=== PATIENT | female | born 1980 | race Caucasian/White ===

== ENCOUNTER 2019-09-18 16:44 | Emergency (ER) | payer SELFPAY ==
[2019-09-18 17:13] VITALS: BP 127/64; PULSE 101; RESP 20; TEMP 36.8; O2SAT 99; BMI 20.7
[2019-09-18 17:41] LABS: Basophils % 0.3 %; Eosinophils % 0.4 %; Hematocrit 37.2 % (37.0-47.0); Hemoglobin 11.4 g/dL (11.5-15.3); Lymphocytes # 2.2 10^3/uL (0.8-4.8); Lymphocytes % 20.4 %; Mean Corpuscular HGB Conc 30.6 g/dL (30.0-36.0); Mean Corpuscular Hemoglobin 25.9 pg (28.0-34.0); Mean Corpuscular Volume 84.5 fL (81-99); Mean Platelet Volume 10.6 fL (7.4-10.4); Monocytes # 0.3 10^3/uL (0.2-0.9); Monocytes % 2.5 %; Neutrophils # 8.3 10^3/uL (1.8-7.7); Neutrophils % 76.1 %; Nucleated Red Blood Cells % 0 %; Platelet Count 248 10^3/cmm (130-400); Red Cell Distribution Width 15.7 % (12.1-15.1); White Blood Count 10.9 10^3/uL (4.0-10.0)
[2019-09-18 17:53] LABS: Alanine Aminotransferase 19 U/L (0-33); Albumin Level 4.2 g/dL (3.5-5.2); Alcohol Level 53 mg/dL (0-10); Alkaline Phosphatase 61 IU/L (35-105); Anion Gap 17.2 (5-19); Aspartate Amino Transferase 29 U/L (0-32); Blood Urea Nitrogen 9 mg/dL (6-20); Calcium 9.4 mg/Dl (8.6-10.0); Carbon Dioxide 25 mmol/L (22-29); Chloride 97 mmol/L (98-107); Globulin 3.4 g/dL (1.3-4.6); Glomerular Filtration Rate 111.9 mL/min (90-130); Glucose 110 mg/dL (74-109); Potassium 4.2 mmol/L (3.5-5.1); Sodium 135 mmol/L (136-145); Total Bilirubin 0.2 mg/dL (0.15-1.2); Total Protein 7.6 g/dL (6.6-8.7)
[2019-09-18 18:01] LABS: Acetaminophen < 5.0 ug/mL (10-30); Salicylate < 0.3 mg/dL (3-10)
== END 2019-09-18 21:35 | disposition left against medical advice (07) ==
LOC: ER 17:58
PROVIDERS: Emergency Medicine; Emergency Provider Physician Assistant; Family Provider Nurse Practitioner Family
DX: Z53.21 Procedure and treatment not carried out due to patient leaving prior to being seen by health care provider (principal)
CPT/HCPCS: 36415; 80053; 80307; 85025; 99281

== ENCOUNTER 2019-09-19 11:21 | Emergency (ER) | payer SELFPAY ==
[2019-09-19 11:23] VITALS: BP 112/76; PULSE 86; RESP 16; TEMP 36.6; O2SAT 99; BMI 20.7
--- NOTE | 2019-09-19 11:27 | ED_ITS ---
HPI - Psych General: Chief Complaint: Psychiatric Symptoms Stated Complaint: STRESSED OUT Time Seen by Provider: 09/19/19 11:27 Source: patient Mode of arrival: ambulatory Limitations: no limitations History of Present Illness: HPI Narrative: Patient is a 39-year-old female who presents to ED today with complaints of severe anxiety; patient states she is having panic attacks; she states she does not want a leave her home or go out in public due to the anxiety; she has chronic depression as well as schizophrenia; patient states she has been on every medication known to man and nothing apart from Valium really helps her symptoms much; she apparently was admitted in a facility recently in [place]; patient states she was seen at her PCP earlier this morning who recommended she come to the ED for admission to [facility]; patient denies feeling suicidal or homicidal; she states that auditory hallucinations are chronic and not telling her to harm herself or others in any way; she reports chronic back pain in which she used to take oxycodone for-states she is having PCP place pain management referral and also has chronic GERD and is out of her stomach meds Duration: constant Associated symptoms: Reports auditory hallucinations and depression; Deny visual hallucinations, homicidal ideation or suicidal ideation Review of Systems Const: Denies: fever or chills Card: Denies: chest pain, palpitations, lightheadedness or syncope Resp: Denies: shortness of breath GI: Denies: abdominal pain, nausea, vomiting or diarrhea Skin/Breast: Denies: rash Neuro: Denies: headache Psych: Reports: anxiety, depression, panic attacks and auditory hallucinations; Denies: paranoia, visual hallucinations, suicidal ideation or homicidal ideation PFS ED PFSH: Statuses (acute, chronic, etc) shown below reflect problem list status as previously entered and may not be historically accurate Social History (Updated 09/15/19 @ 15:19 by Alyssia Iqbal LPN) Smoking and tobacco status: current every day smoker cigarettes Packs smoked per day: 0.5 Alcohol intake: current Alcohol intake frequency: 3 or more drinks per day Alcohol type: hard liquor Lives independently: Yes Household members: family Marital status: Physical Exam Const: COMMON NORMALS: no apparent distress, oriented x3, alert and well nourished GENERAL APPEARANCE: cooperative and well kempt Resp: COMMON NORMALS: normal respiratory effort and clear to auscultation bilaterally AUSCULTATION: clear to auscultation bilaterally Cardio: COMMON NORMALS: regular rate and regular rhythm RATE: regular rate RHYTHM: regular rhythm Neuro: COMMON NORMALS: oriented x3 SENSORIUM/ORIENTATION: Yes alert Psych: COMMON NORMALS: mental status grossly normal, thought process normal, cooperative, affect normal, speech normal and activity/motor behavior normal APPEARANCE: Yes well kempt ATTITUDE: Yes calm ACTIVITY/MOTOR BEHAVIOR: Yes appropriate eye contact, No psychomotor agitation and Yes fidgeting SPEECH: Yes normal speech MOOD & AFFECT: Yes anxious THOUGHT PROCESS: normal thought process THOUGHT CONTENT: Yes normal thought content MEMORY/COGNITION: Yes cognition grossly intact INSIGHT: fair JUDGEMENT: judgment good MDM - Psych Lab Data: Labs: Lab Results 09/19/19 Range/Units 12:54 Urine Opiates Scre en Negative (Negative) ng/mL Ur Barbiturates Sc reen Negative (Negative) ng/mL Ur Phencyclidine S crn Negative (Negative) ng/mL Ur Amphetamines Sc reen Negative (Negative) ng/mL U Benzodiazepines Scrn Positive H (Negative) ng/mL Urine Cocaine Scre en Negative (Negative) ng/mL U Marijuana (THC) Screen Positive H (Negative) ng/mL Discharge Plan Discharge Patient Disposition: Home, Self-Care Clinical Impression: Chronic anxiety Schizophrenia Qualifiers: Schizophrenia type: unspecified Qualified Code(s): F20.9 - Schizophrenia, unspecified Acid reflux disease Qualifiers: Esophagitis presence: without esophagitis Qualified Code(s): K21.9 - Gastro- esophageal reflux disease without esophagitis Condition: Stable Prescriptions: New Vistaril 50 mg capsule 50 mg PO Q8H PRN (Reason: anxiety) Qty: 20 RF: 0 pantoprazole 20 mg tablet,delayed release (DR/EC) 20 mg PO QAM 28 Days Qty: 28 RF: 0 gabapentin 300 mg capsule 300 mg PO DAILY 7 Days Qty: 90 RF: 0 Discharge Orders: Discharge Order (Routine); Ordered 09/19/19 Ordered By: Audra Headley Referrals: Maliha Beverly APN [Family Provider] - Discharge Diet: Usual diet Discharge Activity: Resume usual activity Activity Restrictions/Additional Instructions: GO TO [facility] FOR YOUR INTAKE SCREENING EXAM. Discharge Date/Time: 09/19/19 13:50 Coding Level of Care Code ED Service Support Representative for Chg Fwd Exam Problem Focused
[2019-09-19 13:28] LABS: Amphetamines Screen Urine Negative (Negative); Barbiturates Screen Urine Negative (Negative); Benzodiazepines Screen Urine Positive (Negative); Cocaine Screen Urine Negative (Negative); Opiate Screen Urine Negative (Negative); PCP Screen Urine Negative (Negative); THC Screen Urine Positive (Negative)
[2019-09-19 13:47] VITALS: BP 106/82; PULSE 70; O2SAT 100
[2019-09-19] MEDS: acetaminophen 500 mg Tablet 1000 MG PO (13:50)
== END 2019-09-19 13:50 | disposition home or self-care (01) ==
PROVIDERS: Emergency Provider Physician Assistant; Family Provider Nurse Practitioner Family
DX: F20.9 Schizophrenia, unspecified (principal); F41.8 Other specified anxiety disorders; K21.9 Gastro-esophageal reflux disease without esophagitis; F17.210 Nicotine dependence, cigarettes, uncomplicated
CPT/HCPCS: 80307; 84703; 99284; A9270

== ENCOUNTER 2019-09-29 19:16 | Inpatient (IN) | payer SELFPAY ==
[2019-09-29] VITALS (40 sets, daily range): BP systolic 112–121; BP diastolic 60–83; PULSE 71–107; RESP 12–22; O2SAT 81–100; BMI 29.9
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
[2019-09-29] MEDS: ziprasidone 20 mg/mL SDV (19:30)
[2019-09-29] MEDS: LORazepam 2 mg/mL INJ 1 mL (19:45)
[2019-09-29] MEDS: diphenhydrAMINE 50 mg/mL SDV 1mL (19:56)
[2019-09-29 20:01] LABS: HCG Qualitative Urine. Negative (Negative)
[2019-09-29 21:15] LABS: Basophils % 0.2 %; Eosinophils % 0.2 %; Hematocrit 43.8 % (37.0-47.0); Hemoglobin 13.5 g/dL (11.5-15.3); Lymphocytes # 1.9 10^3/uL (0.8-4.8); Lymphocytes % 34.8 %; Mean Corpuscular HGB Conc 30.8 g/dL (30.0-36.0); Mean Corpuscular Hemoglobin 25.7 pg (28.0-34.0); Mean Corpuscular Volume 83.4 fL (81-99); Mean Platelet Volume 11.1 fL (7.4-10.4); Monocytes # 0.2 10^3/uL (0.2-0.9); Monocytes % 3.2 %; Neutrophils # 3.3 10^3/uL (1.8-7.7); Neutrophils % 61.4 %; Nucleated Red Blood Cells % 0 %; Platelet Count 234 10^3/cmm (130-400); Red Blood Count 5.25 10^6/uL (4.1-5.3); Red Cell Distribution Width 15.9 % (12.1-15.1); White Blood Count 5.4 10^3/uL (4.0-10.0)
[2019-09-29] MEDS: ketamine 100 mg/mL Inj 5 mL 500 MG (21:23)
[2019-09-29 21:30] LABS: Add Urine Microscopic? NO
[2019-09-29 21:34] LABS: Alanine Aminotransferase 24 U/L (0-33); Alkaline Phosphatase 65 IU/L (35-105); Anion Gap 22.1 (5-19); Aspartate Amino Transferase 35 U/L (0-32); Blood Urea Nitrogen 6 mg/dL (6-20); Calcium 10.1 mg/dL (8.5-10.5); Carbon Dioxide 20 mmol/L (22-29); Chloride 111 mmol/L (98-107); Globulin 3.5 g/dL (1.3-4.6); Glomerular Filtration Rate 111.9 mL/min (90-130); Glucose 118 mg/dL (74-109); Potassium 4.1 mmol/L (3.5-5.1); Sodium 149 mmol/L (136-145); Total Bilirubin 0.2 mg/dL (0.15-1.2); Total Protein 8.5 g/dL (6.6-8.7)
[2019-09-29 21:36] LABS: Urine Appearance Clear (CLEAR); Urine Color Straw (Yellow); pH Urine 5 (5-7)
[2019-09-29 21:37] LABS: Bilirubin Urine Neg (NEGATIVE); Blood Urine Neg (Negative); Glucose Urine UA Norm (Normal); Ketones Urine Negative (Negative); Leukocyte Esterase Urine Negative (Negative); Nitrate Urine Negative (Negative); Protein Urine Neg (Negative); Specific Gravity, Urine 1.005 (1.005-1.030); Urobilinogen Urine Norm (Negative)
[2019-09-29 21:40] LABS: Acetaminophen < 5.0 ug/mL (10-30); Salicylate < 0.3 mg/dL (3-10)
[2019-09-29 21:49] LABS: Alcohol Level 304 mg/dL (0-10)
[2019-09-29 21:54] LABS: Amphetamines Screen Urine Negative (Negative); Barbiturates Screen Urine Negative (Negative); Benzodiazepines Screen Urine Negative (Negative); Cocaine Screen Urine Negative (Negative); Opiate Screen Urine Negative (Negative); PCP Screen Urine Negative (Negative); THC Screen Urine Positive (Negative)
--- NOTE | 2019-09-29 22:31 | PC.NURSE ---
as primary nurse. i confirm and agree with Darlingacoustical tile drill press operator violent restraint assessments
--- NOTE | 2019-09-29 22:52 | PC.NURSE ---
Pt transferred from restrain bed to hospital bed via hospital staff at approx 2030. Pt placed in soft 4 point restraints. Inwelling harrington catheter placed x1 attempt without difficulties. 2000ml of urine drained from harrington at approx 2140. No extremity compromise noted during during extremity checks and upon restraint removal
[2019-09-29] MEDS: folic acid 1 MG, multivitamin inj 10 ML, thiamine 100 MG in sodium chloride 0.9% 1,000 ML 252.8 MG IV (23:55)
[2019-09-30] VITALS (26 sets, daily range): BP systolic 100–127; BP diastolic 45–82; PULSE 67–106; RESP 15–21; TEMP 36.6–37; O2SAT 87–100
[2019-09-30 00:19] LABS: Alcohol Level 239 mg/dL (0-10)
--- NOTE | 2019-09-30 01:07 | PC.NURSE ---
5 rec'd pt to ed room 8 restrained. moved to violent restraint bed related behavioral activity. yelling screaming profanity, threatening staff. thrashing. attempting to spit on and lick staff. 1929 geodon 20mg given. 1944 conts with violent behavior ativan 2mg given. 1955 benedryl 50 given r/t cont behavior 2004 [id number] given r/t to cont violent behavior. conts with thrashing and fighting restraints and cuzing staff. 2014 pt sleepy and more calm at this time. 2024 harrington cath placed as ordered 2029 moved over to ER cart with soft restraints. 2044 remains sedated at this time. 1:1 sitter at bedside as well as patel,box sealing machine feeder. 2119 soft restraints off at this time. currently remains sedated
--- NOTE | 2019-09-30 08:02 | PC.NURSE ---
Nursing Note; random room inspection completed no contraband found.
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
[2019-09-30] MEDS: multivitamin therapeutic Tablet 1 TAB PO (09:06)
[2019-09-30] MEDS: folic acid 1 mg Tablet PO (09:06)
[2019-09-30] MEDS: thiamine 100 mg Tablet PO (09:06)
[2019-09-30] MEDS: nicotine 2 mg Gum BUCCAL (11:00)
[2019-09-30] MEDS: cloNIDine 0.1 mg Tablet PO (20:53)
[2019-09-30] MEDS: OLANZapine 10 mg TABLET PO (20:53)
[2019-10-01 06:00] VITALS: BP 111/71; PULSE 85; RESP 17; TEMP 37.6; O2SAT 98
[2019-10-01] MEDS: thiamine 100 mg Tablet PO (09:27)
[2019-10-01] MEDS: multivitamin therapeutic Tablet 1 TAB PO (09:27)
[2019-10-01] MEDS: folic acid 1 mg Tablet PO (09:27)
--- NOTE | 2019-10-01 11:05 | PM.NPN ---
Subjective NPU Subjective: Interval history: Zoila presents today reporting that she is tolerating the medication adjustments that we may and that she talk to her brother and that she believes she is going to have a place to stay. We discussed meeting with the treatment team in the morning and exploring the opportunities available to her. She did endorse having a lot of anxiety and we advised her to utilize the Vistaril like she does at home. Mental Status Exam MSE Comments: This is a slender white female with adequate dress, grooming and eye contact. Poor dentition/absent teeth no abnormal movements. Cooperative with exam in mild distress. Speech was decreased rate and volume. Mood described as anxious, affect congruent. Thought process organized. Thought content: Patient denied any suicidal or homicidal ideation, though there was reports of her trying to jump out of the vehicle, there were no delusions noted but she does endorse paranoia, she endorses auditory hallucinations and occasional visual hallucinations. Attention and concentration appeared intact and memory appeared unreliable but none were formally tested. She is alert and oriented x3. Insight and judgment are limited. Vitals/I&O/Wt Last Vital Signs Temperature 98.5, pulse 95, respirations 28, pulse ox 100%, blood pressure 112/67. Weight last 48 hrs Weight 49.215 kg Physical Exam Urinary Catheter Management^: Epstein: Cath Placed During This Visit: no Data NPU : 09/29/19 21:05 09/29/19 21:05 A&P Additional A&P Information This is a 39-year-old white female with a reported extended history of trauma, intellectual disability, significant addiction and reported thought disorder who presents off of medication with resolving intoxication with a hope to be discharged. 1. Continue current medication. 2. initiate lamictal and continue titration after discharge 3. Encourage individual, group and milieu therapy. 4. Continue every 15 minute checks for safety. 5. At the time of discharge encourage sober living and aftercare at the highest level of treatment to which she is willing to commit. Involuntary Hold Information 96 Hour Hold: 96 Hour Involuntary Admission: No Attestations NPU Medical Necessity Statement*: Inpatient hospitalization is medically necessary and the clinically appropriate intervention at this time. We will initiate medications and titrate to effect. Likely length of stay 2 to 5 days. Coding Level of Care Code Acute Transverse Abdominal Muscle Surgeon for Blanca Coffman
[2019-10-01 13:40] VITALS: O2SAT 103
[2019-10-01] MEDS: nicotine 2 mg Gum BUCCAL ×2 (14:36→17:48)
[2019-10-01] MEDS: hyDROXYzine 25 mg Capsule 50 MG PO (17:48)
[2019-10-01] MEDS: OLANZapine 10 mg TABLET PO (20:50)
[2019-10-01 20:51] VITALS: BP 127/82
[2019-10-01] MEDS: cloNIDine 0.1 mg Tablet PO (20:51)
[2019-10-01] MEDS: trazodone 50 mg Tablet PO (20:51)
[2019-10-01 22:00] VITALS: BP 112/67; PULSE 95; RESP 28; TEMP 36.9; O2SAT 100
[2019-10-02 06:00] VITALS: BP 99/56; PULSE 65; RESP 17; TEMP 36.9; O2SAT 99
[2019-10-02] MEDS: thiamine 100 mg Tablet PO (08:34)
[2019-10-02] MEDS: folic acid 1 mg Tablet PO (08:34)
[2019-10-02] MEDS: multivitamin therapeutic Tablet 1 TAB PO (08:34)
[2019-10-02] MEDS: nicotine 2 mg Gum BUCCAL (12:15)
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
[2019-10-02 18:00] VITALS: BP 99/56; PULSE 65; RESP 17; TEMP 36.9; O2SAT 99
--- NOTE | 2019-10-02 19:20 | PM.NPN ---
Subjective NPU Subjective: Interval history: Zoila presented today with a plan to possibly discharge to home. She endorsed feeling better and feeling that the medication would slowly but surely through his job and she would be able to manage how she is feeling. She reportedly got a hold of her brother had made arrangements for a ride. Discharge process was put into place but then she was unable to get a ride before it was too late. Mental Status Exam MSE Comments: This is a slender white female with adequate dress, grooming and eye contact. Poor dentition/absent teeth no abnormal movements. Cooperative with exam in no acute distress. Speech was slightly decreased rate and volume. Mood described as a little better, affect congruent. Thought process organized. Thought content: Patient denied any suicidal or homicidal ideation, there were no delusions noted but she does endorse paranoia that is improving, she endorses decreasing auditory hallucinations and denied visual hallucinations. Attention and concentration appeared intact and memory appeared unreliable but none were formally tested. She is alert and oriented x3. Insight and judgment are limited. Vitals/I&O/Wt Last Vital Signs Temp 98.6 F 10/02/19 21:09 Pulse 92 10/02/19 21:09 Resp 24 H 10/02/19 21:09 BP 116/89 10/02/19 21:09 Pulse Ox 98 10/02/19 21:09 Physical Exam Urinary Catheter Management^: Epstein: Cath Placed During This Visit: no Data NPU : 09/29/19 21:05 09/29/19 21:05 A&P Additional A&P Information This is a 39-year-old white female with a reported extended history of trauma, intellectual disability, significant addiction and reported thought disorder who presents off of medication with resolving intoxication with a hope to be discharged. 1. Continue current medication. 2. She decided against initiating the Lamictal and so maybe she sees her outpatient doctor. 3. Encourage individual, group and milieu therapy. 4. Continue every 15 minute checks for safety. 5. At the time of discharge encourage sober living and aftercare at the highest level of treatment to which she is willing to commit. Involuntary Hold Information 96 Hour Hold: 96 Hour Involuntary Admission: No Attestations NPU Medical Necessity Statement*: Inpatient hospitalization is medically necessary and the clinically appropriate intervention at this time. We will monitor medications. Plan for discharge tomorrow. Likely length of stay one day. Coding Level of Care Code Acute Record Systems Analyst for Blanca Coffman
[2019-10-02 21:09] VITALS: BP 116/89; PULSE 92; RESP 24; TEMP 37; O2SAT 98
[2019-10-02] MEDS: cloNIDine 0.1 mg Tablet PO (21:31)
[2019-10-02] MEDS: OLANZapine 10 mg TABLET PO (21:31)
[2019-10-02] MEDS: trazodone 50 mg Tablet PO (21:34)
[2019-10-03 06:00] VITALS: BP 102/55; PULSE 66; RESP 18; TEMP 36.6; O2SAT 98
[2019-10-03] MEDS: thiamine 100 mg Tablet PO (08:46)
[2019-10-03] MEDS: multivitamin therapeutic Tablet 1 TAB PO (08:46)
[2019-10-03] MEDS: folic acid 1 mg Tablet PO (08:46)
--- NOTE | 2019-10-03 09:24 | PC.NURSE ---
discharge meds called into [facility], Clonidine & Zyprexa, spoke to Una siegel pharmacist.
== END 2019-10-03 09:00 | disposition home or self-care (01) | DRG 882 ==
LOC: ER 23:53 → NP 23:53
PROVIDERS: Admitting Provider Psychiatry & Neurology Psychiatry; Emergency Provider Family Medicine; Family Provider Nurse Practitioner Family; PCP Family Medicine; Visit Provider Psychiatry & Neurology Psychiatry
DX: F43.20 Adjustment disorder, unspecified (principal); F60.89 Other specific personality disorders; F17.210 Nicotine dependence, cigarettes, uncomplicated; F12.90 Cannabis use, unspecified, uncomplicated; Z88.8 Allergy status to other drugs, medicaments and biological substances; Z79.899 Other long term (current) drug therapy
CPT/HCPCS: 12345; 36415; 51702; 80053; 80307; 81003; 81025; 85025; 99285; A9270; J1200; J2060; J3411; J3486; J3490; J7030

== ENCOUNTER → 2020-01-18 16:01 | Outpatient (BNVA) | payer MEDICAID, SELFPAY | PROVIDERS: PCP Family Medicine; Visit Provider Nurse Practitioner | DX: F60.3 Borderline personality disorder (principal); M54.17 Radiculopathy, lumbosacral region; K21.9 Gastro-esophageal reflux disease without esophagitis | CPT/HCPCS: 81000 ==

== ENCOUNTER → 2020-03-14 15:45 | Outpatient (BNVA) | payer MEDICAID, SELFPAY | PROVIDERS: PCP Family Medicine; Visit Provider Nurse Practitioner | DX: N91.2 Amenorrhea, unspecified (principal); F41.9 Anxiety disorder, unspecified; F32.9 Major depressive disorder, single episode, unspecified; M54.17 Radiculopathy, lumbosacral region; R60.9 Edema, unspecified; L98.9 Disorder of the skin and subcutaneous tissue, unspecified | CPT/HCPCS: 81025 ==

== ENCOUNTER 2022-02-05 14:51 | Inpatient (IN) | payer MEDICAID, SELFPAY ==
--- NOTE | 2022-02-05 15:01 | W.ED.GENADLT ---
HPI - General Adult General: Chief complaint: Psychiatric Symptoms Stated complaint: si Time Seen by Provider: 02/05/22 15:01 History of Present Illness: HPI: [41]yo patient w/ hx of depression presenting for depression with SI with plan. She was planning to strangle herself and cut her self before deciding to come the ER. On arrival, the patient is AAOx3 and cooperative with my evaluation. No focal complaints of chest pain, shortness of breath, palpitations, N/V, focal GI/ complaints. Currently denies HI. No complaints of hallucinations. Onset: acute on chronic Duration: ongoing Location: home Severity: severe Associated symptoms: Deny chest pain, dyspnea, nausea, rash, palpitations or vomiting Review of Systems Const: Denies: fever(s) or chills Eyes: Denies: change in vision ENMT: Denies: mouth pain Card: Denies: chest pain or palpitations Resp: Denies: dyspnea or non-productive cough GI: Denies: abdominal pain, nausea, vomiting or diarrhea : Denies: dysuria Musc: Denies: extremity pain Skin/Breast: Denies: rash or new lesions Neuro: Denies: weakness in extremities Psych: Reports: depression and suicidal ideation Mo/Lymph: Denies: easy bruising PFSH ED PFSH: Medical History Alcohol dependence Amphetamine addiction Borderline personality disorder Cannabis dependence with current use Chronic post-traumatic stress disorder External hemorrhoid Gastric reflux Insomnia Radiculopathy, lumbosacral region left more than right Surgical History History of 4 times Family History Other COPD (chronic obstructive pulmonary disease) with emphysema Denies family history of Bleeding disorder Social History Smoking and tobacco status: current every day smoker cigarettes Packs smoked per day: 0.5 Second hand smoke exposure: Yes Smoking risk assessment/counseling performed?: Yes Alcohol intake: unknown Desire information about alcohol rehabilitation?: No Counseling given: No Desire information about substance/drug rehabilitation?: No Counseling given: No Adopted: No Caregiver/support person: No Lives independently: Yes Household members: family Housing: House Marital status: Legally Number of children: 4 service: No Current occupational status: disabled History of recent travel: No Current gender identity: Female Physical Exam Const: COMMON NORMALS: alert HENMT: COMMON NORMALS: atraumatic HEAD & SCALP: atraumatic MOUTH: moist mucous membranes not abnormal Eye: COMMON NORMALS: EOMs intact bilaterally and conjunctivae normal CONJUNCTIVA: Yes conjunctivae normal Neck/C-Spine: COMMON NORMALS: full ROM and supple Resp: COMMON NORMALS: normal respiratory effort and clear to auscultation bilaterally AUSCULTATION: clear to auscultation bilaterally Cardio: COMMON NORMALS: regular rate RATE: regular rate GI: COMMON NORMALS: Soft to palpation and non-tender PALPATION: Yes Soft to palpation Extremity: COMMON NORMALS: full ROM Neuro: SENSORIUM/ORIENTATION: Yes alert MOTOR EXAM: No Abnormal motor strength present and Other motor observations present (no focal motor deficits) Psych: SPEECH: Yes excessive MOOD & AFFECT: Yes depressed mood, Yes anxious, Yes tearful and Yes fearful Course Vital Signs: Vital signs: Vital Signs Temperature 99.4 F 02/05/22 15:22 Pulse Rate 92 02/05/22 15:22 Respiratory Rate 24 H 02/05/22 15:22 Blood Pressure 116/78 02/05/22 15:22 Pulse Oximetry 97 02/05/22 15:22 MDM - General Adult Medical Decision Making [41]yo patient w/ hx of depression presenting for depression with SI with plan. HDS, exam within normal limit Thoughts are linear and organized, and the patient has no AH/VH, or HI. Clinically the patient displays no overt toxidrome; they are well appearing, with low suspicion for toxic ingestion given history and exam. Symptoms unlikely 2/2 anemia, hypothyroidism, infection, or ICH. Workup: CBC, CMP, Lipase, salicylate/tylenol, HCG, UDS Lab findings: wnl. Patient received 1mg of ativan for anxiety [4:30pm] On reassessment, labs and workup wnl. Patient is hemodynamically stable with no acute medical complaints. Case discussed with psychiatric provider Dr. Dejesus at [facility] psych inpatient with recommendation for admission. Patient is placed under a 96 hr hold for significant thoughts with suicide and almost actuating plan. Disposition: Psych Discharge Plan Discharge Condition: Stable Prescriptions: No Action imiquimod [Aldara] 5 % cream in packet 1 applic topical .at bedtime M-F Qty: 12 0RF clonidine HCl 0.1 mg tablet 0.1 mg PO BEDTIME 30 Days Qty: 30 2RF gabapentin 800 mg tablet 800 mg PO TID Qty: 90 2RF nicotine 21 mg/24 hr patch 24 hour 1 patch transdermal DAILY Qty: 28 0RF Referrals: Honorio Solares, FISHING ROD ASSEMBLER-C [Primary Care Provider] - Coding Level of Care Code ED Automatic Lathe Setter for Chg Fwd Exam Comprehensive
[2022-02-05 15:03] VITALS: BMI 20.7
[2022-02-05 15:22] VITALS: BP 116/78; PULSE 92; RESP 24; TEMP 37.4; O2SAT 97
[2022-02-05 15:57] LABS: Eosinophils # 0.1 10^3/uL (0.0-0.8); Eosinophils % 1.1 %; Hematocrit 45.1 % (37.0-47.0); Lymphocytes # 2.2 10^3/uL (0.8-4.8); Lymphocytes % 29.2 %; Mean Corpuscular HGB Conc 33.3 g/dL (30.0-36.0); Mean Corpuscular Hemoglobin 28.1 pg (28.0-34.0); Mean Corpuscular Volume 84.6 fl (81-99); Mean Platelet Volume 11.5 fL (7.4-10.4); Monocytes # 0.4 10^3/uL (0.2-0.9); Monocytes % 4.6 %; Neutrophils # 4.89 10^3/uL (1.8-7.7); Nucleated Red Blood Cells % 0 %; Platelet Count 174 10^3/cmm (130-400); Red Blood Count 5.33 10^6/uL (4.1-5.3); Red Cell Distribution Width 13.3 % (12.1-15.1); White Blood Count 7.5 10^3/uL (4.0-10.0)
[2022-02-05] MEDS: LORazepam 1 mg Tablet PO (16:13)
[2022-02-05 16:30] LABS: Alanine Aminotransferase 23 U/L (0-33); Albumin Level 4.2 g/dL (3.5-5.2); Alkaline Phosphatase 73 IU/L (35-105); Anion Gap 13.6 (5-19); Aspartate Amino Transferase 23 U/L (0-32); Blood Urea Nitrogen 6 mg/dL (6-20); Calcium 9.1 mg/dL (8.5-10.5); Carbon Dioxide 24 mmol/L (22-29); Chloride 101 mmol/L (98-107); Globulin 3.2 g/dL (1.3-4.6); Glomerular Filtration Rate 110.7 mL/min (90-130); Glucose 138 mg/dL (65-115); Lipase 12 U/L (13-60); Osmolality Calculated 280 mOsm/kg (285-295); Potassium 3.6 mmol/L (3.5-5.1); Salicylate 0.9 mg/dL (3-10); Sodium 135 mmol/L (136-145); Total Bilirubin 0.4 mg/dL (0.15-1.2); Total Protein 7.4 g/dL (6.6-8.7)
[2022-02-05 16:39] LABS: Acetaminophen < 5.0 ug/mL (10-30)
[2022-02-05 16:49] LABS: Amphetamines Screen Urine Negative (Negative); Barbiturates Screen Urine Negative (Negative); Benzodiazepines Screen Urine Negative (Negative); Cocaine Screen Urine Negative (Negative); Opiate Screen Urine Negative (Negative); PCP Screen Urine Negative (Negative); THC Screen Urine Negative (Negative)
[2022-02-05 16:52] LABS: HCG, Serum Qual Negative (Negative)
[2022-02-05 18:04] VITALS: BP 128/82; PULSE 90; RESP 18; TEMP 36.7; O2SAT 95
[2022-02-05] MEDS: OLANZapine 5 mg ODT PO (18:42)
[2022-02-05] MEDS: hyDROXYzine 25 mg Capsule 50 MG PO (18:42)
[2022-02-05 20:38] VITALS: BP 110/72; PULSE 90; RESP 18; TEMP 36.6; O2SAT 96
--- NOTE | 2022-02-05 20:38 | PC.ADMIT ---
Admission Note: Patient came to the ED for help voluntarily. There is an affidavit that states that the patient expressed a plan to cut herself or strangle herself. Her UDS was negative and she states her drug of choice in the past was crack cocaine. Patient endorses auditory hallucinations but state that they are nice to her. She reports a history of paranoid schizophrenia. She wants her Valium and when she couldn't get it she wanted to leave AMA. The patient,Zoila German,41 y/o, was given written information regarding hospital policies, unit procedures and contact persons. Patient's smoking status: current every day smoker. Vital Signs - 8 hr 02/05/22 15:22 02/05/22 18:04 Temperature 99.4 F 98.0 F Pulse Rate 92 90 Respiratory Rate 24 H 18 Blood Pressure 116/78 128/82 Pulse Oximetry 97 95
[2022-02-05 23:22] VITALS: BP 110/72
--- NOTE | 2022-02-05 23:24 | PC.NURSE ---
Patient came to the nurses station around 1944 and said that she wanted her Valium. She received Zyprexa and Vistaril at 1843. She was educated on the medications that she had been given and she was resistant to listen. She said that she came in voluntarily and wanted to leave now. It was explained to her that she had not given the medication time to work and that we did have an affidavit which could hold her here. She verbalized understanding and went back to her room. She was asleep by 2044. She refused her clonidine and gabapentin.
[2022-02-06 06:00] VITALS: BP 108/75; PULSE 83; RESP 20; TEMP 36.9; O2SAT 94
[2022-02-06] MEDS: OLANZapine 5 mg ODT PO (09:38)
[2022-02-06] MEDS: gabapentin 400 mg Capsule 800 MG PO ×3 (09:38→20:18)
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
[2022-02-06 14:00] VITALS: BP 113/69; PULSE 69; RESP 20; TEMP 36.7; O2SAT 95
[2022-02-06 19:37] VITALS: BP 95/64; PULSE 60; RESP 16; TEMP 36.7; O2SAT 93
[2022-02-06 20:18] VITALS: BP 95/64
--- NOTE | 2022-02-06 23:30 | PC.NURSE ---
PT HAS BEEN IN BED RESTING WITH EYES CLOSED. WAKEN BY NURSE TO SHIFT ASSESSMENT. PT DENIED ANY SI/HI OR AVH. STATES SHE IS JUST VERY TIRED. REMAINED IN BED AFTER ASSESSMENT. NO C/O VOICED.
[2022-02-07 06:00] VITALS: BP 90/56; PULSE 59; RESP 16; TEMP 37; O2SAT 92
[2022-02-07] MEDS: gabapentin 400 mg Capsule 800 MG PO ×2 (08:38→20:18)
[2022-02-07] MEDS: hyDROXYzine 25 mg Capsule 50 MG PO (08:40)
--- NOTE | 2022-02-07 08:40 | PC.NURSE ---
PRN Medication Patient fidgeting and pacing, mumbling under her breath. Patient states she feels anxious and asked for something to help with this. Vistaril 50mg given PO.
--- NOTE | 2022-02-07 09:30 | PC.NURSE ---
PRN Follow Up Patient lying in bed with eyes closed. Will continue to monitor.
--- NOTE | 2022-02-07 12:03 | P.NPUPN_ITS ---
Subjective NPU Subjective: She continues to be very anxious. She says that she is not having any suicidal thoughts. She wants to be released and thinks that she can go to the mental health clinic and get Valium or clonazepam immediately. Yesterday she told me that they only gave her clonazepam at [facility] and that did not work. Today she says that they did work. It has been over 2 years since they have given it to her there. She was told that that would be extremely unlikely. She was told again the appropriate treatment for anxiety and says that she does not want to take an antidepressant. She would need a Medicaid ride before she can go home and that might be Wednesday before we can have that arranged. She does not seem ready for discharge today. Mental Status Exam MSE Comments: This is a 41-year-old thin female who appears approximately her stated age and is in no acute distress. She was found sitting on her bed with her head hanging down. She is focused on leaving so that she can go to a place that will give her my Valium psychomotor activity is normal. Speech is at a regular rate and rhythm, normal volume, good articulation, not pressured. Alert, oriented X3 Attention and concentration appear to be normal. Memory is intact Mood is described as good. Affect is is dysphoric. Thought process is logical and goal-directed. Thought content: Denies auditory and visual hallucinations. No delusions or paranoia are noted. No current suicidal ideation. He denies homicidal ideation. Fund of knowledge is probably about average. Insight and judgment appear to be poor. Impulse control is fair. Cognition: Patient Appearance: Disheveled/Poor Hygiene Level of Consciousness: Awake Patient Cognition Impaired: No Ability to Follow Directions: Good Patient Orientation (long list): Person, Place, Name, Age and Birthday Comprehension Ability: Understands Concepts Hallucination Type: None Delusion Description: Not Present Thought Process: Disorganized and Indecisive Affect: Affect Description: Labile Depressive Symptoms: Increased Anxiety, Increased Fatigue and Increased Irritability Behavior: Patient Behavior: Appropriate and Cooperative Speech Pattern: Appropriate and Mumbled Vitals/I&O/Wt Last Vital Signs Temp 98.6 F 02/07/22 06:00 Pulse 59 L 02/07/22 06:00 Resp 16 02/07/22 06:00 BP 90/56 02/07/22 06:00 Pulse Ox 92 02/07/22 06:00 Weight last 48 hrs Weight 63.503 kg Data NPU : 02/05/22 15:50 02/05/22 15:50 A&P Assessment and plan (1) Insomnia: Status: Acute (2) Borderline personality disorder: Status: Chronic (3) Chronic post-traumatic stress disorder: Status: Acute (4) Anxiety and depression: Status: Chronic Plan This is a 41-year-old female with multiple past traumas who has been previously diagnosed with borderline personality disorder who presents with anxiety and depression wanting to start back on Valium Plan: 1. Continue current medication. 2. Continue every 15 minute checks for safety. 3. Encourage individual, group and milieu therapies. 4. Encourage sober living treatment after discharge at the highest level of care to which she is willing to commit. 5. We will monitor for safety for herself in the community prior to discharge. Involuntary Hold Information 96 Hour Hold: 96 Hour Involuntary Admission: No Attestations NPU Medical Necessity Statement*: Inpatient hospitalization is medically necessary and the clinically appropriate intervention at this time. We will initiate medications and make changes as indicated. Coding Level of Care Code Acute Clinical Services Professional for Blanca Fwaura Diagnoses Insomnia G47.00 Borderline personality disorder F60.3 Chronic post-traumatic stress disorder F43.12 Anxiety and depression F41.9; F32.9
[2022-02-07 14:00] VITALS: BP 97/60; PULSE 73; RESP 16; TEMP 36.9; O2SAT 97
[2022-02-07 19:49] VITALS: BP 110/66; PULSE 63; RESP 18; TEMP 37.3; O2SAT 94
[2022-02-07 20:17] VITALS: BP 110/66
[2022-02-07] MEDS: cloNIDine 0.1 mg Tablet PO (20:17)
[2022-02-08 06:00] VITALS: BP 104/71; PULSE 84; RESP 18; TEMP 36.8; O2SAT 97
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
[2022-02-08] MEDS: gabapentin 400 mg Capsule 800 MG PO (08:59)
[2022-02-08 09:15] VITALS: BP 104/71; PULSE 84; RESP 18; TEMP 36.8; O2SAT 97
--- NOTE | 2022-02-09 08:34 | PC.OT ---
OT EVALUATION ORDERS RECEIVED. PATIENT DISCHARGED BEFORE EVALUATION COULD BE COMPLETED.
== END 2022-02-08 09:47 | disposition home or self-care (01) | DRG 880 ==
LOC: ER 15:01 → NP 17:10
PROVIDERS: Admitting Provider Psychiatry & Neurology Psychiatry; Emergency Provider Emergency Medicine; PCP Nurse Practitioner; Visit Provider Psychiatry & Neurology Psychiatry
DX: F41.8 Other specified anxiety disorders (principal); R45.851 Suicidal ideations; F60.3 Borderline personality disorder; F43.12 Post-traumatic stress disorder, chronic; F17.210 Nicotine dependence, cigarettes, uncomplicated; G47.00 Insomnia, unspecified
CPT/HCPCS: 36415; 80053; 80306; 80307; 83690; 84703; 85025; 99285

== ENCOUNTER → 2022-07-13 09:06 | Outpatient (BNVA) | payer MEDICAID, SELFPAY | PROVIDERS: PCP Nurse Practitioner; Visit Provider Anesthesiology Pain Medicine | DX: M54.16 Radiculopathy, lumbar region (principal); M47.816 Spondylosis without myelopathy or radiculopathy, lumbar region; M79.604 Pain in right leg; M79.605 Pain in left leg; F17.210 Nicotine dependence, cigarettes, uncomplicated | CPT/HCPCS: 99204 ==

== ENCOUNTER 2022-08-06 10:01 | Emergency (ER) | payer MEDICAID, SELFPAY ==
[2022-08-06 10:06] VITALS: PULSE 73; RESP 18; O2SAT 98; BMI 20.7
--- NOTE | 2022-08-06 10:42 | W.ED.PSYCHS ---
HPI - Psych General: Chief Complaint: Psychiatric Symptoms Stated Complaint: depression, anxiety Time Seen by Provider: 08/06/22 10:10 Source: patient Mode of arrival: ambulatory Limitations: no limitations History of Present Illness: Patient is a 41-year-old female who presents to ED today with a complaint of anxiety. Patient states she is currently going through a divorce and just has a lot of shit going on . She states years ago she was on Valium and wants to be placed back on my benzos . Patient tells me she is not suicidal or homicidal. She has not had any thoughts of wanting to harm herself or harm others. Patient tells me she has been seen at [facility] previously but her last appointment was over a year ago. She does not want to be hospitalized at [facility] stating last time she was hospitalized they did not give her the benzodiazepines that she requested. MD complaint: other (anxiety) Onset (ago): week(s) Duration: other (chronic) History of same: Yes Exacerbating factors: other (recent divorce) Treatments prior to arrival: none Review of Systems Const: Denies: fever(s) Card: Denies: chest pain Resp: Denies: dyspnea GI: Denies: nausea, vomiting or diarrhea Musc: Denies: neck pain, back pain, extremity pain or joint pain Skin/Breast: Denies: rash Neuro: Denies: headache(s), numbness in extremities, weakness in extremities, sensory changes, dizziness or confusion [facility] ED PFSH: Medical History Alcohol dependence Amphetamine addiction Borderline personality disorder Cannabis dependence with current use Chronic post-traumatic stress disorder External hemorrhoid Gastric reflux Insomnia Radiculopathy, lumbosacral region left more than right Surgical History History of 4 times Family History Other COPD (chronic obstructive pulmonary disease) with emphysema Denies family history of Bleeding disorder Social History Smoking and tobacco status: current every day smoker cigarettes Packs smoked per day: 0.5 Second hand smoke exposure: Yes Smoking risk assessment/counseling performed?: Yes Alcohol intake: unknown Desire information about alcohol rehabilitation?: No Counseling given: No Desire information about substance/drug rehabilitation?: No Counseling given: No Adopted: No Caregiver/support person: No Lives independently: Yes Household members: family Housing: House Marital status: Legally Number of children: 4 service: No Current occupational status: disabled History of recent travel: No Current gender identity: Female Female Reproductive History: Date of last menstrual period: 01/31/20 Physical Exam Const: COMMON NORMALS: no acute distress, patient oriented x3, no limitations and alert GENERAL APPEARANCE: cooperative and appears older than stated age ORIENTATION/CONSCIOUSNESS: Yes awake, Yes oriented to person, Yes oriented to place and Yes oriented to time HENMT: COMMON NORMALS: normocephalic and atraumatic HEAD & SCALP: normal to inspection, normocephalic and atraumatic Resp: COMMON NORMALS: normal respiratory effort and clear to auscultation bilaterally AUSCULTATION: clear to auscultation bilaterally Cardio: COMMON NORMALS: regular rate and regular rhythm RATE: regular rate RHYTHM: regular rhythm Neuro: JAZMYN COMA SCALE: document GCS findings Jazmyn coma scale eye opening: Spontaneous [place] coma scale verbal response: Orientated Jazmyn coma scale motor response: Obey commands [place] coma scale total score: 15 COMMON NORMALS: patient oriented x3 SENSORIUM/ORIENTATION: Yes alert, Yes oriented to person, Yes oriented to place and Yes oriented to time Psych: COMMON NORMALS: Normal thought process present, cooperative, speech normal, denies hallucinations, denies homicidal ideation and denies suicidal ideation APPEARANCE: Yes disheveled ATTITUDE: Yes calm ACTIVITY/MOTOR BEHAVIOR: Yes Avoids eye contact (attititude/behavior) SPEECH: Yes normal speech MOOD & AFFECT: Yes euthymic mood THOUGHT PROCESS: Normal thought process present THOUGHT CONTENT: Yes Normal thought content present ATTENTION/CONCENTRATION: Yes attention grossly intact and Yes concentration grossly intact MEMORY/COGNITION: Yes memory grossly intact and Yes cognition grossly intact INSIGHT: Good insight present (Psych) JUDGEMENT: Fair judgement present (Psych) Course Vital Signs: Vital signs: Vital Signs Pulse Rate 73 08/06/22 10:06 Respiratory Rate 18 08/06/22 10:06 Pulse Oximetry 98 08/06/22 10:06 Oxygen Delivery Me thod 08/06/22 10:06 MDM - Psych Medical Decision Making Patient is not suicidal or homicidal. She is asking me to be placed back on her benzodiazepines specifically Valium. She does not want to be hospitalized at [facility]. I explained to her that I do not feel this would be an appropriate care plan for her from the emergency department. Patient has an extensive psychiatric history including personality disorder, adjustment disorder, polysubstance abuse, depression, PTSD. I do not think placing her solely on a benzodiazepine is indicated. Did discuss following up with [facility] and she is open to this. She states she will go there and try to get an appointment date and time. I have also placed a referral with case management to aid her in this. Strict return to ED precautions given. Discharge Plan Discharge Patient Disposition: Home Clinical Impression: Anxiety Condition: Stable Prescriptions: No Action duloxetine [Cymbalta] 20 mg capsule,delayed release(DR/EC) 20 mg PO BID Qty: 60 2RF gabapentin 800 mg tablet 800 mg PO TID Qty: 90 2RF nicotine [Nicoderm CQ] 21 mg/24 hr patch 24 hour 1 patch transdermal DAILY Qty: 28 0RF imiquimod [Aldara] 5 % cream in packet 1 applic topical .at bedtime M-F Qty: 12 0RF Discharge Orders: Discharge ED (Routine); Ordered 08/06/22 Ordered By: Audra Headley Referrals: Honroio Solares, QA AUTOMATION ARCHITECT-C [Primary Care Provider] - Activity Restrictions/Additional Instructions: As we discussed you may walk-in to [facility] and request services. I will also have case management call there and try to get you an appointment date and time set up as soon as possible. You need to return to the emergency department for severe depression, any thoughts of wanting to harm yourself or others or any other concerns you may have. Coding Level of Care Code ED [employer] Installer for Blanca Coffman
--- NOTE | 2022-08-06 11:17 | DCPLANNER ---
Addendum entered by Marilia Castro 08/07/22 13:27: social media manager received the following message from [facility] regarding referral: emailed Erika Ricks to call with intake assessment information Original Note: social media manager had message to schedule a follow up appointment for patient with [facility]. social media manager sent patients information to the front office staff at [facility]. Patients information will be printed and reviewed. Clinic will call patient with appointment information.
== END 2022-08-06 11:05 | disposition home or self-care (01) ==
PROVIDERS: Emergency Provider Physician Assistant; PCP Nurse Practitioner
DX: F41.9 Anxiety disorder, unspecified (principal); F17.210 Nicotine dependence, cigarettes, uncomplicated
CPT/HCPCS: 99283

== ENCOUNTER → 2023-05-17 11:38 | Outpatient (BNVA) | payer MEDICAID, SELFPAY | PROVIDERS: PCP Nurse Practitioner; Visit Provider Nurse Practitioner | DX: F41.9 Anxiety disorder, unspecified (principal); F32.9 Major depressive disorder, single episode, unspecified | CPT/HCPCS: 81025 ==

== ENCOUNTER 2023-11-02 02:26 | Emergency (ER) | payer MEDICAID, SELFPAY ==
--- NOTE | 2023-11-02 02:31 | W.ED.AMS ---
Documented by User: Yogesh Rose DO 11/02/23 20:59 HPI - Altered Mental Status General: Chief Complaint: Overdose Stated Complaint: OD Time Seen by Provider: 11/02/23 05:41 Limitations: altered mental status History of Present Illness: Patient brought in by EMS after they were called for police for abnormal behavior on this patient. Patient was knocking on people's doors in the [place] area and not being very strange and abnormal. She cannot sit still she is very fidgety she has pushed pressured speech she does not make sense she is known to the EMS for IV drug use and is a frequent flyer per them. They did give her 2 mg Ativan IV to calm her down which they said it did improve her but she still all over the place. Review of Systems General: Reports: ROS unobtainable due to mental status [facility] ED PFSH: Medical History External hemorrhoid Insomnia Gastric reflux Radiculopathy, lumbosacral region left more than right Borderline personality disorder Cannabis dependence with current use Alcohol dependence Amphetamine addiction Chronic post-traumatic stress disorder Surgical History History of 4 times Family History Other COPD (chronic obstructive pulmonary disease) with emphysema Denies family history of Bleeding disorder Social History Smoking and tobacco/nicotine status: current every day tobacco/nicotine user cigarettes Packs smoked per day: 0.5 Second hand smoke exposure: Yes Alcohol intake: unknown Substance/Drug Use: former Date of last use: 2017 documented hx of iv drug use Adopted: No Caregiver/support person: No Lives independently: Yes Household members: family Housing: House Marital status: Legally Number of children: 4 service: No Current occupational status: disabled Do you think of yourself as: Straight/Heterosexual Current gender identity: Female Female Reproductive History: Para: 4 Physical Exam Const: COMMON NORMALS: no acute distress, average body habitus, alert and well nourished; limitations (Patient has altered mental status appears on probable stimulants) HENMT: COMMON NORMALS: normocephalic, atraumatic, hearing grossly normal bilaterally, external ears normal and Normal external nose present HEAD & SCALP: normocephalic and atraumatic NOSE: Normal external nose present EXTERNAL EAR: Yes external ears normal Eye: COMMON NORMALS: Equal, round and reactive pupils present, EOMs intact bilaterally, conjunctivae normal and no scleral icterus CONJUNCTIVA: Yes conjunctivae normal PUPIL: Yes Equal, round and reactive pupils present Neck/C-Spine: COMMON NORMALS: no JVD Chest: COMMONS NORMALS: normal inspection of the chest and normal palpation of entire chest wall Resp: COMMON NORMALS: normal respiratory effort, No retractions, No use of accessory muscles and clear to auscultation bilaterally AUSCULTATION: clear to auscultation bilaterally Cardio: COMMON NORMALS: no JVD, regular rhythm, S1 normal heart sound present, No gallops present (Cardio) and No murmurs present (Cardio); negative for regular rate (Tachycardic) RATE: abnormal rate (Tachycardic) RHYTHM: regular rhythm HEART SOUNDS: S1 normal heart sound present GI: COMMON NORMALS: Normal to inspection, nondistended, normoactive bowel sounds present, Soft to palpation, No hepatosplenomegaly present and no masses PALPATION: Yes Soft to palpation and Yes No hepatosplenomegaly present Neuro: SENSORIUM/ORIENTATION: Yes alert Course Vital Signs: Vital signs: Vital Signs Temperature 99.3 F 11/02/23 02:32 Pulse Rate 88 11/02/23 07:00 Respiratory Rate 16 11/02/23 07:00 Blood Pressure 102/70 11/02/23 07:00 Pulse Oximetry 100 11/02/23 07:00 Oxygen Delivery Me thod Room Air 11/02/23 07:00 MDM - Altered Mental Status Medical Decision Making Patient was given 20 mg of Geodon because she is unable or unwilling to stay in her bed as she kept crawling out of bed acting out due to the suspected methamphetamine use. Patient was worked up with a normal psychiatric fashion. Anticipate patient be discharged when she wakes up and meth is cleared from her system. Patient is not suicidal or homicidal Differential Diagnosis Likely altered mental status Medical Records I reviewed the patient's medical records. Lab Data I reviewed the patient's lab results. 11/02/23 02:57 11/02/23 02:57 Laboratory Results WBC 7.57 10^3/uL (3.29-11.43) 11/02/23 02:57 RBC 3.67 10^6/uL (3.85-5.65) L 11/02/23 02:57 Hgb 11.60 g/dL (11.27-16.99) 11/02/23 02:57 Hct 35.3 % (36-47) L 11/02/23 02:57 MCV 96.2 fl (85-98) 11/02/23 02:57 MCH 31.6 pg (27-33) 11/02/23 02:57 MCHC 32.9 g/dL (30-55) 11/02/23 02:57 RDW 14.5 % (12.1-15.1) 11/02/23 02:57 Plt Count 143 10^3/cmm (157-399) L 11/02/23 02:57 MPV 10.1 fL (7.4-10.4) 11/02/23 02:57 Neut % (Auto) 75.4 % 11/02/23 02:57 Lymph % (Auto) 18.5 % 11/02/23 02:57 [place] % (Auto) 5.7 % 11/02/23 02:57 Eos % (Auto) 0.0 % 11/02/23 02:57 Baso % (Auto) 0.1 % 11/02/23 02:57 Neut # (Auto) 5.71 10^3/uL (1.8-7.7) 11/02/23 02:57 Lymph # (Auto) 1.4 10^3/uL (0.8-4.8) 11/02/23 02:57 [place] # (Auto) 0.4 10^3/uL (0.2-0.9) 11/02/23 02:57 Eos # (Auto) 0.0 10^3/uL (0.0-0.8) 11/02/23 02:57 Baso # (Auto) 0.0 10^3/uL (0.0-0.1) 11/02/23 02:57 Nucleated RBC % (auto) 0 % 11/02/23 02:57 Nucleated RBCs # 0.0 /100WBC 11/02/23 02:57 Sodium 143 mmol/L (136-145) 11/02/23 02:57 Potassium 4.1 mmol/L (3.5-5.1) 11/02/23 02:57 Chloride 108 mmol/L (98-107) H 11/02/23 02:57 Carbon Dioxide 19 mmol/L (22-29) L 11/02/23 02:57 Anion Gap 20.1 (5-19) H 11/02/23 02:57 BUN 9 mg/dL (6-20) 11/02/23 02:57 Creatinine 0.5 mg/dL (0.5-0.9) 11/02/23 02:57 GFR Calculation 135.3 mL/min (90-130) H 11/02/23 02:57 Glucose 120 mg/dL (65-115) H 11/02/23 02:57 Calculated Osmolality 296 mOsm/kg (285-295) H 11/02/23 02:57 Calcium 8.8 mg/dL (8.5-10.5) 11/02/23 02:57 Total Bilirubin 0.7 mg/dL (0.15-1.2) 11/02/23 02:57 AST 59 U/L (0-32) H 11/02/23 02:57 ALT 39 U/L (0-33) H 11/02/23 02:57 Alkaline Phosphatase 58 U/L (35-105) 11/02/23 02:57 Total Protein 6.5 g/dL (6.6-8.7) L 11/02/23 02:57 Albumin 3.9 g/dL (3.5-5.2) 11/02/23 02:57 Globulin 2.6 g/dL (1.3-4.6) 11/02/23 02:57 HCG, Qual Negative (Negative) 11/02/23 05:55 Urine Color Yellow (Yellow) 11/02/23 05:55 Urine Appearance Sl hazy (CLEAR) A 11/02/23 05:55 Urine pH 5 (5-7) 11/02/23 05:55 Ur Specific [place] 1.030 (1.005-1.030) 11/02/23 05:55 Urine Protein 1+ (Negative) H 11/02/23 05:55 Urine Glucose (UA) Norm (Normal) 11/02/23 05:55 Urine Ketones 2+ (Negative) H 11/02/23 05:55 Urine Blood Neg (Negative) 11/02/23 05:55 Urine Nitrate Negative (Negative) 11/02/23 05:55 Urine Bilirubin 1+ (Negative) H 11/02/23 05:55 Urine Urobilinogen 1 mg/dL (Negative) H 11/02/23 05:55 Ur Leukocyte Esterase Trace (Negative) H 11/02/23 05:55 Urine RBC 0-4 /hpf (0-2) H 11/02/23 05:55 Urine WBC 0-4 /hpf (0-5) H 11/02/23 05:55 Ur Squamous Epith Cells 0-4 /hpf (0-5) H 11/02/23 05:55 Calcium Oxalate Crystal 0-4 /hpf H 11/02/23 05:55 Amorphous Sediment Not Reportable 11/02/23 05:55 Urine Bacteria 1+ /hpf (NONE) H 11/02/23 05:55 Urine Mucus 3+ /hpf 11/02/23 05:55 Salicylates < 0.3 mg/dL (3-10) L 11/02/23 02:57 Urine Opiates Screen Negative ng/mL (Negative) 11/02/23 05:55 Acetaminophen < 5.0 ug/mL (10-30) L 11/02/23 02:57 Ur Barbiturates Screen Negative ng/mL (Negative) 11/02/23 05:55 Ur Phencyclidine Scrn Negative ng/mL (Negative) 11/02/23 05:55 Ur Amphetamines Screen Positive ng/mL (Negative) H 11/02/23 05:55 U Benzodiazepines Scrn Positive ng/mL (Negative) H 11/02/23 05:55 Urine Cocaine Screen Negative ng/mL (Negative) 11/02/23 05:55 U Marijuana (THC) Screen Positive ng/mL (Negative) H 11/02/23 05:55 Ethyl Alcohol < 10 mg/dL (0-10) 11/02/23 02:57 All radiology interpretation(s) finalized by discharge Discharge Plan Discharge Patient Disposition: Home Clinical Impression: Methamphetamine use Condition: Stable Prescriptions: No Action imiquimod [Aldara] 5 % cream in packet 1 applic topical .at bedtime M-F Qty: 12 0RF spinosad [Natroba] 0.9 % suspension 30 ml topical Q7D Qty: 240 0RF Rx Instructions: apply enough to thoroughly wet hair; shampoo in; leave on for 10 mins ; rinse completely hydroxyzine pamoate 25 mg capsule 25 mg PO BID Qty: 60 2RF gabapentin 800 mg tablet 800 mg PO TID Qty: 90 2RF duloxetine [Cymbalta] 20 mg capsule,delayed release(DR/EC) 20 mg PO BID Qty: 60 2RF nicotine [Nicoderm CQ] 21 mg/24 hr patch 24 hour 1 patch transdermal DAILY Qty: 28 0RF medroxyprogesterone [Depo-Provera] 150 mg/mL syringe 150 mg IM .every 12 weeks Qty: 1 0RF Discharge Orders: Discharge ED (Routine); Ordered 11/02/23 Ordered By: Bennett Foster Referrals: Honorio Solares FNP-C [Primary Care Provider] - Discharge Diet: Usual diet Discharge Activity: Increase activity as tolerated Patient Instructions: Methamphetamine Abuse, Methamphetamine Use Disorder (ED), Opioid Safety, Pain Management Activity Restrictions/Additional Instructions: Thank you for choosing [facility] for your healthcare needs today. Please realize this is an emergency room and that we are providing you with a medical screening exam and this may not be complete and all inclusive of all the testing and or work up that you may need to determine your ailment or severity of your illness. It is very important that you follow up as instructed or that you return to the Emergency Department should you have concerns or if your condition changes or worsens in any way. Refrain from the use of methamphetamines Sign Out Sign Out Data: Patient Sign Out occurred on 11/02/23 at 05:41. Patient's care was discussed, and care was transferred from Yogesh Rose DO to Bennett Foster DO. Coding Level of Care Code ED General Repair Mechanic for Chg Fwd Documented by User: Bennett Foster DO 11/09/23 08:44 HPI - Altered Mental Status General: Chief Complaint: Overdose Stated Complaint: OD Time Seen by Provider: 11/02/23 05:41 [facility] ED PFS: Medical History External hemorrhoid Insomnia Gastric reflux Radiculopathy, lumbosacral region left more than right Borderline personality disorder Cannabis dependence with current use Alcohol dependence Amphetamine addiction Chronic post-traumatic stress disorder Surgical History History of 4 times Family History Other COPD (chronic obstructive pulmonary disease) with emphysema Denies family history of Bleeding disorder Social History Smoking and tobacco/nicotine status: current every day tobacco/nicotine user cigarettes Packs smoked per day: 0.5 Second hand smoke exposure: Yes Alcohol intake: unknown Substance/Drug Use: former Date of last use: 2017 documented hx of iv drug use Adopted: No Caregiver/support person: No Lives independently: Yes Household members: family Housing: House Marital status: Legally Number of children: 4 service: No Current occupational status: disabled Do you think of yourself as: Straight/Heterosexual Current gender identity: Female Course Vital Signs: Vital signs: Vital Signs Temperature 99.3 F 11/02/23 02:32 Pulse Rate 88 11/02/23 07:00 Respiratory Rate 16 11/02/23 07:00 Blood Pressure 102/70 11/02/23 07:00 Pulse Oximetry 100 11/02/23 07:00 Oxygen Delivery Me thod Room Air 11/02/23 07:00 MDM - Altered Mental Status Medical Decision Making Patient was given 20 mg of Geodon because she is unable or unwilling to stay in her bed as she kept crawling out of bed acting out due to the suspected methamphetamine use. Patient was worked up with a normal psychiatric fashion. Anticipate patient be discharged when she wakes up and meth is cleared from her system. Patient is not suicidal or homicidal Care assumed at change of shift. Patient more awake and alert admits to having used methamphetamines denies any suicidal homicidal ideation. Discharged home encouraged to abstain from methamphetamines Lab Data 11/02/23 02:57 11/02/23 02:57 Laboratory Results WBC 7.57 10^3/uL (3.29-11.43) 11/02/23 02:57 RBC 3.67 10^6/uL (3.85-5.65) L 11/02/23 02:57 Hgb 11.60 g/dL (11.27-16.99) 11/02/23 02:57 Hct 35.3 % (36-47) L 11/02/23 02:57 MCV 96.2 fl (85-98) 11/02/23 02:57 MCH 31.6 pg (27-33) 11/02/23 02:57 MCHC 32.9 g/dL (30-55) 11/02/23 02:57 RDW 14.5 % (12.1-15.1) 11/02/23 02:57 Plt Count 143 10^3/cmm (157-399) L 11/02/23 02:57 MPV 10.1 fL (7.4-10.4) 11/02/23 02:57 Neut % (Auto) 75.4 % 11/02/23 02:57 Lymph % (Auto) 18.5 % 11/02/23 02:57 [place] % (Auto) 5.7 % 11/02/23 02:57 Eos % (Auto) 0.0 % 11/02/23 02:57 Baso % (Auto) 0.1 % 11/02/23 02:57 Neut # (Auto) 5.71 10^3/uL (1.8-7.7) 11/02/23 02:57 Lymph # (Auto) 1.4 10^3/uL (0.8-4.8) 11/02/23 02:57 [place] # (Auto) 0.4 10^3/uL (0.2-0.9) 11/02/23 02:57 Eos # (Auto) 0.0 10^3/uL (0.0-0.8) 11/02/23 02:57 Baso # (Auto) 0.0 10^3/uL (0.0-0.1) 11/02/23 02:57 Nucleated RBC % (auto) 0 % 11/02/23 02:57 Nucleated RBCs # 0.0 /100WBC 11/02/23 02:57 Sodium 143 mmol/L (136-145) 11/02/23 02:57 Potassium 4.1 mmol/L (3.5-5.1) 11/02/23 02:57 Chloride 108 mmol/L (98-107) H 11/02/23 02:57 Carbon Dioxide 19 mmol/L (22-29) L 11/02/23 02:57 Anion Gap 20.1 (5-19) H 11/02/23 02:57 BUN 9 mg/dL (6-20) 11/02/23 02:57 Creatinine 0.5 mg/dL (0.5-0.9) 11/02/23 02:57 GFR Calculation 135.3 mL/min (90-130) H 11/02/23 02:57 Glucose 120 mg/dL (65-115) H 11/02/23 02:57 Calculated Osmolality 296 mOsm/kg (285-295) H 11/02/23 02:57 Calcium 8.8 mg/dL (8.5-10.5) 11/02/23 02:57 Total Bilirubin 0.7 mg/dL (0.15-1.2) 11/02/23 02:57 AST 59 U/L (0-32) H 11/02/23 02:57 ALT 39 U/L (0-33) H 11/02/23 02:57 Alkaline Phosphatase 58 U/L (35-105) 11/02/23 02:57 Total Protein 6.5 g/dL (6.6-8.7) L 11/02/23 02:57 Albumin 3.9 g/dL (3.5-5.2) 11/02/23 02:57 Globulin 2.6 g/dL (1.3-4.6) 11/02/23 02:57 HCG, Qual Negative (Negative) 11/02/23 05:55 Urine Color Yellow (Yellow) 11/02/23 05:55 Urine Appearance Sl hazy (CLEAR) A 11/02/23 05:55 Urine pH 5 (5-7) 11/02/23 05:55 Ur Specific [place] 1.030 (1.005-1.030) 11/02/23 05:55 Urine Protein 1+ (Negative) H 11/02/23 05:55 Urine Glucose (UA) Norm (Normal) 11/02/23 05:55 Urine Ketones 2+ (Negative) H 11/02/23 05:55 Urine Blood Neg (Negative) 11/02/23 05:55 Urine Nitrate Negative (Negative) 11/02/23 05:55 Urine Bilirubin 1+ (Negative) H 11/02/23 05:55 Urine Urobilinogen 1 mg/dL (Negative) H 11/02/23 05:55 Ur Leukocyte Esterase Trace (Negative) H 11/02/23 05:55 Urine RBC 0-4 /hpf (0-2) H 11/02/23 05:55 Urine WBC 0-4 /hpf (0-5) H 11/02/23 05:55 Ur Squamous Epith Cells 0-4 /hpf (0-5) H 11/02/23 05:55 Calcium Oxalate Crystal 0-4 /hpf H 11/02/23 05:55 Amorphous Sediment Not Reportable 11/02/23 05:55 Urine Bacteria 1+ /hpf (NONE) H 11/02/23 05:55 Urine Mucus 3+ /hpf 11/02/23 05:55 Salicylates < 0.3 mg/dL (3-10) L 11/02/23 02:57 Urine Opiates Screen Negative ng/mL (Negative) 11/02/23 05:55 Acetaminophen < 5.0 ug/mL (10-30) L 11/02/23 02:57 Ur Barbiturates Screen Negative ng/mL (Negative) 11/02/23 05:55 Ur Phencyclidine Scrn Negative ng/mL (Negative) 11/02/23 05:55 Ur Amphetamines Screen Positive ng/mL (Negative) H 11/02/23 05:55 U Benzodiazepines Scrn Positive ng/mL (Negative) H 11/02/23 05:55 Urine Cocaine Screen Negative ng/mL (Negative) 11/02/23 05:55 U Marijuana (THC) Screen Positive ng/mL (Negative) H 11/02/23 05:55 Ethyl Alcohol < 10 mg/dL (0-10) 11/02/23 02:57 Discharge Plan Discharge Patient Disposition: Home Clinical Impression: Methamphetamine use Condition: Stable Prescriptions: No Action imiquimod [Aldara] 5 % cream in packet 1 applic topical .at bedtime M-F Qty: 12 0RF spinosad [Natroba] 0.9 % suspension 30 ml topical Q7D Qty: 240 0RF Rx Instructions: apply enough to thoroughly wet hair; shampoo in; leave on for 10 mins ; rinse completely hydroxyzine pamoate 25 mg capsule 25 mg PO BID Qty: 60 2RF gabapentin 800 mg tablet 800 mg PO TID Qty: 90 2RF duloxetine [Cymbalta] 20 mg capsule,delayed release(DR/EC) 20 mg PO BID Qty: 60 2RF nicotine [Nicoderm CQ] 21 mg/24 hr patch 24 hour 1 patch transdermal DAILY Qty: 28 0RF medroxyprogesterone [Depo-Provera] 150 mg/mL syringe 150 mg IM .every 12 weeks Qty: 1 0RF Discharge Orders: Discharge ED (Routine); Ordered 11/02/23 Ordered By: Bennett Foster Referrals: Honorio Solares, SORTING GRAPPLE OPERATOR-C [Primary Care Provider] - Discharge Diet: Usual diet Discharge Activity: Increase activity as tolerated Patient Instructions: Methamphetamine Abuse, Methamphetamine Use Disorder (ED), Opioid Safety, Pain Management Activity Restrictions/Additional Instructions: Thank you for choosing [facility] for your healthcare needs today. Please realize this is an emergency room and that we are providing you with a medical screening exam and this may not be complete and all inclusive of all the testing and or work up that you may need to determine your ailment or severity of your illness. It is very important that you follow up as instructed or that you return to the Emergency Department should you have concerns or if your condition changes or worsens in any way. Refrain from the use of methamphetamines Sign Out Sign Out Data: Patient Sign Out occurred on 11/02/23 at 05:41. Patient's care was discussed, and care was transferred from Yogesh Rose DO to Bennett Foster DO. Coding Level of Care Code ED General Repair Mechanic for Blanca Coffman
[2023-11-02 02:32] VITALS: BP 136/64; PULSE 136; RESP 20; TEMP 37.4; O2SAT 97
[2023-11-02] MEDS: water for injection-sterile 10 ML (02:49)
[2023-11-02] MEDS: ziprasidone 20 mg/mL SDV IM (02:49)
--- NOTE | 2023-11-02 02:53 | PC.NURSE ---
pt is moving nonstop. pt is continually talking but it is hard to decipher what she is talking about. pt does state that she has not slept in days. pt has walked from the ems cot to her bed and from the bed to the stretcher with minimal assistance.
[2023-11-02 03:03] LABS: Basophils % 0.1 %; Hematocrit 35.3 % (36-47); Lymphocytes # 1.4 10^3/uL (0.8-4.8); Lymphocytes % 18.5 %; Mean Corpuscular HGB Conc 32.9 g/dL (30-55); Mean Corpuscular Hemoglobin 31.6 pg (27-33); Mean Corpuscular Volume 96.2 fl (85-98); Mean Platelet Volume 10.1 fL (7.4-10.4); Monocytes # 0.4 10^3/uL (0.2-0.9); Monocytes % 5.7 %; Neutrophils # 5.71 10^3/uL (1.8-7.7); Neutrophils % 75.4 %; Nucleated Red Blood Cells % 0 %; Platelet Count 143 10^3/cmm (157-399); Red Blood Count 3.67 10^6/uL (3.85-5.65); Red Cell Distribution Width 14.5 % (12.1-15.1); White Blood Count 7.57 10^3/uL (3.29-11.43)
[2023-11-02 03:23] LABS: Alanine Aminotransferase 39 U/L (0-33); Albumin Level 3.9 g/dL (3.5-5.2); Alkaline Phosphatase 58 U/L (35-105); Anion Gap 20.1 (5-19); Aspartate Amino Transferase 59 U/L (0-32); Blood Urea Nitrogen 9 mg/dL (6-20); Calcium 8.8 mg/dL (8.5-10.5); Carbon Dioxide 19 mmol/L (22-29); Chloride 108 mmol/L (98-107); Creatinine Clr Calc Pharmacy 120.6994; Globulin 2.6 g/dL (1.3-4.6); Glomerular Filtration Rate 135.3 mL/min (90-130); Glucose 120 mg/dL (65-115); Osmolality Calculated 296 mOsm/kg (285-295); Potassium 4.1 mmol/L (3.5-5.1); Sodium 143 mmol/L (136-145); Total Bilirubin 0.7 mg/dL (0.15-1.2); Total Protein 6.5 g/dL (6.6-8.7)
[2023-11-02 03:24] LABS: Acetaminophen < 5.0 ug/mL (10-30); Alcohol Level < 10 mg/dL (0-10); Salicylate < 0.3 mg/dL (3-10)
[2023-11-02 03:47] VITALS: BP 126/64; PULSE 99; RESP 16; O2SAT 100
[2023-11-02 05:44] VITALS: BP 128/77; PULSE 97; RESP 16; O2SAT 97
[2023-11-02] MEDS: sodium chloride 0.9% 1,000 ML 999 ML IV (06:03)
[2023-11-02 06:10] VITALS: BP 124/89; PULSE 87; RESP 16; O2SAT 100
[2023-11-02 06:12] LABS: Add Urine Microscopic? YES; Bilirubin Urine 1+ (Negative); Blood Urine Neg (Negative); Glucose Urine UA Norm (Normal); Ketones Urine 2+ (Negative); Leukocyte Esterase Urine Trace (Negative); Nitrate Urine Negative (Negative); Protein Urine 1+ (Negative); Urine Appearance SL Hazy (CLEAR); Urine Color Yellow (Yellow); Urobilinogen Urine 1 mg/dL (Negative); pH Urine 5 (5-7)
[2023-11-02 06:13] LABS: Add Urine Culture? No; Amphetamines Screen Urine Positive (Negative); Bacteria Urine 1+ /hpf; Barbiturates Screen Urine Negative (Negative); Benzodiazepines Screen Urine Positive (Negative); Calcium Oxalate Crystals Urine 0-4 /hpf; Cocaine Screen Urine Negative (Negative); HCG Qualitative Urine. Negative (Negative); Mucus Urine 3+ /hpf; Opiate Screen Urine Negative (Negative); PCP Screen Urine Negative (Negative); RBC Urine 0-4 /hpf (0-2); Squamous Epithelial Cell Urine 0-4 /hpf (0-5); THC Screen Urine Positive (Negative); WBC Urine 0-4 /hpf (0-5)
[2023-11-02 07:00] VITALS: BP 102/70; PULSE 88; RESP 16; O2SAT 100
== END 2023-11-02 10:02 | disposition home or self-care (01) ==
PROVIDERS: Emergency Medicine; Emergency Provider Family Medicine; PCP Nurse Practitioner
DX: F15.90 Other stimulant use, unspecified, uncomplicated (principal); F17.210 Nicotine dependence, cigarettes, uncomplicated
CPT/HCPCS: 36415; 51701; 80053; 80306; 80307; 81001; 81025; 85025; 96372; 99284; J3486; J7030

== ENCOUNTER 2024-04-27 18:32 | Emergency (ER) | payer MEDICAID, SELFPAY ==
--- NOTE | 2024-04-27 19:10 | ED_ITS ---
HPI - Skin/Abscess/Foreign Bdy General: Chief complaint: Skin/Abscess/Foreign Body Stated complaint: back abcess Time Seen by Provider: 04/27/24 18:33 History of Present Illness: Patient with abscess on buttock and low back x 3 days. No fever. No trauma. Related Data Previous Rx's Medication Instructions Recorded imiquimod 5 % topical cream packet 1 applic topical .at bedtime M-F 01/15/22 (Aldara) #12 ea spinosad 0.9 % topical suspension 30 ml topical Q7D 2 doses #240 mL 01/20/23 (Natroba) duloxetine 20 mg capsule,delayed 20 mg PO BID #60 caps 05/17/23 release (Cymbalta) gabapentin 800 mg tablet 800 mg PO TID #90 tabs 05/17/23 hydroxyzine pamoate 25 mg capsule 25 mg PO BID #60 caps 05/17/23 medroxyprogesterone 150 mg/mL 150 mg IM .every 12 weeks #1 mL 05/17/23 intramuscular syringe (Depo-Provera) nicotine 21 mg/24 hr daily 1 patch transdermal DAILY #28 ea 05/17/23 transdermal patch (Nicoderm CQ) sulfamethoxazole 800 1 tab PO BID 10 days #20 tabs 04/27/24 mg-trimethoprim 160 mg tablet (Bactrim DS) Allergies Allergy/AdvReac Type Severity Reaction Status Date / Time chlorpromazine Allergy Unknown Verified 05/17/23 11:10 [From Thorazine] lurasidone [From Latuda] Allergy Unknown Verified 05/17/23 11:10 [facility] ED PFSH: Medical History External hemorrhoid Insomnia Gastric reflux Radiculopathy, lumbosacral region left more than right Borderline personality disorder Cannabis dependence with current use Alcohol dependence Amphetamine addiction Chronic post-traumatic stress disorder Surgical History History of 4 times Family History Other COPD (chronic obstructive pulmonary disease) with emphysema Denies family history of Bleeding disorder Social History Smoking and tobacco/nicotine status: current every day tobacco/nicotine user cigarettes Packs smoked per day: 0.5 Second hand smoke exposure: Yes Alcohol intake: unknown Substance/Drug Use: former Date of last use: 2017 documented hx of iv drug use Adopted: No Caregiver/support person: No Lives independently: Yes Household members: family Housing: House Marital status: Legally Number of children: 4 service: No Current occupational status: disabled Do you think of yourself as: Straight/Heterosexual Current gender identity: Female Female Reproductive History: Para: 4 Physical Exam Const: COMMON NORMALS: no acute distress, average body habitus, patient orien tianna x3, no limitations, healthy appearing, alert and well nourished Neuro: COMMON NORMALS: patient oriented x3 SENSORIUM/ORIENTATION: Yes alert Skin: NARRATIVE SKIN EXAM: 3 cm abscess noted on the low back. Jus t above the gluteal cleft on the right. Has small amount cellulitis and fluctuance noted. Procedures Abscess I/D Site: back Side (if applicable): right Sedation/analgesia: none Local Anesthetic: lidocaine 1% Amount of anesthesia used (mL): 3 Technique: incised with #11 blade Irrigation: Yes Packing used?: plain Course Vital Signs: Vital signs: Vital Signs Pulse Rate 83 04/27/24 19:34 Respiratory Rate 16 04/27/24 19:34 Blood Pressure 116/71 04/27/24 19:34 MDM - Skin/Abscess/Foreign Bdy Medicial Decision Making Patient with a small abscess noted on the right buttock just above the gluteal cleft. I&D was performed. Patient tolerated well. Skin was cleaned with Betadine and 1% lidocaine without epinephrine was injected into the area. An 11 blade was used to make a 1 cm laceration and the wound was probed with sterile hemostats and then irrigated and then packed with sterile gauze. Patient placed on Bactrim. No radiology studies performed this visit Discharge Plan Discharge Patient Disposition: Home Clinical Impression: Abscess Condition: Stable Prescriptions: New Bactrim DS 800-160 mg tablet 1 tab PO BID 10 Days Qty: 20 0RF No Action imiquimod [Aldara] 5 % cream in packet 1 applic topical .at bedtime M-F Qty: 12 0RF spinosad [Natroba] 0.9 % suspension 30 ml topical Q7D Qty: 240 0RF Rx Instructions: apply enough to thoroughly wet hair; shampoo in; leave on for 10 mins ; rinse completely hydroxyzine pamoate 25 mg capsule 25 mg PO BID Qty: 60 2RF gabapentin 800 mg tablet 800 mg PO TID Qty: 90 2RF duloxetine [Cymbalta] 20 mg capsule,delayed release(DR/EC) 20 mg PO BID Qty: 60 2RF nicotine [Nicoderm CQ] 21 mg/24 hr patch 24 hour 1 patch transdermal DAILY Qty: 28 0RF medroxyprogesterone [Depo-Provera] 150 mg/mL syringe 150 mg IM .every 12 weeks Qty: 1 0RF Discharge Orders: Discharge ED (Routine); Ordered 04/27/24 Ordered By: Melvin Velasquez Referrals: Honorio Solares, STRAP MACHINE OPERATOR AUTOMATIC-C [Primary Care Provider] - Patient Instructions: Opioid Safety, Pain Management Activity Restrictions/Additional Instructions: Remove packing in 2 days Coding Level of Care Code ED Checking Clerk for Blanca Coffman
[2024-04-27] MEDS: lidocaine 1% 10 ML INJ INJECTION (19:12)
[2024-04-27 19:34] VITALS: BP 116/71; PULSE 83; RESP 16
== END 2024-04-27 19:30 | disposition home or self-care (01) ==
PROVIDERS: Emergency Provider Emergency Medicine; PCP Nurse Practitioner
DX: L02.31 Cutaneous abscess of buttock (principal); F17.210 Nicotine dependence, cigarettes, uncomplicated
CPT/HCPCS: 10060; 99283

== ENCOUNTER 2024-12-26 19:06 | Inpatient (IN) | payer MEDICAID, SELFPAY ==
[2024-12-26 19:07] VITALS: BP 132/87; PULSE 100; RESP 18; TEMP 36.6; O2SAT 97; BMI 18.4
--- NOTE | 2024-12-26 19:13 | ECG_ITS ---
[facility]: 2024-12-26 Pat Name: Zoila German Department: Room: Gender: Female Events Specialist: : 1980 Requested By: Qing Rashid Order Number: [id number] Santamaria MD: London Montilla M.D. Measurements Intervals [place] Rate: 71 P: 74 ND: 148 QRS: -10 QRSD: 104 T: 56 QT: 371 QTc: 405 Interpretive Statements SINUS RHYTHM WITH SINUS ARRHYTHMIA INCOMPLETE RIGHT BUNDLE BRANCH BLOCK [90+ ms QRS DURATION, TERMINAL R IN V1/V2, 40+ ms S IN I/aVL/V4/V5/V6] No previous ECG available for comparison Electronically Signed On 01-01-2025 10:17:18 CDT by London Montlila M.D. [email or web address]
--- NOTE | 2024-12-26 19:14 | ED.C_ITS ---
HPI - Psych 2 General: Chief Complaint: Psychiatric Symptoms Stated Complaint: 96 hour hold History of Present Illness: 44-year-old female with history of borde rline personality disorder alcohol abuse amphetamine abuse and psychiatric issues who presents to the emergency room by ambulance send with police on a 96-hour hold. Apparently family report that she has been hitting herself and threatening to hurt other people. Also on multiple occasions she has been masturbating in public. When asked the patient why she was brought here she says to get her anxiety under control. She seems cooperative and willing to come in to the hospital. Related Data Previous Rx's ?Medication ?Instructions ?Recorded imiquimod 5 % topical cream packet 1 applic topical .a t bedtime M-F 01/15/22 (Aldara) #12 ea spinosad 0.9 % topical suspension 30 ml topical Q7D 2 doses #240 mL 01/20/23 (Natroba) duloxetine 20 mg capsule,delayed 20 mg PO BID #60 caps 05/17/23 release (Cymbalta) gabapentin 800 mg tablet 800 mg PO TID #90 tabs 05/17 hydroxyzine pamoate 25 mg capsule 25 mg PO BID #60 cap s 05/17/23 medroxyprogesterone 150 mg/mL 150 mg IM .every 12 week s #1 mL 05/17/23 intramuscular syringe (Depo-Provera) nicotine 21 mg/24 hr daily 1 patch transdermal DAILY # 28 ea 05/17/23 transdermal patch (Nicoderm CQ) Allergies Allergy/AdvReac Type Severity Reaction Status Date / Time chlorpromazine (From Allergy Unknown Verified 12/26/24 19:18 Thorazine) lurasidone (From Latuda) Allergy Unknown Verified 12/26/24 19:18 Review of Systems 2 Narrative: Constitutional symptoms: Negative except as documented in HPI. Skin symptoms: Negative except as documented in HPI. Eye symptoms: Negative except as documented in HPI. ENMT symptoms: Negative except as documented in HPI. Respiratory symptoms: Negative except as documented in HPI. Cardiovascular symptoms: Negative except as documented in HPI. Gastrointestinal symptoms: Negative except as documented in HPI. Genitourinary symptoms: Negative except as documented in HPI. Musculoskeletal symptoms: Negative except as documented in HPI. Neurologic symptoms: Negative except as documented in HPI. Psychiatric symptoms: Negative except as documented in HPI. Endocrine symptoms: Negative except as documented in HPI. PFS ED 2 PFSH: Medical History External hemorrhoid Insomnia Gastric reflux Radiculopathy, lumbosacral region left more than right Borderline personality disorder Cannabis dependence with current use Alcohol dependence Amphetamine addiction Chronic post-traumatic stress disorder Surgical History History of 4 times Family History Other COPD (chronic obstructive pulmonary disease) with emphysema Denies family history of Bleeding disorder Social History Smoking and tobacco/nicotine status: current every day tobacco/nicotine user cigarettes Packs smoked per day: 0.5 Second hand smoke exposure: Yes Alcohol intake: unknown Substance/Drug Use: former Date of last use: 2017 documented hx of iv drug use Adopted: No Caregiver/support person: No Lives independently: Yes Household members: family Housing: House Marital status: Legally Number of children: 4 service: No Current occupational status: disabled Do you think of yourself as: Straight/Heterosexual Current gender identity: Female Female Reproductive History: Para: 4 Physical Exam 2 Narrative: EXAM NARRATIVE: General: Alert, no acute distress. Skin: Warm, dry. Head: Normocephalic, atraumatic. Neck: Supple, trachea midline. Eye: Extraocular movements are intact. Ears, nose, mouth and throat: mucosa moist. Cardiovascular: Regular, Normal peripheral perfusion. Respiratory: Lungs are clear to auscultation, respirations are non-labored, breath sounds are equal, Symmetrical chest wall expansion. Gastrointestinal: Soft, Nontender, Non distended Musculoskeletal: Normal ROM, no deformity. Neurological: Alert and oriented, No focal neurological deficit observed. Psychiatric: Cooperative, odd affect. Currently denies any suicidal ideation. She does report anxiety Course 2 Vital Signs: Vital signs: Vital Signs Temperature 97.9 F 12/26/24 19:07 Pulse Rate 100 12/26/24 19:07 Respiratory Rate 18 12/26/24 19:07 Blood Pressure 132/87 12/26/24 19:07 Pulse Oximetry 97 12/26/24 19:07 Oxygen Delivery Me thod Room Air 12/26/24 19:07 MDM - Psych Medical Decision Making Medical decision making: Differential diagnosis for patient with reported psychosis with plan for psychiatric admission including but not limited to and based on the above HPI, review of systems and physical exam: concerns for infection, alcohol intoxication, cardiac issues or other medical problems prior to psychiatric admission. Orders placed to evaluate differential diagnosis based on the above differential, HPI and physical exam labwork, ekg ordered to evaluate the pathologies and to clear the patient medically prior to psychiatric admission EKG: Time 1952. Rate 71. Normal sinus rhythm, No ST-T changes, no ectopy, normal [place] & QRS intervals, This was reviewed and interpreted by myself the ER physician at 1957 Lab Review: Laboratory results were reviewed and interpreted by myself the emergency room physician. - Medically cleared. - EKG shows no ischemic changes. - Blood alcohol level is negative, as well as salicylate and Tylenol. - Drug screen is positive for amphetamine - No signs of infection, urinalysis clear and white count is not elevated - No anemia. - BUN and creatinine are within normal limits. I reviewed the patient's medical record. Consultation: Spoke with Dr. Borges who is on-call for psychiatry agrees to admission. Assessment and plan: Psychosis Amphetamine abuse Danger to others ? Robby and Serjio in the emergency room to help with her anxiety and psychosis. -Admission to neuropsychiatric unit for continued evaluation and treatment. - All lab work was reviewed and interpreted personally by myself, the ER physician - Evaluation and treatment of this problem were appropriate in the emergency setting Lab Data 12/26/24 19:27 12/26/24 19:27 Laboratory Results WBC 4.77 10^3/uL (3.29-11.43) 12/26/24 19: RBC 4.65 10^6/uL (3.85-5.65) 12/26/24 19:27 Hgb 13.90 g/dL (11.27-16.99) 12/26/24 19: Hct 43.8 % (36-47) 12/26/24 19:27 MCV 94.2 fl (85-98) 12/26/24 19: MCH 29.9 pg (27-33) 12/26/24 19: MCHC 31.7 g/dL (30-55) 12/26/24 19: RDW 12.4 % (12.1-15.1) 12/26/24 19: Plt Count 167 10^3/cmm (157-399) 12/26/24 19: MPV 10.8 fL (7.4-10.4) H 12/26/24 19: Neut % (Auto) 51.1 % 12/26/24 19: Lymph % (Auto) 40.7 % 12/26/24 19: [place] % (Auto) 5.9 % 12/26/24 19: Eos % (Auto) 1.9 % 12/26/24 19: Baso % (Auto) 0.2 % 12/26/24: Neut # (Auto) 2.44 10^3/uL (1.8-7.7) 12/26/24: Lymph # (Auto) 1.9 10^3/uL (0.8-4.8) 12/26/24: [place] # (Auto) 0.3 10^3/uL (0.2-0.9) 12/26/24 19: Eos # (Auto) 0.1 10^3/uL (0.0-0.8) 12/26/24 19: Baso # (Auto) 0.0 10^3/uL (0.0-0.1) 12/26/24: Nucleated RBC % (auto) 0 % 12/26/24: Nucleated RBCs # 0.0 /100WBC 12/26/24 19: Sodium 139 mmol/L (136-145) 12/26/24 19: Potassium 3.9 mmol/L (3.5-5.1) 12/26/24 19: Chloride 103 mmol/L (98-107) 12/26/24 19: Carbon Dioxide 24 mmol/L (22-29) 12/26/24 19: Anion Gap 15.9 (5-19) 12/26/24 19: BUN 18 mg/dL (6-20) 12/26/24 19: Creatinine 0.6 mg/dL (0.5-0.9) 12/26/24 19: GFR Calculation 109.1 mL/min (90-130) 12/26/24: Calculated Osmolality 291 mOsm/kg (285-295) 12/26/24 19:27 Calcium 8.9 mg/dL (8.5-10.5) 12/26/24 19:27 Total Bilirubin 0.4 mg/dL (0.15-1.2) 12/26/24 19:27 Alkaline Phosphatase 61 U/L (35-105) 12/26/24 19:27 Total Protein 7.4 g/dL (6.6-8.7) 12/26/24 19:27 Albumin 4.2 g/dL (3.5-5.2) 12/26/24 19: Globulin 3.2 g/dL (1.3-4.6) 12/26/24 19: TSH 2.47 uIU/mL (0.27-4.20) 12/26/24 19:27 Urine Color Yellow (Yellow) 12/26/24 19:18 Urine Appearance Clear (CLEAR) 12/26/24 19:18 Urine pH 5.5 (5-7) 12/26/24 19:18 Ur Specific [place] 1.023 (1.005-1.030) 12/26/24 19:18 Urine Protein Negative (Negative) 12/26/24 19:18 Urine Glucose (UA) Negative (Normal) 12/26/24 19:18 Urine Ketones Negative (Negative) 12/26/24 19:18 Urine Blood Negative (Negative) 12/26/24 19:18 Urine Nitrate Negative (Negative) 12/26/24 19:18 Urine Bilirubin Negative (Negative) 12/26/24 19:18 Urine Urobilinogen 0.2 mg/dL (Negative) 12/26/24 19:18 Ur Leukocyte Esterase Negative (Negative) 12/26/24 19:18 Urine RBC 0-2 /hpf (0-2) 12/26/24 19:18 Urine WBC 0-5 /hpf (0-5) 12/26/24 19:18 Ur Squamous Epith Cells 0-5 /hpf (0-5) 12/26/24 19:18 Amorphous Sediment Not Reportable 12/26/24 19:18 Urine Bacteria None seen /hpf (NONE) 12/26/24 19:18 Hyaline Casts 0.40 /lpf 12/26/24 19:18 Urine Opiates Screen Negative ng/mL (Negative) 12/26/24 19:18 Ur Barbiturates Screen Negative ng/mL (Negative) 12/26/24 19:18 Ur Phencyclidine Scrn Negative ng/mL (Negative) 12/26/24 19:18 Ur Amphetamines Screen Positive ng/mL (Negative) H 12/26/24 19:18 U Benzodiazepines Scrn Negative ng/mL (Negative) 12/26/24 19:18 Urine Cocaine Screen Negative ng/mL (Negative) 12/26/24 19:18 U Marijuana (THC) Screen Negative ng/mL (Negative) 12/26/24 19:18 No radiology studies performed this visit Discharge Plan Discharge Patient Disposition: Admitted As Inpatient Clinical Impression: Psychosis, Amphetamine addiction Condition: Stable Coding Level of Care Code ED 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
[2024-12-26 19:32] LABS: Basophils % 0.2 %; Eosinophils # 0.1 10^3/uL (0.0-0.8); Eosinophils % 1.9 %; Hematocrit 43.8 % (36-47); Lymphocytes # 1.9 10^3/uL (0.8-4.8); Lymphocytes % 40.7 %; Mean Corpuscular HGB Conc 31.7 g/dL (30-55); Mean Corpuscular Hemoglobin 29.9 pg (27-33); Mean Corpuscular Volume 94.2 fl (85-98); Mean Platelet Volume 10.8 fL (7.4-10.4); Monocytes # 0.3 10^3/uL (0.2-0.9); Monocytes % 5.9 %; Neutrophils # 2.44 10^3/uL (1.8-7.7); Neutrophils % 51.1 %; Nucleated Red Blood Cells % 0 %; Platelet Count 167 10^3/cmm (157-399); Red Blood Count 4.65 10^6/uL (3.85-5.65); Red Cell Distribution Width 12.4 % (12.1-15.1); White Blood Count 4.77 10^3/uL (3.29-11.43)
[2024-12-26 19:40] LABS: Bilirubin Urine Negative (Negative); Blood Urine Negative (Negative); Glucose Urine UA Negative (Normal); Ketones Urine Negative (Negative); Leukocyte Esterase Urine Negative (Negative); Nitrate Urine Negative (Negative); Protein Urine Negative (Negative); Specific Gravity, Urine 1.023 (1.005-1.030); Urine Appearance Clear (CLEAR); Urine Color Yellow (Yellow); Urobilinogen Urine 0.2 mg/dL (Negative); pH Urine 5.5 (5-7)
--- NOTE | 2024-12-26 19:40 | PC.NURSE ---
Pts brother Juanito Hannah called and left his number [phone] if anyone needed to get ahold of him regarding the pt
[2024-12-26 19:46] LABS: Add Urine Microscopic? YES; Amphetamines Screen Urine Positive (Negative); Bacteria Urine None Seen /hpf; Barbiturates Screen Urine Negative (Negative); Benzodiazepines Screen Urine Negative (Negative); Cocaine Screen Urine Negative (Negative); Opiate Screen Urine Negative (Negative); PCP Screen Urine Negative (Negative); RBC Urine 0-2 /hpf (0-2); Squamous Epithelial Cell Urine 0-5 /hpf (0-5); THC Screen Urine Negative (Negative); WBC Urine 0-5 /hpf (0-5)
[2024-12-26 20:03] LABS: Alanine Aminotransferase 98 U/L (0-33); Albumin Level 4.2 g/dL (3.5-5.2); Alkaline Phosphatase 61 U/L (35-105); Anion Gap 15.9 (5-19); Aspartate Amino Transferase 65 U/L (0-32); Blood Urea Nitrogen 18 mg/dL (6-20); Calcium 8.9 mg/dL (8.5-10.5); Carbon Dioxide 24 mmol/L (22-29); Chloride 103 mmol/L (98-107); Creatinine Clr Calc Pharmacy 119.0937; Globulin 3.2 g/dL (1.3-4.6); Glomerular Filtration Rate 109.1 mL/min (90-130); Glucose 120 mg/dL (65-115); Osmolality Calculated 291 mOsm/kg (285-295); Potassium 3.9 mmol/L (3.5-5.1); Salicylate 0.4 mg/dL (3-10); Sodium 139 mmol/L (136-145); Thyroid Stimulating Hormone 2.47 uIU/mL (0.27-4.20); Total Bilirubin 0.4 mg/dL (0.15-1.2); Total Protein 7.4 g/dL (6.6-8.7)
[2024-12-26] MEDS: LORazepam 2 mg/mL INJ 1 mL IM (20:12)
[2024-12-26] MEDS: ziprasidone 20 mg/mL SDV IM (20:12)
[2024-12-26 20:16] LABS: Acetaminophen < 5.0 ug/mL (10-30); Alcohol Level < 10 mg/dL (0-10)
--- NOTE | 2024-12-26 20:45 | PC.NURSE ---
96 Hour Hold Pt served with copy of 96 HH by this RN and security. Pt is groggy and eyes closed, pt pants are pulled down past her buttocks. Pt was awoken and stated her name and fell back asleep. Pt was re-awoken and notified about be placed on a 96 HH. Rights were read to pt, when asked if she had any questions, pt stated can I have something for my nerves? I need something to calm me down. Physician notified.
[2024-12-26 21:41] VITALS: BP 127/62; PULSE 89; RESP 16; O2SAT 94
--- NOTE | 2024-12-26 22:35 | PC.NURSE ---
vs not collected resp 18 charge notified
--- NOTE | 2024-12-27 00:05 | PC.ADMIT ---
[address] Admission Note: The patient,Zoila German,44 y/o, was given written information regarding hospital policies, unit procedures and contact persons. Patient's smoking status: current every day smoker. Vital Signs - 8 hr 12/26/24 19:07 12/26/24 21:41 Temperature 97.9 F Pulse Rate 100 89 Respiratory Rate 18 16 Blood Pressure 132/87 127/62 Pulse Oximetry 97 94 Oxygen Delivery Method Room Air Pt. was brought in to the ER by police. Pt. placed on a 96 hr hold. Family reported she was hitting herself and threatening to hit others, and masturbates in public. When security brought pt. to the unit pt. was leaned over with her head between her knees and had her eyes closed. Pt. was a 2 assist to get to her room where staff had to help her get undressed and then redressed d/t pt. had been medicated in the ER. In report from the ER nurse reported that pt.'s family said she would take off her diaper. Pt. would not wake up to answer any assessment questions so it is unknown if pt. is continent or incontinent at this time. The ER nurse giving report also said the pt. lived on a family compound. Pt.'s labs showed pt. was positive for meth.
[2024-12-27 05:56] VITALS: BP 103/68; PULSE 60; RESP 16; O2SAT 100
[2024-12-27] MEDS: nicotine 4 mg lozenge MUCOUS MEM (08:42)
[2024-12-27] MEDS: hyDROXYzine 25 mg Capsule 50 MG PO ×2 (08:42→21:11)
--- NOTE | 2024-12-27 08:57 | PC.OT ---
OT EVALUATION ATTEMPTED. PATIENT IS SLEEPING SOUNDLY AND DOES NOT AWAKEN
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
[2024-12-27 14:00] VITALS: BP 98/63; PULSE 81; RESP 16; TEMP 36.6; O2SAT 96
[2024-12-27 20:31] VITALS: BP 98/60; PULSE 86; RESP 16; TEMP 37; O2SAT 100
[2024-12-27] MEDS: trazodone 50 mg Tablet PO (21:11)
[2024-12-28 06:00] VITALS: BP 107/73; PULSE 80; RESP 16; TEMP 37.3; O2SAT 100
--- NOTE | 2024-12-28 06:40 | PC.NURSE ---
Pt. fingers have edema and pt. had a green rubber ring on it was placed in the safe in a plastic bag with her event specialist product demonstrator it. Pt. did not want to remove her ring.
--- NOTE | 2024-12-28 09:45 | PC.NURSE ---
RESTING IN BED. EVASIVE WITH ASSESSMENT. DENIES PAIN. DENIES SI/HI AND AVH AT THIS TIME. DEPRESSED MOOD NOTED. ANXIOUS AT TIMES. WITHDRAWN AND ISOLATES TO ROOM. DOES MAKE STATEMENTS AT TIMES THAT DO NOT MAKE SENSE. SHE WILL THEN CORRECT HERSELF. SUPPORT VOICED.
[2024-12-28 14:00] VITALS: BP 101/68; PULSE 70; RESP 16; TEMP 36.9; O2SAT 94
[2024-12-28] MEDS: nicotine 4 mg lozenge MUCOUS MEM (14:46)
--- NOTE | 2024-12-28 17:29 | P.NPUPN_ITS ---
Subjective NPU 2 Subjective: Patient presented today reporting that things are okay. She remained mostly in bed and under the blankets per staff reports and direct observation. She continued to have limited vocalization but was slightly more responsive to engagement but still with limited history offered. She was resistant to a discussion about restarting medication and addressing any psychosis or other concerns related to her presentation. Mental Status Exam 2 MSE Comments: This is a slender versus cachectic white female in hospital scrubs with poor grooming and eye contact. Poor dentition/absent teeth no abnormal movements except for significant psychomotor retardation. Cooperative with exam in mild to moderate distress. Speech was significantly decreased rate and volume and limited productivity. Mood described as tired, affect congruent and subdued versus lethargic. Thought process organized. Thought content: Patient denied any suicidal or homicidal ideation, though there was reports of delusions but patient was quite guarded, she endorses auditory hallucinations and occasional visual hallucinations. Attention and concentration appeared limited and memory appeared unreliable but none were formally tested. She is alert and oriented x person and place. Insight, judgment and impulse control were impaired. Vitals/I&O/Wt Last Vital Signs Temp 98.4 F 12/28/24 14:00 Pulse 76 12/28/24 20:22 Resp 16 12/28/24 20:22 BP 107/66 12/28/24 20:22 Pulse Ox 94 12/28/24 20:22 O2 Del Method Room Air 12/28/24 06:00 Data NPU 12/26/24 19:27 12/26/24 19:27 A&P Assessment and plan (1) Adjustment disorder: (2) Cluster B personality disorder: (3) Chronic post-traumatic stress disorder: (4) Amphetamine addiction: (5) Psychosis: (6) Anxiety and depression: (7) Withdrawal from methamphetamine: (8) Methamphetamine intoxication: Plan This is a 34-year-old white female known from past admissions with reported extended history of trauma, intellectual disability, significant addiction and 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 Consider restarting medication. 2. Evaluated against the backdrop of the 96-hour hold. 3. Obtain collateral information. 4. Encourage individual, group and milieu therapy. 5. Continue every 15 minute checks for safety. 6. Encourage sober living treatment after discharge at at the highest level of care to which she is willing to commit. PDMP PDMP Reviewed: Not Reviewed Involuntary Hold Information 2 Hold Status: Legal Status: 96 Hour Hold Date/Time Hold Expires: 01/01/25@1918 96 Hour Hold: 96 Hour Involuntary Admission: No Attestations NPU 2 Medical Necessity Statement*: Inpatient hospitalization is medically necessary and the clinically appropriate intervention at this time. We will initiate medications and titrate to effect. Likely length of stay 5-7 days. Coding Level of Care Code Acute Code for [facility] Fwd Diagnoses Adjustment disorder F43.20 Cluster B personality disorder F60.89 Chronic post-traumatic stress disorder F43.12 Amphetamine addiction F15.20 Psychosis F29 Anxiety and depression F41.9; F32.9 Withdrawal from methamphetamine F15.93 Methamphetamine intoxication F15.929
[2024-12-28 20:22] VITALS: BP 107/66; PULSE 76; RESP 16; O2SAT 94
[2024-12-28] MEDS: hyDROXYzine 25 mg Capsule 50 MG PO (21:57)
[2024-12-28] MEDS: trazodone 50 mg Tablet PO (21:59)
[2024-12-29 06:00] VITALS: BP 103/68; PULSE 74; RESP 16; TEMP 36.8; O2SAT 95
--- NOTE | 2024-12-29 08:35 | PC.NURSE ---
SITTING ON BED STARRING AT CEILING. PT IS EVASIVE WITH ASSESSMENT AND CONTINUES TO MAKE INAPPROPRIATE STATEMENTS THAT DO NO MAKE SENSE. DENIES SI/HI AND AVH AT THIS TIME. SPEECH IS DELAYED. AFFECT IS FLAT AND DEPRESSED MOOD IS NOTED. WITHDRAWN AND ISOLATES TO ROOM. PT REQUESTS SOMETHING TO DECREASE ANXIETY. RN TO GIVE ZYDIS 5 MG ORDERED BUT PT HAS NOT COME UP TO TAKE IT YET. SUPPORT VOICED.
[2024-12-29] MEDS: nicotine 4 mg lozenge MUCOUS MEM ×3 (09:57→16:58)
[2024-12-29] MEDS: OLANZapine 5 mg ODT PO (09:57)
--- NOTE | 2024-12-29 11:13 | PC.NURSE ---
Confusion Patient appears confused, wandering around the unit with her eyes wide and her hands clasped together at her chest. When this nurse asked patient if she knew where she is, patient replied after a short pause the fridge. This nurse offered the patient a nicotine lozenge. patient was agreeable. After administering this, patient spit it out into the hallway. This nurse gathered it up and disposed of it properly.
[2024-12-29 14:00] VITALS: BP 88/52; PULSE 64; RESP 16; O2SAT 98
--- NOTE | 2024-12-29 16:35 | P.NPUPN_ITS ---
Subjective NPU 2 Subjective: Patient presented today reporting that she is okay. She continues to be quite isolative and reclusive per staff reports and direct observation. At 1 point she was observed asking for a carton of milk and once it was given to her she stated it is strangely. Eventually she picked it up and walked away and a couple of moments later while still in view she turned around and came back and put the milk where it was before and once again looked at it strangely and laughed and shook her head and turned away. She continues to deny wanting to restart medications. She continues to appear confused. Mental Status Exam 2 MSE Comments: This is a slender versus cachectic white female in hospital scrubs with poor grooming and eye contact. Poor dentition/absent teeth no abnormal movements except for significant psychomotor retardation. Cooperative with exam in mild to moderate distress. Speech was significantly decreased rate and volume and limited productivity. Mood described as tired, affect congruent and subdued versus lethargic. Thought process organized. Thought content: Patient denied any suicidal or homicidal ideation, though there was reports of delusions but patient was quite guarded, she endorses auditory hallucinations and occasional visual hallucinations. Attention and concentration appeared limited and memory appeared unreliable but none were formally tested. She is alert and oriented x person and place. Insight, judgment and impulse control were impaired. Vitals/I&O/Wt Last Vital Signs Temp 97.5 F L 12/29/24 19:53 Pulse 76 12/29/24 19:53 Resp 16 12/29/24 19:53 BP 95/60 12/29/24 19:53 Pulse Ox 97 12/29/24 19:53 O2 Del Method Room Air 12/29/24 06:00 12/29/24 12/29/24 14:59 22:59 Intake Total 0 / 0 Balance 0 / 0 Data NPU 12/26/24 19:27 12/26/24 19:27 A&P Assessment and plan (1) Adjustment disorder: (2) Cluster B personality disorder: (3) Chronic post-traumatic stress disorder: (4) Amphetamine addiction: (5) Psychosis: (6) Anxiety and depression: (7) Withdrawal from methamphetamine: (8) Methamphetamine intoxication: Plan This is a 34-year-old white female known from past admissions with reported extended history of trauma, intellectual disability, significant addiction and 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 Consider restarting medication. Recommending antipsychotic but she is currently refusing. 2. Evaluated against the backdrop of the 96-hour hold. 3. Obtain collateral information. 4. Encourage individual, group and milieu therapy. 5. Continue every 15 minute checks for safety. 6. Encourage sober living treatment after discharge at at the highest level of care to which she is willing to commit. PDMP PDMP Reviewed: Not Reviewed Involuntary Hold Information 2 Hold Status: Legal Status: 96 Hour Hold Date/Time Hold Expires: 01/01/25@1918 96 Hour Hold: 96 Hour Involuntary Admission: No Attestations NPU 2 Medical Necessity Statement*: Inpatient hospitalization is medically necessary and the clinically appropriate intervention at this time. We will initiate medications and titrate to effect. Likely length of stay 5-7 days. Coding Level of Care Code Acute Code for g Fwd Diagnoses Adjustment disorder F43.20 Cluster B personality disorder F60.89 Chronic post-traumatic stress disorder F43.12 Amphetamine addiction F15.20 Psychosis F29 Anxiety and depression F41.9; F32.9 Withdrawal from methamphetamine F15.93 Methamphetamine intoxication F15.929
[2024-12-29] MEDS: hyDROXYzine 25 mg Capsule 50 MG PO (16:58)
[2024-12-29 19:53] VITALS: BP 95/60; PULSE 76; RESP 16; TEMP 36.4; O2SAT 97
[2024-12-30 06:00] VITALS: BP 94/63; PULSE 77; RESP 16; O2SAT 98
[2024-12-30] MEDS: OLANZapine 5 mg ODT PO (07:29)
[2024-12-30] MEDS: nicotine 4 mg lozenge MUCOUS MEM (07:29)
--- NOTE | 2024-12-30 07:31 | PC.NURSE ---
zyprexa Zyprexa for agitation. Patient at window, wringing her hands, appears anxious, requesting medication.
[2024-12-30] MEDS: haloperidol 5 mg Tablet PO (10:08)
--- NOTE | 2024-12-30 10:09 | PC.NURSE ---
Haldol Administered haldol 5mg PO to patient for auditory and visual hallucinations. Patient observed talking to the door, etc. At times, patient laughs out loud.
[2024-12-30 14:00] VITALS: BP 94/57; PULSE 80; RESP 16; TEMP 36.9; O2SAT 98
--- NOTE | 2024-12-30 16:43 | P.NPUPN_ITS ---
Subjective NPU 2 Subjective: Patient presented today reporting that things are still bad. She continued to have significant confusion and limited conversation per staff reports and direct observation. She was finally able to talk about her medication and reported not caring about what we did as far as medication. She did not want to take which she took before and so we discussed the risks, benefits and alternatives of a trial of Abilify or Invega and she understood and agreed to proceed as documented in this note. Mental Status Exam 2 MSE Comments: This is a slender versus cachectic white female in hospital scrubs with poor grooming and eye contact. Poor dentition/absent teeth no abnormal movements except for significant psychomotor retardation. Cooperative with exam in mild to moderate distress. Speech was significantly decreased rate and volume and limited productivity. Mood described as tired, affect congruent and subdued versus lethargic. Thought process organized. Thought content: Patient denied any suicidal or homicidal ideation, though there was reports of delusions but patient was quite guarded, she endorses auditory hallucinations and occasional visual hallucinations. Attention and concentration appeared limited and memory appeared unreliable but none were formally tested. She is alert and oriented x person and place. Insight, judgment and impulse control were impaired. Vitals/I&O/Wt Last Vital Signs Temp 98.5 F 12/30/24 14:00 Pulse 80 12/30/24 14:00 Resp 16 12/30/24 14:00 BP 94/57 12/30/24 14:00 Pulse Ox 98 12/30/24 14:00 O2 Del Method Room Air 12/30/24 14:00 12/30/24 12/30/24 12/30/24 06:59 14:59 22:59 Intake Total 0 / 0 Balance 0 / 0 Data NPU 12/26/24 19:27 12/26/24 19:27 A&P Assessment and plan (1) Adjustment disorder: (2) Cluster B personality disorder: (3) Chronic post-traumatic stress disorder: (4) Amphetamine addiction: (5) Psychosis: (6) Anxiety and depression: (7) Withdrawal from methamphetamine: (8) Methamphetamine intoxication: Plan This is a 34-year-old white female known from past admissions with reported extended history of trauma, intellectual disability, significant addiction and 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 Consider restarting medication. Start Invega 6 mg p.o. daily. 2. Evaluated against the backdrop of the 96-hour hold. 3. Obtain collateral information. 4. Encourage individual, group and milieu therapy. 5. Continue every 15 minute checks for safety. 6. Encourage sober living treatment after discharge at at the highest level of care to which she is willing to commit. PDMP PDMP Reviewed: Not Reviewed Involuntary Hold Information 2 Hold Status: Legal Status: 96 Hour Hold Date/Time Hold Expires: 01/01/25@1918 96 Hour Hold: 96 Hour Involuntary Admission: No Attestations NPU 2 Medical Necessity Statement*: Inpatient hospitalization is medically necessary and the clinically appropriate intervention at this time. We will initiate medications and titrate to effect. Likely length of stay 5-7 days. Coding Level of Care Code Acute Code for g Fwd Diagnoses Adjustment disorder F43.20 Cluster B personality disorder F60.89 Chronic post-traumatic stress disorder F43.12 Amphetamine addiction F15.20 Psychosis F29 Anxiety and depression F41.9; F32.9 Withdrawal from methamphetamine F15.93 Methamphetamine intoxication F15.929
[2024-12-30 21:55] VITALS: BP 100/62; PULSE 75; RESP 16; O2SAT 94
[2024-12-31 06:00] VITALS: BP 110/67; PULSE 73; RESP 16; O2SAT 97
[2024-12-31] MEDS: acetaminophen 325 mg Tablet 650 MG PO (08:14)
[2024-12-31 14:00] VITALS: BP 112/78; PULSE 55; RESP 17; TEMP 36.8; O2SAT 98
[2024-12-31] MEDS: paliperidone ER 6 mg Tablet PO (14:58)
[2024-12-31] MEDS: nicotine 4 mg lozenge MUCOUS MEM ×2 (16:21→19:02)
--- NOTE | 2024-12-31 17:22 | P.NPUPN_ITS ---
Subjective NPU 2 Subjective: 44-year-old female with a history of met hamphetamine abuse admitted with bizarre and disorganized behavior under the influence of methamphetamine. Patient had reported that she was feeling better. She had continued to appear somewhat confused. She had been compliant with her Invega. She had been unable to provide a any reason as to why she had come into the hospital. She had reported that she was brought here because others were trying to prevent her from succeeding in the living her best life at home. She was continuing to isolate herself. She reported no thoughts of harming herself or others. The patient had reported that she had been noncompliant with her Invega for at least 1 month. Mental Status Exam 2 MSE Comments: This is a slender versus cachectic white female in hospital scrubs with poor grooming and eye contact. Poor dentition/absent teeth no abnormal movements except for significant psychomotor retardation. Cooperative with exam in mild to moderate distress. Speech was significantly decreased in rate and volume and limited productivity and slurred at times. Mood described as fine. Affect was subdued. Thought process was linear but superficial. Thought content: Patient denied any suicidal or homicidal ideation. She endorsed signficant ideas of reference and paranoia. She endorses auditory hallucinations but denied visual hallucinations. Attention and concentration appeared limited and memory appeared unreliable but none were formally tested. She is alert and oriented x person and place. Insight, judgment and impulse control were impaired. Vitals/I&O/Wt Last Vital Signs Temp 98.3 F 12/31/24 14:00 Pulse 55 L 12/31/24 14:00 Resp 17 12/31/24 14:00 BP 112/78 12/31/24 14:00 Pulse Ox 98 12/31/24 14:00 O2 Del Method Room Air 12/31/24 06:00 Weight last 48 hrs Weight 64.501 kg Data NPU 12/26/24 19:27 12/26/24 19:27 A&P Assessment and plan (1) Adjustment disorder: (2) Cluster B personality disorder: (3) Chronic post-traumatic stress disorder: (4) Amphetamine addiction: (5) Psychosis: (6) Anxiety and depression: (7) Withdrawal from methamphetamine: (8) Methamphetamine intoxication: Plan This is a 34-year-old white female known from past admissions with reported extended history of trauma, intellectual disability, significant addiction and 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 Increase invega 9mg daily. 2. Evaluated against the backdrop of the 96-hour hold. 3. Obtain collateral information. 4. Encourage individual, group and milieu therapy. 5. Continue every 15 minute checks for safety. 6. Encourage sober living treatment after discharge at at the highest level of care to which she is willing to commit. PDMP PDMP Reviewed: Not Reviewed Involuntary Hold Information 2 Hold Status: Legal Status: 96 Hour Hold Date/Time Hold Expires: 01/01/25@1918 96 Hour Hold: 96 Hour Involuntary Admission: No Attestations NPU 2 Medical Necessity Statement*: Inpatient hospitalization is medically necessary and the clinically appropriate intervention at this time. We will initiate medications and titrate to effect. Likely length of stay 5-7 days. Coding Level of Care Code Acute Code for g Fwd Diagnoses Adjustment disorder F43.20 Cluster B personality disorder F60.89 Chronic post-traumatic stress disorder F43.12 Amphetamine addiction F15.20 Psychosis F29 Anxiety and depression F41.9; F32.9 Withdrawal from methamphetamine F15.93 Methamphetamine intoxication F15.929
[2024-12-31] MEDS: trazodone 50 mg Tablet PO ×2 (19:02→20:37)
[2024-12-31] MEDS: hyDROXYzine 25 mg Capsule 50 MG PO ×2 (19:02→20:37)
[2024-12-31 21:05] VITALS: BP 97/59; PULSE 90; RESP 16; TEMP 36.7; O2SAT 96
[2025-01-01 06:00] VITALS: BP 99/70; PULSE 105; RESP 18; TEMP 36.8; O2SAT 98
[2025-01-01] MEDS: paliperidone ER 9 mg Tablet PO (08:46)
[2025-01-01] MEDS: hyDROXYzine 25 mg Capsule 50 MG PO ×2 (08:46→20:47)
[2025-01-01] MEDS: acetaminophen 325 mg Tablet 650 MG PO ×2 (08:51→16:57)
[2025-01-01] MEDS: nicotine 2 mg Gum BUCCAL (09:18)
[2025-01-01] MEDS: OLANZapine 5 mg ODT PO (13:35)
[2025-01-01 14:00] VITALS: BP 118/72; PULSE 79; RESP 20; TEMP 36.6; O2SAT 93
--- NOTE | 2025-01-01 17:15 | P.NPUPN_ITS ---
Subjective NPU 2 Subjective: 44-year-old female with a history of met hamphetamine abuse admitted with bizarre and disorganized behavior under the influence of methamphetamine. Patient had reported that she still was distracted by her thoughts. She reported that she had been off of her medications for several months. She had admitted to the use of methamphetamine a few months ago. She had still stated that she was distracted by scary thoughts in her head. She had been isolated on the milieu. She had required some prompting for completion of activities of daily living. The patient had minimized any suicidal thoughts at this time. She had reported that she was uncertain as to whether she had a place to stay when she leaves here at this time. Mental Status Exam 2 MSE Comments: This is a slender versus cachectic white female in hospital scrubs with poor grooming and eye contact. Poor dentition/absent teeth no abnormal involuntary motor movements except for significant psychomotor retardation. Cooperative with exam in mild to moderate distress. Speech was significantly decreased in rate and volume and limited productivity and slurred at times. Mood described as okay. Affect was subdued and mood incongruent. Thought process was linear but superficial. Thought content: Patient denied any suicidal or homicidal ideation. She endorsed signficant ideas of reference and paranoia. There was evidence of thought blocking. She endorses auditory hallucinations but denied visual hallucinations. Attention and concentration appeared limited and memory appeared unreliable but none were formally tested. She is alert and oriented x person and place. Insight, judgment and impulse control were impaired. Vitals/I&O/Wt Last Vital Signs Temp 97.9 F 01/01/25 14:00 Pulse 79 01/01/25 14:00 Resp 20 H 01/01/25 14:00 BP 118/72 01/01/25 14:00 Pulse Ox 93 01/01/25 14:00 O2 Del Method Room Air 01/01/25 14:00 01/01/25 01/01/25 01/01/25 06:59 14:59 22:59 Intake Total 0 / 0 Balance 0 / 0 Weight last 48 hrs Weight 64.501 kg Data NPU 12/26/24 19:27 12/26/24 19:27 A&P Assessment and plan (1) Adjustment disorder: (2) Cluster B personality disorder: (3) Chronic post-traumatic stress disorder: (4) Amphetamine addiction: (5) Psychosis: (6) Anxiety and depression: (7) Withdrawal from methamphetamine: (8) Methamphetamine intoxication: Plan This is a 34-year-old white female known from past admissions with reported extended history of trauma, intellectual disability, significant addiction and 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 Continue invega 9mg daily. 2. Paperwork completed for extended 21 day hold. 3. Obtain collateral information. 4. Encourage individual, group and milieu therapy. 5. Continue every 15 minute checks for safety. 6. Encourage sober living treatment after discharge at at the highest level of care to which she is willing to commit. PDMP PDMP Reviewed: Not Reviewed Involuntary Hold Information 2 Hold Status: Legal Status: 96 Hour Hold Date/Time Hold Expires: 01/01/25@1918 96 Hour Hold: 96 Hour Involuntary Admission: No Attestations NPU 2 Medical Necessity Statement*: Inpatient hospitalization is medically necessary and the clinically appropriate intervention at this time. We will initiate medications and titrate to effect. Likely length of stay 5-7 days. Coding Level of Care Code Acute Code for [facility] Fwd Diagnoses Adjustment disorder F43.20 Cluster B personality disorder F60.89 Chronic post-traumatic stress disorder F43.12 Amphetamine addiction F15.20 Psychosis F29 Anxiety and depression F41.9; F32.9 Withdrawal from methamphetamine F15.93 Methamphetamine intoxication F15.929
[2025-01-01 20:16] VITALS: BP 103/63; PULSE 81; RESP 17; TEMP 36.6
[2025-01-01] MEDS: trazodone 50 mg Tablet PO (20:47)
[2025-01-02 06:00] VITALS: BP 117/70; PULSE 97; RESP 16; TEMP 36.7; O2SAT 96
[2025-01-02] MEDS: paliperidone ER 9 mg Tablet PO (08:53)
[2025-01-02] MEDS: nicotine 4 mg lozenge MUCOUS MEM ×3 (10:22→16:26)
[2025-01-02 14:00] VITALS: BP 115/78; PULSE 86; RESP 16; TEMP 36.6; O2SAT 97
--- NOTE | 2025-01-02 16:02 | P.NPUPN_ITS ---
Subjective NPU 2 Subjective: 44-year-old female with a history of met hamphetamine abuse admitted with bizarre and disorganized behavior under the influence of methamphetamine. The patient had continued to wander around the unit without any particular plan or direction. She appeared at times to be distracted by her thoughts. She had been able to care for her activities of daily living with some prompting. She had acknowledged the use of methamphetamine and stated that she wished to go home. The patient had reported no depression currently. She had reported that the voices were quieter today. The patient could not recall why she was brought into the hospital. The patient continued to appear somewhat isolative on the milieu. Mental Status Exam 2 MSE Comments: This is a slender versus cachectic white female in hospital scrubs with poor grooming and fleeting eye contact. Poor dentition/absent teeth no abnormal involuntary motor movements except for significant psychomotor retardation. She was cooperative with exam in mild to moderate distress. Speech was significantly decreased in rate and volume and limited productivity and slurred at times. Mood described as all right. Affect was subdued and mood incongruent. Thought process was linear but superficial. Thought content: Patient denied any suicidal or homicidal ideation. There was considerable paranoia noted. There was evidence of thought blocking. She endorses auditory hallucinations but denied visual hallucinations. Attention and concentration appeared limited and memory appeared unreliable but none were formally tested. She is alert and oriented x person and place. Insight, judgment and impulse control were impaired. Vitals/I&O/Wt Last Vital Signs Temp 97.8 F 01/02/25 14:00 Pulse 86 01/02/25 14:00 Resp 16 01/02/25 14:00 BP 115/78 01/02/25 14:00 Pulse Ox 97 01/02/25 14:00 O2 Del Method Room Air 01/02/25 06:00 Data NPU 12/26/24 19:27 12/26/24 19:27 A&P Assessment and plan (1) Psychosis: (2) Adjustment disorder: (3) Cluster B personality disorder: (4) Chronic post-traumatic stress disorder: (5) Amphetamine addiction: (6) Anxiety and depression: (7) Withdrawal from methamphetamine: (8) Methamphetamine intoxication: Plan This is a 34-year-old white female known from past admissions with reported extended history of trauma, intellectual disability, significant addiction and 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 Continue invega 9mg daily. 2. Paperwork completed for extended 21 day hold. 3. Obtain collateral information. 4. Encourage individual, group and milieu therapy. 5. Continue every 15 minute checks for safety. 6. Encourage sober living treatment after discharge at at the highest level of care to which she is willing to commit. PDMP PDMP Reviewed: Not Reviewed Involuntary Hold Information 2 Hold Status: Legal Status: 96 Hour Hold Date/Time Hold Expires: 01/01/25@1918 96 Hour Hold: 96 Hour Involuntary Admission: No Attestations NPU 2 Medical Necessity Statement*: Inpatient hospitalization is medically necessary and the clinically appropriate intervention at this time. We will initiate medications and titrate to effect. Likely length of stay 5-7 days. Coding Level of Care Code Acute Code for [facility] Fwd Diagnoses Psychosis F29 Adjustment disorder F43.20 Cluster B personality disorder F60.89 Chronic post-traumatic stress disorder F43.12 Amphetamine addiction F15.20 Anxiety and depression F41.9; F32.9 Withdrawal from methamphetamine F15.93 Methamphetamine intoxication F15.929
[2025-01-02] MEDS: trazodone 50 mg Tablet PO (20:07)
[2025-01-02] MEDS: hyDROXYzine 25 mg Capsule 50 MG PO (20:07)
[2025-01-02] MEDS: nicotine 2 mg Gum BUCCAL (20:07)
[2025-01-02 20:18] VITALS: BP 112/75; PULSE 99; RESP 18; TEMP 36.7; O2SAT 98
[2025-01-03 06:00] VITALS: BP 86/56; PULSE 92; RESP 17; TEMP 37.2; O2SAT 98
[2025-01-03] MEDS: paliperidone ER 9 mg Tablet PO (08:07)
[2025-01-03] MEDS: nicotine 4 mg lozenge MUCOUS MEM ×2 (13:44→18:26)
--- NOTE | 2025-01-03 13:46 | PC.NURSE ---
Court Pt left from [id number]
[2025-01-03 14:00] VITALS: BP 91/63; PULSE 79; RESP 17; TEMP 36.9; O2SAT 100
--- NOTE | 2025-01-03 16:50 | P.NPUPN_ITS ---
Subjective NPU 2 Subjective: 44-year-old female with a history of met hamphetamine abuse admitted with bizarre and disorganized behavior under the influence of methamphetamine. The patient had continued to minimize methamphetamine use. She had arrived to court and stated that she felt ready to return home. Patient was placed on 21-day hold as she had admitted that she continued to be distracted by her thoughts. She had stated that she was feeling a little bit better. She denied any thoughts of hurting herself or others. She reported that she did not have much recollection of what happened when she used methamphetamine. Previous records reviewed had suggested that the patient had been engaged in self stimulation in a public place and had been engaging in bizarre behavior at home. The patient had reported that she felt more calm. She reported adequate sleep. She had continued to require prompting for completion of activities of daily living. Mental Status Exam 2 MSE Comments: This is a slender tall versus cachectic white female in hospital scrubs with poor grooming and fleeting eye contact. Poor dentition/absent teeth no abnormal involuntary motor movements except for significant psychomotor retardation. She was cooperative with exam in mild to moderate distress. Speech was significantly decreased in rate and volume and limited productivity with no slurring today. Mood described as all right. Affect was subdued and mood incongruent. Thought process was linear but superficial. Thought content: Patient denied any suicidal or homicidal ideation. There was considerable paranoia noted. There was evidence of thought blocking. She endorses auditory hallucinations but denied visual hallucinations. Attention and concentration appeared limited and memory appeared unreliable but none were formally tested. She is alert and oriented x person and place. Insight, judgment and impulse control were impaired. Vitals/I&O/Wt Last Vital Signs Temp 98.5 F 01/03/25 14:00 Pulse 79 01/03/25 14:00 Resp 17 01/03/25 14:00 BP 91/63 01/03/25 14:00 Pulse Ox 100 01/03/25 14:00 O2 Del Method Room Air 01/03/25 06:00 Data NPU 12/26/24 19:27 12/26/24 19:27 A&P Assessment and plan (1) Psychosis: (2) Adjustment disorder: (3) Cluster B personality disorder: (4) Chronic post-traumatic stress disorder: (5) Amphetamine addiction: (6) Anxiety and depression: (7) Withdrawal from methamphetamine: (8) Methamphetamine intoxication: Plan This is a 34-year-old white female known from past admissions with reported extended history of trauma, intellectual disability, significant addiction and 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 Continue invega 9mg daily. 2. Patient now on 21 day hold. 3. Obtain collateral information. 4. Encourage individual, group and milieu therapy. 5. Continue every 15 minute checks for safety. 6. Encourage sober living treatment after discharge at at the highest level of care to which she is willing to commit. 7. Family expressed concern about patient's behavior under influence of amphetamine and considering guardianship. PDMP PDMP Reviewed: Not Reviewed Involuntary Hold Information 2 Hold Status: Legal Status: 96 Hour Hold Date/Time Hold Expires: 01/01/25@1918 96 Hour Hold: 96 Hour Involuntary Admission: No Attestations NPU 2 Medical Necessity Statement*: Inpatient hospitalization is medically necessary and the clinically appropriate intervention at this time. We will initiate medications and titrate to effect. Likely length of stay 5-7 days. Coding Level of Care Code Acute Code for [facility] Fwd Diagnoses Psychosis F29 Adjustment disorder F43.20 Cluster B personality disorder F60.89 Chronic post-traumatic stress disorder F43.12 Amphetamine addiction F15.20 Anxiety and depression F41.9; F32.9 Withdrawal from methamphetamine F15.93 Methamphetamine intoxication F15.929
[2025-01-03 22:00] VITALS: BP 113/99; PULSE 111; RESP 17; TEMP 36.6; O2SAT 99
[2025-01-04 06:00] VITALS: BP 87/57; PULSE 73; RESP 16; TEMP 36.8; O2SAT 99
[2025-01-04] MEDS: paliperidone ER 9 mg Tablet PO (08:52)
[2025-01-04 14:00] VITALS: BP 111/75; PULSE 83; RESP 16; O2SAT 100
--- NOTE | 2025-01-04 16:47 | P.NPUPN_ITS ---
Subjective NPU 2 Subjective: 44-year-old female with a history of met hamphetamine abuse admitted with bizarre and disorganized behavior under the influence of methamphetamine. The patient had continued to minimize methamphetamine use. She had reported feeling depressed. She had reported diminished appetite. She had required some prompting to complete activities of daily living. The patient had reported some history of pain issues. She had not endorsed any legal problems currently. She was unable to recall the longest period of time that she had remained sober off of amphetamines since beginning use. She reported cravings for nicotine. Mental Status Exam 2 MSE Comments: This is a slender tall versus cachectic white female in hospital scrubs with poor grooming and fleeting eye contact. Poor dentition/absent teeth no abnormal involuntary motor movements except for significant psychomotor retardation. She was cooperative with exam in mild to moderate distress. Speech was significantly decreased in rate and volume and limited productivity with no slurring today. Mood described as depressed. Affect was flat today. Thought process was linear but superficial. Thought content: Patient denied any suicidal or homicidal ideation. There was considerable paranoia noted. There was evidence of thought blocking though less frequent. She endorses auditory hallucinations but denied visual hallucinations. Attention and concentration appeared limited and memory appeared unreliable but none were formally tested. She is alert and oriented x person and place. Insight, judgment and impulse control were impaired. Vitals/I&O/Wt Last Vital Signs Temp 98.3 F 01/04/25 06:00 Pulse 83 01/04/25 14:00 Resp 16 01/04/25 14:00 BP 111/75 01/04/25 14:00 Pulse Ox 100 01/04/25 14:00 O2 Del Method Room Air 01/04/25 14:00 Data NPU 12/26/24 19:27 12/26/24 19:27 A&P Assessment and plan (1) Psychosis: (2) Adjustment disorder: (3) Cluster B personality disorder: (4) Chronic post-traumatic stress disorder: (5) Amphetamine addiction: (6) Anxiety and depression: (7) Withdrawal from methamphetamine: (8) Methamphetamine intoxication: Plan This is a 34-year-old white female known from past admissions with reported extended history of trauma, intellectual disability, significant addiction and 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 Continue invega 9mg daily. 2. Patient now on 21 day hold. 3. Obtain collateral information. 4. Encourage individual, group and milieu therapy. 5. Continue every 15 minute checks for safety. 6. Encourage sober living treatment after discharge at at the highest level of care to which she is willing to commit. 7. Family expressed concern about patient's behavior under influence of amphetamine and considering guardianship. PDMP PDMP Reviewed: Not Reviewed Involuntary Hold Information 2 Hold Status: Legal Status: 21 Day Hold Date/Time Hold Expires: 01/24/25 96 Hour Hold: 96 Hour Involuntary Admission: No Attestations NPU 2 Medical Necessity Statement*: Inpatient hospitalization is medically necessary and the clinically appropriate intervention at this time. We will initiate medications and titrate to effect. The patient's likely length of stay 5-7 days. Coding Level of Care Code Acute Code for g Fwd Diagnoses Psychosis F29 Adjustment disorder F43.20 Cluster B personality disorder F60.89 Chronic post-traumatic stress disorder F43.12 Amphetamine addiction F15.20 Anxiety and depression F41.9; F32.9 Withdrawal from methamphetamine F15.93 Methamphetamine intoxication F15.929
[2025-01-04] MEDS: nicotine 4 mg lozenge MUCOUS MEM ×2 (17:15→19:17)
[2025-01-04 19:38] VITALS: BP 99/66; PULSE 112; RESP 16; TEMP 37.2; O2SAT 99
[2025-01-04] MEDS: hyDROXYzine 25 mg Capsule 50 MG PO (20:17)
[2025-01-04] MEDS: trazodone 50 mg Tablet PO (20:17)
[2025-01-05 06:00] VITALS: BP 111/69; PULSE 100; RESP 16; TEMP 36.4; O2SAT 100
[2025-01-05] MEDS: hyDROXYzine 25 mg Capsule 50 MG PO (08:11)
[2025-01-05] MEDS: paliperidone ER 9 mg Tablet PO (08:11)
[2025-01-05] MEDS: nicotine 4 mg lozenge MUCOUS MEM ×4 (09:07→18:48)
[2025-01-05 14:45] VITALS: BP 96/67; PULSE 130; RESP 18; TEMP 36.7; O2SAT 100
--- NOTE | 2025-01-05 17:08 | P.NPUPN_ITS ---
Subjective NPU 2 Subjective: 44-year-old female with a history of met hamphetamine abuse admitted with bizarre and disorganized behavior under the influence of methamphetamine. The patient had continued to appear confused at times. She had been struggling to complete her thoughts and spent significant amount of time wandering on the unit. She had shown evidence of poor boundaries as she had gone into other patients rooms. She had been compliant with her medication regimen. She continued to report having problems with recalling why she was here in the hospital. The patient had reported some depression at this time. She reported no pain issues. She had spent much of the day in her room and was minimally interactive in groups. Mental Status Exam 2 MSE Comments: This is a slender tall versus cachectic white female in hospital scrubs with poor grooming and fleeting eye contact. Poor dentition/absent teeth no abnormal involuntary motor movements except for significant psychomotor retardation. She was partially cooperative with exam in mild to moderate distress. Speech was significantly decreased in rate and volume and limited productivity with no slurring today. Mood described as depressed. Affect was odd and subdued. Thought process was linear but superficial. Thought content: Patient denied any suicidal or homicidal ideation. There was considerable paranoia noted. There was evidence of thought blocking again today. She endorses auditory hallucinations but denied visual hallucinations. Attention and concentration appeared limited and memory appeared unreliable but none were formally tested. She is alert and oriented x person and place. Insight, judgment and impulse control were impaired. Vitals/I&O/Wt Last Vital Signs Temp 98.1 F 01/05/25 14:45 Pulse 130 H 01/05/25 14:45 Resp 18 01/05/25 14:45 BP 96/67 01/05/25 14:45 Pulse Ox 100 01/05/25 14:45 O2 Del Method Room Air 01/05/25 14:45 Data NPU 12/26/24 19:27 12/26/24 19:27 A&P Assessment and plan (1) Psychosis: (2) Adjustment disorder: (3) Cluster B personality disorder: (4) Chronic post-traumatic stress disorder: (5) Amphetamine addiction: (6) Anxiety and depression: (7) Withdrawal from methamphetamine: (8) Methamphetamine intoxication: Plan This is a 34-year-old white female known from past admissions with reported extended history of trauma, intellectual disability, significant addiction and 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 Continue invega 9mg daily. 2. Patient now on 21 day hold. 3. Obtain collateral information. 4. Encourage individual, group and milieu therapy. 5. Continue every 15 minute checks for safety. 6. Encourage sober living treatment after discharge at at the highest level of care to which she is willing to commit. 7. Family expressed concern about patient's behavior under influence of amphetamine and considering guardianship. PDMP PDMP Reviewed: Not Reviewed Involuntary Hold Information 2 Hold Status: Legal Status: 21 Day Hold Date/Time Hold Expires: 01/24/25 96 Hour Hold: 96 Hour Involuntary Admission: No Attestations NPU 2 Medical Necessity Statement*: Inpatient hospitalization is medically necessary and the clinically appropriate intervention at this time. We will initiate medications and titrate to effect. The patient's likely length of stay 5-7 days. Coding Level of Care Code Acute Code for [facility] Fwd Diagnoses Psychosis F29 Adjustment disorder F43.20 Cluster B personality disorder F60.89 Chronic post-traumatic stress disorder F43.12 Amphetamine addiction F15.20 Anxiety and depression F41.9; F32.9 Withdrawal from methamphetamine F15.93 Methamphetamine intoxication F15.929
[2025-01-05 20:15] VITALS: BP 114/78; PULSE 110; RESP 18; TEMP 36.7; O2SAT 100
[2025-01-06 06:00] VITALS: BP 100/71; PULSE 79; RESP 16; O2SAT 98
[2025-01-06] MEDS: paliperidone ER 9 mg Tablet PO (08:03)
[2025-01-06] MEDS: hyDROXYzine 25 mg Capsule 50 MG PO ×2 (08:03→19:56)
--- NOTE | 2025-01-06 12:47 | P.NPUPN_ITS ---
Subjective NPU 2 Subjective: 44-year-old female with a history of met hamphetamine abuse admitted with bizarre and disorganized behavior under the influence of methamphetamine. The patient continued to wander around the unit with limited engagement in goal-directed activities. She had reported that she continued to be distracted and stated that she had not spoken to any family members about returning home. She had reported that she had felt that her thoughts were not completely her own. She had reported adequate sleep and reported no side effects from her medication. She had required some prompting for completion of activities of daily living. She had been isolative on the milieu. She continued to require some redirection in regards to entering into other people's personal spaces. Mental Status Exam 2 MSE Comments: This is a slender tall versus cachectic white female in hospital scrubs with poor grooming and fleeting eye contact. Poor dentition/absent teeth no abnormal involuntary motor movements except for significant psychomotor retardation. She was partially cooperative with exam in mild to moderate distress. Speech was decreased in rate and volume and limited productivity with no slurring today. Mood described as fine Affect was odd and subdued. Thought process was linear but superficial. Thought content: Patient denied any suicidal or homicidal ideation. There was considerable paranoia noted. There was evidence of thought blocking. She endorses auditory hallucinations but denied visual hallucinations. Attention and concentration appeared limited and memory appeared unreliable but none were formally tested. She is alert and oriented x person and place. Insight, judgment and impulse control were impaired. Vitals/I&O/Wt Last Vital Signs Temp 98.0 F 01/05/25 20:15 Pulse 79 01/06/25 06:00 Resp 16 01/06/25 06:00 BP 100/71 01/06/25 06:00 Pulse Ox 98 01/06/25 06:00 O2 Del Method Room Air 01/05/25 14:45 01/05/25 01/06/25 01/06/25 22:59 06:59 14:59 Intake Total 0 / 0 Balance 0 / 0 Data NPU 12/26/24 19:27 12/26/24 19:27 A&P Assessment and plan (1) Psychosis: (2) Adjustment disorder: (3) Cluster B personality disorder: (4) Chronic post-traumatic stress disorder: (5) Amphetamine addiction: (6) Anxiety and depression: (7) Withdrawal from methamphetamine: (8) Methamphetamine intoxication: Plan This is a 34-year-old white female known from past admissions with reported extended history of trauma, intellectual disability, significant addiction and 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 Continue invega 9mg daily. 2. Patient now on 21 day hold. 3. Obtain collateral information. 4. Encourage individual, group and milieu therapy. 5. Continue every 15 minute checks for safety. 6. Encourage sober living treatment after discharge at at the highest level of care to which she is willing to commit. 7. Family expressed concern about patient's behavior under influence of amphetamine and considering guardianship. PDMP PDMP Reviewed: Not Reviewed Involuntary Hold Information 2 Hold Status: Legal Status: 21 Day Hold Date/Time Hold Expires: 01/24/25 96 Hour Hold: 96 Hour Involuntary Admission: No Attestations NPU 2 Medical Necessity Statement*: Inpatient hospitalization is medically necessary and the clinically appropriate intervention at this time. We will initiate medications and titrate to effect. The patient's likely length of stay 5-7 days. Coding Level of Care Code Acute Code for [facility] Fwd Diagnoses Psychosis F29 Adjustment disorder F43.20 Cluster B personality disorder F60.89 Chronic post-traumatic stress disorder F43.12 Amphetamine addiction F15.20 Anxiety and depression F41.9; F32.9 Withdrawal from methamphetamine F15.93 Methamphetamine intoxication F15.929
[2025-01-06] MEDS: acetaminophen 325 mg Tablet 650 MG PO ×2 (13:26→19:56)
[2025-01-06 14:00] VITALS: BP 102/70; PULSE 106; RESP 17; TEMP 36.4; O2SAT 100
[2025-01-06] MEDS: nicotine 4 mg lozenge MUCOUS MEM ×2 (16:05→18:00)
[2025-01-06 19:35] VITALS: BP 123/77; PULSE 93; RESP 16; TEMP 36.6; O2SAT 100
[2025-01-06] MEDS: trazodone 50 mg Tablet PO (19:56)
[2025-01-07 04:25] VITALS: BP 92/61; PULSE 77; RESP 16; TEMP 36.4; O2SAT 94
[2025-01-07] MEDS: paliperidone ER 9 mg Tablet PO (08:13)
[2025-01-07] MEDS: nicotine 4 mg lozenge MUCOUS MEM ×2 (08:13→11:17)
--- NOTE | 2025-01-07 10:44 | P.NPUPN_ITS ---
Subjective NPU 2 Subjective: 44-year-old female with a history of met hamphetamine abuse admitted with bizarre and disorganized behavior under the influence of methamphetamine. Patient had reported that she continued to feel distracted by her thoughts. She had reported that her methamphetamine use had made her much worse. She reports having problems with memory and reported having spells where she was unable to recall where or what she was doing when using methamphetamine. She had reported some sadness about not being able to go home. She had reported no side effects from her Invega. She had continued to report that she felt like the thoughts that she had were not completely her own. She had reported at times feeling that those thoughts were somehow influencing her but she was unable to elaborate regarding this statement. Mental Status Exam 2 MSE Comments: This is a slender tall versus cachectic white female in hospital scrubs with improved grooming and fleeting eye contact. She was making her bed today. Poor dentition/absent teeth no abnormal involuntary motor movements except for significant psychomotor retardation. She was more cooperative with exam in mild to moderate distress. Speech was decreased in rate and volume and limited productivity with no slurring today. Mood described as okay. Affect was odd, subdued and mood incongruent. Thought process was linear but superficial. Thought content: Patient denied any suicidal or homicidal ideation. There was paranoia noted. There was evidence of thought blocking. She endorses auditory hallucinations but denied visual hallucinations. She reported feeling her thoughts were not her own. Attention and concentration appeared limited and memory appeared unreliable but none were formally tested. She is alert and oriented x person and place. Insight was poor. Her judgment and impulse control were impaired. Vitals/I&O/Wt Last Vital Signs Temp 97.6 F 01/07/25 04:25 Pulse 77 01/07/25 04:25 Resp 16 01/07/25 04:25 BP 92/61 01/07/25 04:25 Pulse Ox 94 01/07/25 04:25 O2 Del Method Room Air 01/07/25 04:25 01/06/25 01/07/25 01/07/25 22:59 06:59 14:59 Intake Total 0 / 0 Balance 0 / 0 Weight last 48 hrs Weight 64.592 kg Data NPU 12/26/24 19:27 12/26/24 19:27 A&P Assessment and plan (1) Psychosis: (2) Adjustment disorder: (3) Cluster B personality disorder: (4) Chronic post-traumatic stress disorder: (5) Amphetamine addiction: (6) Anxiety and depression: (7) Withdrawal from methamphetamine: (8) Methamphetamine intoxication: Plan This is a 34-year-old white female known from past admissions with reported extended history of trauma, intellectual disability, significant addiction and 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 Continue invega 9mg daily. Patient agreeable to invega IM 234mg today. 2. Patient now on 21 day hold. 3. Obtain collateral information. 4. Encourage individual, group and milieu therapy. 5. Continue every 15 minute checks for safety. 6. Encourage sober living treatment after discharge at at the highest level of care to which she is willing to commit. 7. Family expressed concern about patient's behavior under influence of amphetamine and considering guardianship. PDMP PDMP Reviewed: Not Reviewed Involuntary Hold Information 2 Hold Status: Legal Status: 21 Day Hold Date/Time Hold Expires: 01/24/25 96 Hour Hold: 96 Hour Involuntary Admission: No Attestations NPU 2 Medical Necessity Statement*: Inpatient hospitalization is medically necessary and the clinically appropriate intervention at this time. We will initiate medications and titrate to effect. The patient's likely length of stay 5-7 days. Coding Level of Care Code Acute Code for [facility] Diagnoses Psychosis F29 Adjustment disorder F43.20 Cluster B personality disorder F60.89 Chronic post-traumatic stress disorder F43.12 Amphetamine addiction F15.20 Anxiety and depression F41.9; F32.9 Withdrawal from methamphetamine F15.93 Methamphetamine intoxication F15.929
[2025-01-07] MEDS: paliperidone palmitate 234 mg Syringe IM (11:16)
[2025-01-07 14:00] VITALS: BP 116/87; PULSE 94; RESP 16; TEMP 36.8; O2SAT 97
[2025-01-07 19:48] VITALS: BP 94/66; PULSE 88; RESP 16; TEMP 36.6; O2SAT 100
[2025-01-07] MEDS: trazodone 50 mg Tablet PO (20:19)
[2025-01-07] MEDS: acetaminophen 325 mg Tablet 650 MG PO (20:20)
[2025-01-07] MEDS: hyDROXYzine 25 mg Capsule 50 MG PO (20:20)
[2025-01-08 06:00] VITALS: BP 100/69; PULSE 85; RESP 17; TEMP 36.4; O2SAT 98
[2025-01-08] MEDS: nicotine 4 mg lozenge MUCOUS MEM ×2 (08:06→10:04)
[2025-01-08] MEDS: paliperidone ER 9 mg Tablet PO (08:06)
--- NOTE | 2025-01-08 10:29 | P.NPUPN_ITS ---
Subjective NPU 2 Subjective: 44-year-old female with a history of met hamphetamine abuse admitted with bizarre and disorganized behavior under the influence of methamphetamine. The patient continued to report that she had thoughts in her head that she described as not being her own. Patient had reported that she continued to feel distracted by her thoughts. The patient did appear to be interested in getting more intensive help for her addiction. She had continued to require some prompting for completion of daily tasks as she had appeared at times to be confused often asking the nursing staff the same questions or making requests to drink or eat despite having asked the similar question just 10 minutes earlier. The patient had minimized any depression at this time. She had reported that she was feeling better. Mental Status Exam 2 MSE Comments: This is a slender tall versus cachectic white female in hospital scrubs with improved grooming and fleeting eye contact. Poor dentition/absent teeth no abnormal involuntary motor movements except for significant psychomotor retardation. She was more cooperative with exam in mild to moderate distress. Speech was decreased in rate and volume and limited productivity with no slurring today. Mood described as allright. Affect was odd, subdued and mood incongruent. Thought process was linear but superficial. Thought content: Patient denied any suicidal or homicidal ideation. There was paranoia noted. There was evidence of thought blocking. She endorses auditory hallucinations but denied visual hallucinations. She reported feeling her thoughts were not her own. Attention and concentration appeared limited and memory appeared unreliable but none were formally tested. She is alert and oriented x person and place. Insight was poor. Her judgment and impulse control were impaired. Vitals/I&O/Wt Last Vital Signs Temp 97.5 F L 01/08/25 06:00 Pulse 85 01/08/25 06:00 Resp 17 01/08/25 06:00 BP 100/69 01/08/25 06:00 Pulse Ox 98 01/08/25 06:00 O2 Del Method Room Air 01/08/25 06:00 Weight last 48 hrs Weight 64.592 kg Data NPU 12/26/24 19:27 12/26/24 19:27 A&P Assessment and plan (1) Psychosis: (2) Adjustment disorder: (3) Cluster B personality disorder: (4) Chronic post-traumatic stress disorder: (5) Amphetamine addiction: (6) Anxiety and depression: (7) Withdrawal from methamphetamine: (8) Methamphetamine intoxication: Plan This is a 34-year-old white female known from past admissions with reported extended history of trauma, intellectual disability, significant addiction and 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 Reduce invega 6mg daily. Patient given invega IM 234mg on 01/07/25. 2. Patient now on 21 day hold. 3. Obtain collateral information. 4. Encourage individual, group and milieu therapy. 5. Continue every 15 minute checks for safety. 6. Encourage sober living treatment after discharge at at the highest level of care to which she is willing to commit. 7. Family expressed concern about patient's behavior under influence of amphetamine and considering guardianship. PDMP PDMP Reviewed: Not Reviewed Involuntary Hold Information 2 Hold Status: Legal Status: 21 Day Hold Date/Time Hold Expires: 01/24/25 96 Hour Hold: 96 Hour Involuntary Admission: No Attestations NPU 2 Medical Necessity Statement*: Inpatient hospitalization is medically necessary and the clinically appropriate intervention at this time. We will initiate medications and titrate to effect. The patient's likely length of stay 5-7 days. Coding Level of Care Code Acute Code for [facility]wd Diagnoses Psychosis F29 Adjustment disorder F43.20 Cluster B personality disorder F60.89 Chronic post-traumatic stress disorder F43.12 Amphetamine addiction F15.20 Anxiety and depression F41.9; F32.9 Withdrawal from methamphetamine F15.93 Methamphetamine intoxication F15.929
[2025-01-08] MEDS: nicotine 2 mg Gum BUCCAL (13:03)
[2025-01-08 14:00] VITALS: BP 120/73; PULSE 73; RESP 17; TEMP 36.6; O2SAT 100
[2025-01-08 20:27] VITALS: BP 113/88; PULSE 108; RESP 18; TEMP 36.6; O2SAT 97
[2025-01-09 06:00] VITALS: BP 95/62; PULSE 115; RESP 18; TEMP 36.4; O2SAT 98
[2025-01-09] MEDS: hyDROXYzine 25 mg Capsule 50 MG PO (07:32)
[2025-01-09] MEDS: loperamide 2 mg Capsule PO (07:33)
[2025-01-09] MEDS: nicotine 2 mg Gum BUCCAL ×2 (07:36→16:40)
--- NOTE | 2025-01-09 08:55 | PC.NURSE ---
denies hi but states 3 times since she has been here she has blacked out to the blue area which is the outer lining of the color of herself when asked by this rn burn how long the black outs last pt states for an instant. pt was seen walking into dayroom and what appeared to flip off the room. when asked pt laughed and said yes then started looking back into dayroom from the hallway stating the kleenex box was to shinny.
[2025-01-09] MEDS: paliperidone ER 6 mg Tablet PO (08:57)
--- NOTE | 2025-01-09 12:53 | P.NPUPN_ITS ---
Subjective NPU 2 Subjective: 44-year-old female with a history of met hamphetamine abuse admitted with bizarre and disorganized behavior under the influence of methamphetamine. The patient had continued to appear confused at times. She had reported that she had periods of time where she was out of her body and seeing herself and reported that during those moments she was not herself. She had appeared more confused at times on the milieu. She had continued to struggle with repeatedly asking nurse repeatedly. She was polite and redirectable. She went to groups but the patient was minimally engaged and left group after collecting snack there. She minimized having any problems with methamphetamine abuse and stated that she would simply go home with friends. Family members had reported the patient had been using methamphetamine with her boyfriend. Mental Status Exam 2 MSE Comments: This is a slender tall versus cachectic white female in hospital scrubs with improved grooming and fleeting eye contact. Poor dentition/absent teeth no abnormal involuntary motor movements except for significant psychomotor retardation. She was more cooperative with exam in mild to moderate distress. Speech was decreased in rate and volume and limited productivity with no slurring today. Mood described as okay. Affect was odd, subdued and mood incongruent. Thought process was linear but superficial. Thought content: Patient denied any suicidal or homicidal ideation. There was paranoia noted. There was evidence of thought blocking. She endorses auditory hallucinations but denied visual hallucinations. She did appear to be responding to internal stimuli. She reported feeling her thoughts were not her own. Attention and concentration appeared limited and memory appeared unreliable but none were formally tested. She is alert and oriented x person and place. Insight was poor. Her judgment and impulse control were impaired. Vitals/I&O/Wt Last Vital Signs Temp 97.6 F 01/09/25 06:00 Pulse 115 H 01/09/25 06:00 Resp 18 01/09/25 06:00 BP 95/62 01/09/25 06:00 Pulse Ox 98 01/09/25 06:00 O2 Del Method Room Air 01/09/25 06:00 Data NPU 12/26/24 19:27 12/26/24 19:27 A&P Assessment and plan (1) Psychosis: (2) Adjustment disorder: (3) Cluster B personality disorder: (4) Chronic post-traumatic stress disorder: (5) Amphetamine addiction: (6) Anxiety and depression: (7) Withdrawal from methamphetamine: (8) Methamphetamine intoxication: Plan This is a 34-year-old white female known from past admissions with reported extended history of trauma, intellectual disability, significant addiction and 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 Continue invega 6mg daily. Patient given invega IM 234mg on 01/07/25. Next Invega IM on 01/14/25. 2. Patient now on 21 day hold. 3. Obtain collateral information. 4. Encourage individual, group and milieu therapy. 5. Continue every 15 minute checks for safety. 6. Encourage sober living treatment after discharge at at the highest level of care to which she is willing to commit. 7. Family expressed concern about patient's behavior under influence of amphetamine and considering guardianship. PDMP PDMP Reviewed: Not Reviewed Involuntary Hold Information 2 Hold Status: Legal Status: 21 Day Hold Date/Time Hold Expires: 01/24/25 96 Hour Hold: 96 Hour Involuntary Admission: No Attestations NPU 2 Medical Necessity Statement*: Inpatient hospitalization is medically necessary and the clinically appropriate intervention at this time. We will initiate medications and titrate to effect. The patient's likely length of stay 5-7 days. Coding Level of Care Code Acute Code for [facility] Fwd Diagnoses Psychosis F29 Adjustment disorder F43.20 Cluster B personality disorder F60.89 Chronic post-traumatic stress disorder F43.12 Amphetamine addiction F15.20 Anxiety and depression F41.9; F32.9 Withdrawal from methamphetamine F15.93 Methamphetamine intoxication F15.929
[2025-01-09 14:00] VITALS: BP 98/62; PULSE 115; RESP 18; TEMP 36.6; O2SAT 100
[2025-01-09 19:10] VITALS: BP 110/63; PULSE 111; RESP 18; TEMP 36.9; O2SAT 99
[2025-01-10 06:00] VITALS: BP 104/64; PULSE 102; RESP 16; TEMP 37.2; O2SAT 98
[2025-01-10] MEDS: paliperidone ER 6 mg Tablet PO (08:55)
[2025-01-10] MEDS: nicotine 2 mg Gum BUCCAL ×2 (08:55→17:20)
--- NOTE | 2025-01-10 13:22 | W.PM.NPUPNS ---
Subjective NPU Subjective: 44-year-old female with a history of methamphetamine abuse admitted with bizarre and disorganized behavior and psychosis while under the influence of methamphetamine. Patient continued to appear confused on the milieu. She had reported that she did not wish to consider substance abuse treatment despite adverse consequences from her methamphetamine use. She had continued to walk along the unit while requiring some redirection with the patient appearing at times confused and not able to sustain attention. She had spent time reading a book but when asked to read it she had reported that she did not understand the words or the meaning of what she was reading. She had continued to report that at times she felt like she was being controlled by her blue self. The patient reports that her boyfriend was legally obligated to stay clean and she would like to stay with him when she was ready to go home. Mental Status Exam MSE Comments: This is a slender tall versus cachectic white female in hospital scrubs with improved grooming and fleeting eye contact. Poor dentition/absent teeth no abnormal involuntary motor movements except for significant psychomotor retardation. She was more cooperative with exam in mild to moderate distress. Speech was decreased in rate and volume and limited productivity with no slurring today. Mood described as okay. Affect was odd, subdued and mood incongruent. Thought process was linear but derailed. Thought content: Patient denied any suicidal or homicidal ideation. There was paranoia noted. There was evidence of thought blocking. She endorses auditory hallucinations but denied visual hallucinations. She did appear to be responding to internal stimuli. She reported feeling her thoughts were not her own. Attention and concentration appeared limited and memory appeared unreliable but none were formally tested. She is alert and oriented x person and place. Insight was poor. Her judgment and impulse control were impaired. Vitals/I&O/Wt Last Vital Signs Temp 98.9 F 01/10/25 06:00 Pulse 102 H 01/10/25 06:00 Resp 16 01/10/25 06:00 BP 104/64 01/10/25 06:00 Pulse Ox 98 01/10/25 06:00 O2 Del Method Room Air 01/10/25 06:00 Data NPU 12/26/24 19:27 12/26/24 19:27 A&P Assessment and plan (1) Psychosis: (2) Adjustment disorder: (3) Cluster B personality disorder: (4) Chronic post-traumatic stress disorder: (5) Amphetamine addiction: (6) Anxiety and depression: (7) Withdrawal from methamphetamine: (8) Methamphetamine intoxication: Plan This is a 34-year-old white female known from past admissions with reported extended history of trauma, intellectual disability, significant addiction and 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 Continue invega 6mg daily. Patient given invega IM 234mg on 01/07/25. Next Invega IM 156mg ordered for 01/13/25. 2. Patient now on 21 day hold. 3. Obtain collateral information. 4. Encourage individual, group and milieu therapy. 5. Continue every 15 minute checks for safety. 6. Encourage sober living treatment after discharge at at the highest level of care to which she is willing to commit. 7. Family expressed concern about patient's behavior under influence of amphetamine and considering guardianship. PDMP PDMP Reviewed: Not Reviewed Involuntary Hold Information Hold Status: Legal Status: 21 Day Hold Date/Time Hold Expires: 01/24/25 96 Hour Hold: 96 Hour Involuntary Admission: No Attestations NPU Medical Necessity Statement*: Inpatient hospitalization is medically necessary and the clinically appropriate intervention at this time. We will initiate medications and titrate to effect. The patient's likely length of stay 5-7 days. Coding Level of Care Code Acute Code for [facility] Fwd Diagnoses Psychosis F29 Adjustment disorder F43.20 Cluster B personality disorder F60.89 Chronic post-traumatic stress disorder F43.12 Amphetamine addiction F15.20 Anxiety and depression F41.9; F32.9 Withdrawal from methamphetamine F15.93 Methamphetamine intoxication F15.929
[2025-01-10 14:00] VITALS: BP 105/74; PULSE 68; RESP 16; TEMP 37; O2SAT 97
[2025-01-10 19:36] VITALS: BP 111/70; PULSE 94; RESP 16; TEMP 36.7; O2SAT 100
[2025-01-11 04:12] VITALS: BP 106/72; PULSE 128; RESP 17; TEMP 36.4; O2SAT 100
[2025-01-11] MEDS: nicotine 2 mg Gum BUCCAL (09:04)
[2025-01-11] MEDS: paliperidone ER 6 mg Tablet PO (09:04)
--- NOTE | 2025-01-11 13:38 | P.NPUPN_ITS ---
Subjective NPU 2 Subjective: 44-year-old female with a history of met hamphetamine abuse admitted with bizarre and disorganized behavior and psychosis while under the influence of methamphetamine. The patient had reported no side effects from medication regimen. She continued to remain confused on the milieu. She continued to report that she did not need help with her methamphetamine use despite its adverse consequences for her. She was agreeable to dual diagnosis program on an outpatient basis. She had stated that she would like to live with her boyfriend who was working on maintaining sobriety off methamphetamine as well. She reported that she was able to sleep at night. She had denied any depressed mood currently. Mental Status Exam 2 MSE Comments: This is a slender tall versus cachectic white female in hospital scrubs with improved grooming and fleeting eye contact. Poor dentition/absent teeth no abnormal involuntary motor movements except for significant psychomotor retardation. She was more cooperative with exam in mild to moderate distress. Speech was decreased in rate and volume and limited productivity with no slurring today. Mood described as okay. Affect was odd, subdued and mood incongruent. Thought process was linear but derailed. Thought content: Patient denied any suicidal or homicidal ideation. There was paranoia noted. There was evidence of thought blocking. She endorses auditory hallucinations but denied visual hallucinations. She did appear to be responding to internal stimuli. She endorsed thought alienation. Attention and concentration appeared limited and memory appeared unreliable but none were formally tested. She is alert and oriented x person and place. Insight was poor. Her judgment and impulse control were impaired. Vitals/I&O/Wt Last Vital Signs Temp 97.6 F 01/11/25 04:12 Pulse 128 H 01/11/25 04:12 Resp 17 01/11/25 04:12 BP 106/72 01/11/25 04:12 Pulse Ox 100 01/11/25 04:12 O2 Del Method Room Air 01/11/25 04:12 01/10/25 01/11/25 01/11/25 22:59 06:59 14:59 Intake Total 720 / 720 Balance 720 / 720 Data NPU 12/26/24 19:27 12/26/24 19:27 A&P Assessment and plan (1) Psychosis: (2) Adjustment disorder: (3) Cluster B personality disorder: (4) Chronic post-traumatic stress disorder: (5) Amphetamine addiction: (6) Anxiety and depression: (7) Withdrawal from methamphetamine: (8) Methamphetamine intoxication: Plan This is a 34-year-old white female known from past admissions with reported extended history of trauma, intellectual disability, significant addiction and 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 Continue invega 6mg daily. Patient given invega IM 234mg on 01/07/25. Next Invega IM 156mg ordered for 01/13/25. 2. Patient now on 21 day hold. 3. Obtain collateral information. 4. Encourage individual, group and milieu therapy. 5. Continue every 15 minute checks for safety. 6. Encourage sober living treatment after discharge at at the highest level of care to which she is willing to commit. 7. Patient to enter [facility] program. Still showing slight improvement in last two weeks on invega. PDMP PDMP Reviewed: Not Reviewed Involuntary Hold Information 2 Hold Status: Legal Status: 21 Day Hold Date/Time Hold Expires: 01/24/25 96 Hour Hold: 96 Hour Involuntary Admission: No Attestations NPU 2 Medical Necessity Statement*: Inpatient hospitalization is medically necessary and the clinically appropriate intervention at this time. We will initiate medications and titrate to effect. The patient's likely length of stay 5-7 days. Coding Level of Care Code Acute Code for [facility] Fwd Diagnoses Psychosis F29 Adjustment disorder F43.20 Cluster B personality disorder F60.89 Chronic post-traumatic stress disorder F43.12 Amphetamine addiction F15.20 Anxiety and depression F41.9; F32.9 Withdrawal from methamphetamine F15.93 Methamphetamine intoxication F15.929
[2025-01-11 13:49] VITALS: BP 106/75; PULSE 100; RESP 19; TEMP 36.8; O2SAT 99
[2025-01-11 20:28] VITALS: BP 109/71; PULSE 114; RESP 16; TEMP 36.8; O2SAT 96
[2025-01-12 06:00] VITALS: BP 98/69; PULSE 104; RESP 16; TEMP 36.6; O2SAT 99
[2025-01-12] MEDS: paliperidone ER 6 mg Tablet PO (07:40)
[2025-01-12] MEDS: nicotine 2 mg Gum BUCCAL (07:40)
[2025-01-12] MEDS: nicotine 4 mg lozenge MUCOUS MEM (12:11)
[2025-01-12 14:00] VITALS: BP 103/72; PULSE 102; RESP 16; TEMP 36.8; O2SAT 99
--- NOTE | 2025-01-12 14:22 | W.PM.NPUPNS ---
Subjective NPU Subjective: Patient presented today reporting that she is doing okay. We discussed the fact that we would try the get her discharged next week and asked where she may go and she reports that she is now considering not going back with this person and that she may need to really avoid him. She reports that the medications are helpful and that she is getting a little better. She denied any side effects of the medication. Mental Status Exam MSE Comments: This is a slender white female in hospital scrubs with poor grooming and eye contact. Poor dentition/absent teeth no abnormal movements except for psychomotor retardation. Cooperative with exam in mild distress. Speech was more normal rate and volume and limited productivity. Mood described as a little better, affect congruent. Thought process organized. Thought content: Patient denied any suicidal or homicidal ideation, though there were no reports of delusions but patient was quite guarded, she endorses auditory hallucinations and occasional visual hallucinations. Attention and concentration appeared limited and memory appeared unreliable but none were formally tested. She is alert and oriented x person and place. Insight, judgment and impulse control were impaired. Vitals/I&O/Wt Last Vital Signs Temp 97.8 F 01/12/25 06:00 Pulse 104 H 01/12/25 06:00 Resp 16 01/12/25 06:00 BP 98/69 01/12/25 06:00 Pulse Ox 99 01/12/25 06:00 O2 Del Method Room Air 01/12/25 06:00 01/11/25 01/12/25 01/12/25 22:59 06:59 14:59 Intake Total 240 / 960 Balance 240 / 960 Data NPU 12/26/24 19:27 12/26/24 19:27 A&P Assessment and plan (1) Psychosis: (2) Adjustment disorder: (3) Cluster B personality disorder: (4) Chronic post-traumatic stress disorder: (5) Amphetamine addiction: (6) Anxiety and depression: (7) Withdrawal from methamphetamine: (8) Methamphetamine intoxication: Plan This is a 34-year-old white female known from past admissions with reported extended history of trauma, intellectual disability, significant addiction and 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 Continue invega 6mg daily. Patient given invega IM 234mg on 01/07/25. Next Invega IM 156mg ordered for 01/13/25. 2. Patient now on 21 day hold. 3. Obtain collateral information. 4. Encourage individual, group and milieu therapy. 5. Continue every 15 minute checks for safety. 6. Encourage sober living treatment after discharge at at the highest level of care to which she is willing to commit. 7. Patient to enter [facility] program. Still showing slight improvement in last two weeks on invega. PDMP PDMP Reviewed: Not Reviewed Involuntary Hold Information Hold Status: Legal Status: 21 Day Hold Date/Time Hold Expires: 01/24/25 96 Hour Hold: 96 Hour Involuntary Admission: No Attestations NPU Medical Necessity Statement*: Inpatient hospitalization is medically necessary and the clinically appropriate intervention at this time. We will monitor medications and make changes as indicated. The patient's likely length of stay 5-7 days. Coding Level of Care Code Acute Code for [facility] Fwd Diagnoses Psychosis F29 Adjustment disorder F43.20 Cluster B personality disorder F60.89 Chronic post-traumatic stress disorder F43.12 Amphetamine addiction F15.20 Anxiety and depression F41.9; F32.9 Withdrawal from methamphetamine F15.93 Methamphetamine intoxication F15.929
[2025-01-12 20:45] VITALS: BP 100/56; PULSE 89; RESP 18; TEMP 36.6; O2SAT 97
[2025-01-13 06:00] VITALS: BP 94/69; PULSE 128; RESP 21; TEMP 36.7; O2SAT 100
--- NOTE | 2025-01-13 08:32 | P.NPUPN_ITS ---
Subjective NPU 2 Subjective: Patient presented today reporting that she is doing okay and she is now become more focused on discharge. We discussed the risks, benefits and alternatives of getting her second Invega Sustenna injection of 156 mg to the deltoid as it is a loading dose. She understood and agreed to proceed as is documented in this note. We discussed that after she gets this injection we will be purely based on how she is functioning her discharge date. She continues to say she has not have any plans to return to the person that we had been discussing her being with. She denied any side effects to the medication. Mental Status Exam 2 MSE Comments: This is a slender white female in hospital scrubs with poor grooming and eye contact. Poor dentition/absent teeth no abnormal movements except for psychomotor retardation. Cooperative with exam in mild distress. Speech was more normal rate and volume and limited productivity. Mood described as a little better, affect congruent. Thought process organized. Thought content: Patient denied any suicidal or homicidal ideation, though there were no reports of delusions but patient was quite guarded, she endorses auditory hallucinations and occasional visual hallucinations. Attention and concentration appeared limited and memory appeared unreliable but none were formally tested. She is alert and oriented x person and place. Insight, judgment and impulse control were impaired. Vitals/I&O/Wt Last Vital Signs Temp 98.1 F 01/13/25 06:00 Pulse 128 H 01/13/25 06:00 Resp 21 H 01/13/25 06:00 BP 94/69 01/13/25 06:00 Pulse Ox 100 01/13/25 06:00 O2 Del Method Room Air 01/13/25 06:00 Data NPU 12/26/24 19:27 12/26/24 19:27 A&P Assessment and plan (1) Psychosis: (2) Adjustment disorder: (3) Cluster B personality disorder: (4) Chronic post-traumatic stress disorder: (5) Amphetamine addiction: (6) Anxiety and depression: (7) Withdrawal from methamphetamine: (8) Methamphetamine intoxication: Plan This is a 44-year-old white female known from past admissions with reported extended history of trauma, intellectual disability, significant addiction and 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 Continue invega 6mg daily. Patient given invega IM 234mg on 01/07/25. Next Invega IM 156mg ordered for today, 01/13/25. 2. Patient now on 21 day hold. 3. Obtain collateral information. 4. Encourage individual, group and milieu therapy. 5. Continue every 15 minute checks for safety. 6. Encourage sober living treatment after discharge at at the highest level of care to which she is willing to commit. 7. Patient to enter [facility] program. Still showing slight improvement in last two weeks on invega. PDMP PDMP Reviewed: Not Reviewed Involuntary Hold Information 2 Hold Status: Legal Status: 21 Day Hold Date/Time Hold Expires: 01/24/25 96 Hour Hold: 96 Hour Involuntary Admission: No Attestations NPU 2 Medical Necessity Statement*: Inpatient hospitalization is medically necessary and the clinically appropriate intervention at this time. We will monitor medications and make changes as indicated. The patient's likely length of stay 4-6 days. Coding Level of Care Code Acute Code for [facility] Fwd Diagnoses Psychosis F29 Adjustment disorder F43.20 Cluster B personality disorder F60.89 Chronic post-traumatic stress disorder F43.12 Amphetamine addiction F15.20 Anxiety and depression F41.9; F32.9 Withdrawal from methamphetamine F15.93 Methamphetamine intoxication F15.929
[2025-01-13] MEDS: paliperidone ER 6 mg Tablet PO (08:35)
[2025-01-13] MEDS: paliperidone palmitate 156 mg Syringe IM (08:53)
[2025-01-13 14:00] VITALS: BP 117/81; PULSE 91; RESP 16; TEMP 36.7; O2SAT 100
--- NOTE | 2025-01-13 15:36 | PC.NURSE ---
Pt has been asked to stay out of other Pt rooms by this FIELD SALES SPECIALIST at least 3 times today. While rounding this FIELD SALES SPECIALIST found Pt hiding behind the door of another Pt. room. Pt. was told to stay out again.
[2025-01-13] MEDS: diphenhydrAMINE 50 mg Capsule PO (15:38)
[2025-01-13] MEDS: LORazepam 2 mg Tablet PO (15:38)
[2025-01-13] MEDS: haloperidol 5 mg Tablet PO (15:38)
[2025-01-13] MEDS: nicotine 4 mg lozenge MUCOUS MEM (15:56)
--- NOTE | 2025-01-13 16:42 | PC.NURSE ---
Pt handed this nurse a piece of trash through the nurses station window, a few moments later pt handed another piece of trash to this nurse, when asked why the pt replied I thought that we were playing a game . Pt was also acting bizarre and starring off into space, while standing in her room. Pt was given oral meds for Visual and Auditory hallucinations.
--- NOTE | 2025-01-13 17:59 | PC.NURSE ---
Pt stated that she heard through the TV that she was leaving in 31 minutes. Redirected pt to read in her room at this time.
[2025-01-13 21:36] VITALS: BP 91/55; PULSE 88; RESP 16; O2SAT 100
[2025-01-14 06:00] VITALS: BP 106/72; PULSE 105; RESP 17; TEMP 36.4; O2SAT 100
[2025-01-14] MEDS: paliperidone ER 6 mg Tablet PO (08:29)
[2025-01-14] MEDS: nicotine 4 mg lozenge MUCOUS MEM (08:29)
[2025-01-14 14:00] VITALS: BP 102/71; PULSE 117; RESP 17; TEMP 37; O2SAT 100
--- NOTE | 2025-01-14 17:33 | P.NPUPN_ITS ---
Subjective NPU 2 Subjective: Patient presented today reporting that things are going okay. She continues to struggle on the unit with odd and erratic behavior. She seems to be improving cognitively having conversations about making good decisions in relation to postdischarge. She received her second injection yesterday and denies any side effects of that her current medication. Mental Status Exam 2 MSE Comments: This is a slender white female in hospital scrubs with poor grooming and eye contact. Poor dentition/absent teeth no abnormal movements except for psychomotor retardation. Cooperative with exam in mild distress. Speech was more normal rate and volume and limited productivity. Mood described as a little better, affect congruent. Thought process organized. Thought content: Patient denied any suicidal or homicidal ideation, though there were no reports of delusions but patient was quite guarded, she endorses auditory hallucinations and occasional visual hallucinations. Attention and concentration appeared limited and memory appeared unreliable but none were formally tested. She is alert and oriented x person and place. Insight, judgment and impulse control were impaired. Vitals/I&O/Wt Last Vital Signs Temp 98.6 F 01/14/25 14:00 Pulse 117 H 01/14/25 14:00 Resp 17 01/14/25 14:00 BP 102/71 01/14/25 14:00 Pulse Ox 100 01/14/25 14:00 O2 Del Method Room Air 01/13/25 14:00 Weight last 48 hrs Weight 64.455 kg Data NPU 12/26/24 19:27 12/26/24 19:27 A&P Assessment and plan (1) Psychosis: (2) Adjustment disorder: (3) Cluster B personality disorder: (4) Chronic post-traumatic stress disorder: (5) Amphetamine addiction: (6) Anxiety and depression: (7) Withdrawal from methamphetamine: (8) Methamphetamine intoxication: Plan This is a 44-year-old white female known from past admissions with reported extended history of trauma, intellectual disability, significant addiction and 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 Continue invega 6mg daily. Patient given invega IM 234mg on 01/07/25. Next Invega IM 156mg ordered for today, 01/13/25. 2. Patient now on 21 day hold. 3. Obtain collateral information. 4. Encourage individual, group and milieu therapy. 5. Continue every 15 minute checks for safety. 6. Encourage sober living treatment after discharge at at the highest level of care to which she is willing to commit. 7. Patient to enter [facility] program. Still showing slight improvement in last two weeks on invega. PDMP PDMP Reviewed: Not Reviewed Involuntary Hold Information 2 Hold Status: Legal Status: 21 Day Hold Date/Time Hold Expires: 01/24/25 96 Hour Hold: 96 Hour Involuntary Admission: No Attestations NPU 2 Medical Necessity Statement*: Inpatient hospitalization is medically necessary and the clinically appropriate intervention at this time. We will monitor medications and make changes as indicated. The patient's likely length of stay 4-6 days. Coding Level of Care Code Acute Code for [facility] Fwd Diagnoses Psychosis F29 Adjustment disorder F43.20 Cluster B personality disorder F60.89 Chronic post-traumatic stress disorder F43.12 Amphetamine addiction F15.20 Anxiety and depression F41.9; F32.9 Withdrawal from methamphetamine F15.93 Methamphetamine intoxication F15.929
[2025-01-14] MEDS: haloperidol 5 mg Tablet PO (17:42)
[2025-01-14] MEDS: LORazepam 2 mg Tablet PO (17:42)
[2025-01-14] MEDS: diphenhydrAMINE 50 mg Capsule PO (17:42)
[2025-01-14 22:00] VITALS: RESP 16
[2025-01-15 06:00] VITALS: BP 103/74; PULSE 107; RESP 18; O2SAT 96
[2025-01-15] MEDS: benztropine 1 mg Tablet PO (08:12)
[2025-01-15] MEDS: paliperidone ER 6 mg Tablet PO (08:12)
[2025-01-15] MEDS: nicotine 21 mg Patch 1 PATCH TRANSDERMA (08:12)
[2025-01-15 10:02] LABS: Bilirubin Urine Negative (Negative); Blood Urine Negative (Negative); Glucose Urine UA Negative (Normal); Ketones Urine Negative (Negative); Leukocyte Esterase Urine Negative (Negative); Nitrate Urine Negative (Negative); Protein Urine Negative (Negative); Specific Gravity, Urine 1.013 (1.005-1.030); Urine Appearance Clear (CLEAR); Urine Color Yellow (Yellow)
[2025-01-15 10:04] LABS: Add Urine Microscopic? YES; Bacteria Urine None Seen /hpf; Hyaline Casts Urine 2.05 /lpf; RBC Urine 0-2 /hpf (0-2); Squamous Epithelial Cell Urine 0-5 /hpf (0-5); WBC Urine 0-5 /hpf (0-5)
[2025-01-15 14:00] VITALS: BP 100/67; PULSE 117; RESP 16; TEMP 36.6; O2SAT 100
--- NOTE | 2025-01-15 17:58 | P.NPUPN_ITS ---
Subjective NPU 2 Subjective: Patient presented today reporting that she is doing okay. She continued to be perseverating about discharge but we discussed the importance of her dropping some of the behaviors that have plagued her over the recent days. Specifically behaviors like sticking things in the toilet and flushing it. Other purposeless behaviors that were of no utility but she could not explain them. She momentarily had increased observation but now is currently doing better at regular every 15 minute checks. She denied any side effects of the medication. Mental Status Exam 2 MSE Comments: This is a slender white female in hospital scrubs with poor grooming and eye contact. Poor dentition/absent teeth no abnormal movements except for psychomotor retardation. Cooperative with exam in mild distress. Speech was more normal rate and volume and limited productivity. Mood described as a little better, affect congruent. Thought process organized. Thought content: Patient denied any suicidal or homicidal ideation, though there were no reports of delusions but patient was quite guarded, she endorses auditory hallucinations and occasional visual hallucinations. Attention and concentration appeared limited and memory appeared unreliable but none were formally tested. She is alert and oriented x person and place. Insight, judgment and impulse control were impaired. Vitals/I&O/Wt Last Vital Signs Temp 97.4 F L 01/15/25 19:21 Pulse 113 H 01/15/25 19:21 Resp 18 01/15/25 19:21 BP 111/71 01/15/25 19:21 Pulse Ox 100 01/15/25 19:21 O2 Del Method Room Air 01/15/25 19:21 Weight last 48 hrs Weight 64.455 kg Data NPU 12/26/24 19:27 12/26/24 19:27 A&P Assessment and plan (1) Psychosis: (2) Adjustment disorder: (3) Cluster B personality disorder: (4) Chronic post-traumatic stress disorder: (5) Amphetamine addiction: (6) Anxiety and depression: (7) Withdrawal from methamphetamine: (8) Methamphetamine intoxication: Plan This is a 44-year-old white female known from past admissions with reported extended history of trauma, intellectual disability, significant addiction and 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 Continue invega 6mg daily. Patient given invega IM 234mg on 01/07/25. Next Invega IM 156mg given 01/13/25. 2. Patient now on 21 day hold. 3. Obtain collateral information. 4. Encourage individual, group and milieu therapy. 5. Continue every 15 minute checks for safety. 6. Encourage sober living treatment after discharge at at the highest level of care to which she is willing to commit. 7. Patient to enter [facility] program. Still showing slight improvement in last two weeks on invega. PDMP PDMP Reviewed: Not Reviewed Involuntary Hold Information 2 Hold Status: Legal Status: 21 Day Hold Date/Time Hold Expires: 01/24/25 96 Hour Hold: 96 Hour Involuntary Admission: No Attestations NPU 2 Medical Necessity Statement*: Inpatient hospitalization is medically necessary and the clinically appropriate intervention at this time. We will monitor medications and make changes as indicated. The patient's likely length of stay 3-5 days. Coding Level of Care Code Acute Code for g Fwd Diagnoses Psychosis F29 Adjustment disorder F43.20 Cluster B personality disorder F60.89 Chronic post-traumatic stress disorder F43.12 Amphetamine addiction F15.20 Anxiety and depression F41.9; F32.9 Withdrawal from methamphetamine F15.93 Methamphetamine intoxication F15.929
[2025-01-15 19:21] VITALS: BP 111/71; PULSE 113; RESP 18; TEMP 36.3; O2SAT 100
[2025-01-16 06:00] VITALS: BP 97/69; PULSE 137; RESP 18; TEMP 36.4; O2SAT 98
[2025-01-16] MEDS: ondansetron 4 MG Tablet PO (07:48)
[2025-01-16] MEDS: nicotine 21 mg Patch 1 PATCH TRANSDERMA (08:20)
[2025-01-16] MEDS: paliperidone ER 6 mg Tablet PO (08:20)
[2025-01-16 11:04] LABS: HCG Qualitative Urine. Negative (Negative)
[2025-01-16 14:00] VITALS: BP 106/72; PULSE 86; RESP 16; TEMP 36.6; O2SAT 100
--- NOTE | 2025-01-16 17:40 | P.NPUPN_ITS ---
Subjective NPU 2 Subjective: Patient presented today reporting that she is okay. She continues to perseverate over discharge but not in an aggressive way. She is continues to inquire as to the likelihood that discharge will happen sooner rather than later. Otherwise she continues to be somewhat aimless and purposeless per staff reports and direct observation. She denied any side effects to the medication. Mental Status Exam 2 MSE Comments: This is a slender white female in hospital scrubs with poor grooming and eye contact. Poor dentition/absent teeth no abnormal movements except for psychomotor retardation. Cooperative with exam in mild distress. Speech was more normal rate and volume and limited productivity. Mood described as a little better, affect congruent. Thought process organized. Thought content: Patient denied any suicidal or homicidal ideation, though there were no reports of delusions but patient was quite guarded, she endorses auditory hallucinations and occasional visual hallucinations. Attention and concentration appeared limited and memory appeared unreliable but none were formally tested. She is alert and oriented x person and place. Insight, judgment and impulse control were impaired. Vitals/I&O/Wt Last Vital Signs Temp 98 F 01/16/25 19:32 Pulse 104 H 01/16/25 19:32 Resp 18 01/16/25 19:32 BP 103/61 01/16/25 19:32 Pulse Ox 99 01/16/25 19:32 O2 Del Method Room Air 01/16/25 19:32 Data NPU 12/26/24 19:27 12/26/24 19:27 A&P Assessment and plan (1) Psychosis: (2) Adjustment disorder: (3) Cluster B personality disorder: (4) Chronic post-traumatic stress disorder: (5) Amphetamine addiction: (6) Anxiety and depression: (7) Withdrawal from methamphetamine: (8) Methamphetamine intoxication: Plan This is a 44-year-old white female known from past admissions with reported extended history of trauma, intellectual disability, significant addiction and 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 Continue invega 6mg daily. Patient given invega IM 234mg on 01/07/25. Next Invega IM 156mg given 01/13/25. 2. Patient now on 21 day hold. 3. Obtain collateral information. 4. Encourage individual, group and milieu therapy. 5. Continue every 15 minute checks for safety. 6. Encourage sober living treatment after discharge at at the highest level of care to which she is willing to commit. 7. Patient to enter [facility] program. Still showing slight improvement in last two weeks on invega. B. Obtain REBECCA evaluation for assessment of cognitive functioning to assist in determination of readiness for discharge. PDMP PDMP Reviewed: Not Reviewed Involuntary Hold Information 2 Hold Status: Legal Status: 21 Day Hold Date/Time Hold Expires: 01/24/25 96 Hour Hold: 96 Hour Involuntary Admission: No Attestations NPU 2 Medical Necessity Statement*: Inpatient hospitalization is medically necessary and the clinically appropriate intervention at this time. We will monitor medications and make changes as indicated. The patient's likely length of stay 3-5 days. Coding Level of Care Code Acute Code for g Fwd Diagnoses Psychosis F29 Adjustment disorder F43.20 Cluster B personality disorder F60.89 Chronic post-traumatic stress disorder F43.12 Amphetamine addiction F15.20 Anxiety and depression F41.9; F32.9 Withdrawal from methamphetamine F15.93 Methamphetamine intoxication F15.929
[2025-01-16 19:32] VITALS: BP 103/61; PULSE 104; RESP 18; TEMP 36.6; O2SAT 99
[2025-01-17 06:00] VITALS: BP 102/67; PULSE 107; RESP 18; TEMP 36.6; O2SAT 97
[2025-01-17] MEDS: benztropine 1 mg Tablet PO (08:49)
[2025-01-17] MEDS: paliperidone ER 6 mg Tablet PO (08:49)
--- NOTE | 2025-01-17 08:51 | PC.NURSE ---
Pt taking morning meds at the nurses station, puts in mouth then spit out into hand and threw them away. Pt stated that she didn't want to take the invega. Trash was removed from the [facility] and the medications were readministered to the pt. See MAR for administration of meds.
--- NOTE | 2025-01-17 09:02 | PC.NURSE ---
pt found in bathroom throwing up medication in [facility]. will have patient sit for hour insite of nursing staff upon administering medication in the future.
[2025-01-17 14:00] VITALS: BP 106/75; PULSE 115; RESP 18; TEMP 36.8; O2SAT 96
--- NOTE | 2025-01-17 18:25 | P.NPUPN_ITS ---
Subjective NPU 2 Subjective: Patient presented today reporting that things are going as well as can be expected. She continues to have cognitive limitations per staff reports and direct observation. We discussed the fact that she did very poorly on the REBECCA and therefore we have significant concerns about her ability for independence and the risk for exploitation. We discussed the risks, benefits and alternatives of filing for a level 2 and looking towards guardianship and she understood and agreed to proceed as is documented in this note. Mental Status Exam 2 MSE Comments: This is a slender white female in hospital scrubs with poor grooming and eye contact. Poor dentition/absent teeth no abnormal movements except for psychomotor retardation. Cooperative with exam in mild distress. Speech was more normal rate and volume and limited productivity. Mood described as a little better, affect congruent. Thought process organized. Thought content: Patient denied any suicidal or homicidal ideation, though there were no reports of delusions but patient was quite guarded, she endorses auditory hallucinations and occasional visual hallucinations. Attention and concentration appeared limited and memory appeared unreliable but none were formally tested. She is alert and oriented x person and place. Insight, judgment and impulse control were impaired. Vitals/I&O/Wt Last Vital Signs Temp 98.5 F 01/18/25 06:00 Pulse 101 H 01/18/25 06:00 Resp 20 H 01/18/25 06:00 BP 102/69 01/18/25 06:00 Pulse Ox 97 01/18/25 06:00 O2 Del Method Room Air 01/18/25 06:00 01/17/25 01/17/25 01/18/25 14:59 22:59 06:59 Intake Total 240 / 240 0 / 240 Balance 240 / 240 0 / 240 Data NPU 12/26/24 19:27 12/26/24 19:27 A&P Assessment and plan (1) Psychosis: (2) Adjustment disorder: (3) Cluster B personality disorder: (4) Chronic post-traumatic stress disorder: (5) Amphetamine addiction: (6) Anxiety and depression: (7) Withdrawal from methamphetamine: (8) Methamphetamine intoxication: Plan This is a 44-year-old white female known from past admissions with reported extended history of trauma, intellectual disability, significant addiction and 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 Continue invega 6mg daily. Patient given invega IM 234mg on 01/07/25. Next Invega IM 156mg given 01/13/25. 2. Patient now on 21 day hold. 3. Obtain collateral information. 4. Encourage individual, group and milieu therapy. 5. Continue every 15 minute checks for safety. 6. Encourage sober living treatment after discharge at at the highest level of care to which she is willing to commit. 7. Patient to enter [facility] program. Still showing slight improvement in last two weeks on invega. B. Obtain REBECCA evaluation for assessment of cognitive functioning to assist in determination of readiness for discharge. REBECCA shows needs in 11 of 13 domains and so we will file for level 2 and likely pursue guardianship. PDMP PDMP Reviewed: Not Reviewed Involuntary Hold Information 2 Hold Status: Legal Status: 21 Day Hold Date/Time Hold Expires: 01/24/25 96 Hour Hold: 96 Hour Involuntary Admission: No Attestations NPU 2 Medical Necessity Statement*: Inpatient hospitalization is medically necessary and the clinically appropriate intervention at this time. We will monitor medications and make changes as indicated. The patient's likely length of stay 7-10 days. Coding Level of Care Code Acute Code for Chg Fwd Diagnoses Psychosis F29 Adjustment disorder F43.20 Cluster B personality disorder F60.89 Chronic post-traumatic stress disorder F43.12 Amphetamine addiction F15.20 Anxiety and depression F41.9; F32.9 Withdrawal from methamphetamine F15.93 Methamphetamine intoxication F15.929
[2025-01-17 20:04] VITALS: BP 89/54; PULSE 84; RESP 18; TEMP 36.8; O2SAT 97
[2025-01-18 06:00] VITALS: BP 102/69; PULSE 101; RESP 20; TEMP 36.9; O2SAT 97
[2025-01-18] MEDS: paliperidone ER 6 mg Tablet PO (08:46)
[2025-01-18] MEDS: nicotine 2 mg Gum BUCCAL (08:46)
[2025-01-18] MEDS: OLANZapine 5 mg ODT PO (12:15)
--- NOTE | 2025-01-18 13:17 | PC.NURSE ---
Pt just walked up the [facility] naked to the nurses station. This nurse quickly covered her body and escorted pt back to her room. Encouraged pt to get dressed, pt complied. When asked why she was unclothed pt began to tear up, and couldn't answer. Pt was given a dose of 5mg Zyprexa.
[2025-01-18 14:00] VITALS: BP 107/73; PULSE 95; RESP 16; TEMP 36.7; O2SAT 94
--- NOTE | 2025-01-18 17:49 | P.NPUPN_ITS ---
Subjective NPU 2 Subjective: Patient presented today reporting that things were okay. She continues to seem somewhat ambivalent about exactly what the level 2 means and what this will mean as far as things moving forward. She continues to seem confused but having less erratic behavior as she has gotten the second shot of the Invega Sustenna. She denied any side effects to medication. Mental Status Exam 2 MSE Comments: This is a slender white female in hospital scrubs with poor grooming and eye contact. Poor dentition/absent teeth no abnormal movements except for psychomotor retardation. Cooperative with exam in mild distress. Speech was more normal rate and volume and limited productivity. Mood described as a little better, affect congruent. Thought process organized. Thought content: Patient denied any suicidal or homicidal ideation, though there were no reports of delusions but patient was quite guarded, she endorses auditory hallucinations and occasional visual hallucinations. Attention and concentration appeared limited and memory appeared unreliable but none were formally tested. She is alert and oriented x person and place. Insight, judgment and impulse control were impaired. Vitals/I&O/Wt Last Vital Signs Temp 98.1 F 01/18/25 14:00 Pulse 95 01/18/25 14:00 Resp 16 01/18/25 14:00 BP 107/73 01/18/25 14:00 Pulse Ox 94 01/18/25 14:00 O2 Del Method Room Air 01/18/25 06:00 Data NPU 12/26/24 19:27 12/26/24 19:27 A&P Assessment and plan (1) Psychosis: (2) Adjustment disorder: (3) Cluster B personality disorder: (4) Chronic post-traumatic stress disorder: (5) Amphetamine addiction: (6) Anxiety and depression: (7) Withdrawal from methamphetamine: (8) Methamphetamine intoxication: Plan This is a 44-year-old white female known from past admissions with reported extended history of trauma, intellectual disability, significant addiction and 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 Continue invega 6mg daily. Patient given invega IM 234mg on 01/07/25. Next Invega IM 156mg given 01/13/25. 2. Patient now on 21 day hold. 3. Obtain collateral information. 4. Encourage individual, group and milieu therapy. 5. Continue every 15 minute checks for safety. 6. Encourage sober living treatment after discharge at at the highest level of care to which she is willing to commit. 7. Patient to enter [facility] program. Still showing slight improvement in last two weeks on invega. B. Obtain REBECCA evaluation for assessment of cognitive functioning to assist in determination of readiness for discharge. REBECCA shows needs in 11 of 13 domains and so we will file for level 2 and likely pursue guardianship. PDMP PDMP Reviewed: Not Reviewed Involuntary Hold Information 2 Hold Status: Legal Status: 21 Day Hold Date/Time Hold Expires: 01/24/25 96 Hour Hold: 96 Hour Involuntary Admission: No Attestations NPU 2 Medical Necessity Statement*: Inpatient hospitalization is medically necessary and the clinically appropriate intervention at this time. We will monitor medications and make changes as indicated. The patient's likely length of stay 7-10 days. Coding Level of Care Code Acute Code for g Fwd Diagnoses Psychosis F29 Adjustment disorder F43.20 Cluster B personality disorder F60.89 Chronic post-traumatic stress disorder F43.12 Amphetamine addiction F15.20 Anxiety and depression F41.9; F32.9 Withdrawal from methamphetamine F15.93 Methamphetamine intoxication F15.929
[2025-01-18 20:15] VITALS: BP 90/52; PULSE 92; RESP 16; TEMP 37.1; O2SAT 95
[2025-01-19 06:00] VITALS: BP 93/67; PULSE 97; RESP 18; TEMP 36.8; O2SAT 98
--- NOTE | 2025-01-19 07:20 | P.NPUPN_ITS ---
Subjective NPU 2 Subjective: Patient presented today reporting that she is okay. Continues to be fairly isolative but is missing her in her room laying in bed each time. She has no complaints and seems to be mostly aimless and purposeless. She is no longer asking about discharge and seems to understand that placement is the plan. She denied any side effects to her medication. Mental Status Exam 2 MSE Comments: This is a slender white female in hospital scrubs with poor grooming and eye contact. Poor dentition/absent teeth no abnormal movements except for psychomotor retardation. Cooperative with exam in mild distress. Speech was more normal rate and volume and limited productivity. Mood described as a little better, affect congruent. Thought process organized. Thought content: Patient denied any suicidal or homicidal ideation, though there were no reports of delusions but patient was quite guarded, she endorses auditory hallucinations and occasional visual hallucinations. Attention and concentration appeared limited and memory appeared unreliable but none were formally tested. She is alert and oriented x person and place. Insight, judgment and impulse control were impaired. Vitals/I&O/Wt Last Vital Signs Temp 98.2 F 01/19/25 06:00 Pulse 97 01/19/25 06:00 Resp 18 01/19/25 06:00 BP 93/67 01/19/25 06:00 Pulse Ox 98 01/19/25 06:00 O2 Del Method Room Air 01/19/25 06:00 Data NPU 12/26/24 19:27 12/26/24 19:27 A&P Assessment and plan (1) Psychosis: (2) Adjustment disorder: (3) Cluster B personality disorder: (4) Chronic post-traumatic stress disorder: (5) Amphetamine addiction: (6) Anxiety and depression: (7) Withdrawal from methamphetamine: (8) Methamphetamine intoxication: Plan This is a 44-year-old white female known from past admissions with reported extended history of trauma, intellectual disability, significant addiction and 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 Continue invega 6mg daily. Patient given invega IM 234mg on 01/07/25. Next Invega IM 156mg given 01/13/25. 2. Patient now on 21 day hold. 3. Obtain collateral information. 4. Encourage individual, group and milieu therapy. 5. Continue every 15 minute checks for safety. 6. Encourage sober living treatment after discharge at at the highest level of care to which she is willing to commit. 7. Patient to enter [facility] program. Still showing slight improvement in last two weeks on invega. B. Obtain REBECCA evaluation for assessment of cognitive functioning to assist in determination of readiness for discharge. REBECCA shows needs in 11 of 13 domains and so we will file for level 2 and likely pursue guardianship. PDMP PDMP Reviewed: Not Reviewed Involuntary Hold Information 2 Hold Status: Legal Status: 21 Day Hold Date/Time Hold Expires: 01/24/25 96 Hour Hold: 96 Hour Involuntary Admission: No Attestations NPU 2 Medical Necessity Statement*: Inpatient hospitalization is medically necessary and the clinically appropriate intervention at this time. We will monitor medications and make changes as indicated. The patient's likely length of stay 7-10 days. Coding Level of Care Code Acute Code for g Fwd Diagnoses Psychosis F29 Adjustment disorder F43.20 Cluster B personality disorder F60.89 Chronic post-traumatic stress disorder F43.12 Amphetamine addiction F15.20 Anxiety and depression F41.9; F32.9 Withdrawal from methamphetamine F15.93 Methamphetamine intoxication F15.929
[2025-01-19] MEDS: paliperidone ER 6 mg Tablet PO (08:18)
[2025-01-19 14:00] VITALS: BP 112/67; PULSE 74; RESP 16; TEMP 37; O2SAT 99
[2025-01-19] MEDS: acetaminophen 325 mg Tablet 650 MG PO (14:16)
[2025-01-19 20:17] VITALS: BP 103/67; PULSE 100; RESP 16; TEMP 37; O2SAT 97
[2025-01-20 06:00] VITALS: BP 102/72; PULSE 87; RESP 16; TEMP 36.7; O2SAT 100
[2025-01-20] MEDS: paliperidone ER 6 mg Tablet PO (08:21)
[2025-01-20 14:00] VITALS: BP 112/74; PULSE 95; RESP 16; TEMP 36.6; O2SAT 100
[2025-01-20] MEDS: nicotine 4 mg lozenge MUCOUS MEM ×2 (15:14→19:47)
--- NOTE | 2025-01-20 18:59 | P.NPUPN_ITS ---
Subjective NPU 2 Subjective: Patient presented today reporting that things are going fine. She continued to be confused and somewhat aimless and purposeless in her behavior but she was more directed in her inquiring about discharge. We continue to review the plan for consideration for guardianship and possible placement which she did not seem to really follow but she denied any problems with the medication and denied any psychotic symptoms. Mental Status Exam 2 MSE Comments: This is a slender white female in hospital scrubs with poor grooming and eye contact. Poor dentition/absent teeth no abnormal movements except for psychomotor retardation. Cooperative with exam in mild distress. Speech was more normal rate and volume and limited productivity. Mood described as a little better, affect congruent. Thought process organized. Thought content: Patient denied any suicidal or homicidal ideation, though there were no reports of delusions but patient was quite guarded, she endorses auditory hallucinations and occasional visual hallucinations. Attention and concentration appeared limited and memory appeared unreliable but none were formally tested. She is alert and oriented x person and place. Insight, judgment and impulse control were impaired. Vitals/I&O/Wt Last Vital Signs Temp 97.5 F L 01/20/25 19:38 Pulse 78 01/20/25 19:38 Resp 16 01/20/25 19:38 BP 118/77 01/20/25 19:38 Pulse Ox 100 01/20/25 19:38 O2 Del Method Room Air 01/20/25 14:00 Weight last 48 hrs Weight 68.946 kg Data NPU 12/26/24 19:27 12/26/24 19:27 A&P Assessment and plan (1) Psychosis: (2) Adjustment disorder: (3) Cluster B personality disorder: (4) Chronic post-traumatic stress disorder: (5) Amphetamine addiction: (6) Anxiety and depression: (7) Withdrawal from methamphetamine: (8) Methamphetamine intoxication: Plan This is a 44-year-old white female known from past admissions with reported extended history of trauma, intellectual disability, significant addiction and 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 Continue invega 6mg daily. Patient given invega IM 234mg on 01/07/25. Next Invega IM 156mg given 01/13/25. 2. Patient now on 21 day hold. 3. Obtain collateral information. 4. Encourage individual, group and milieu therapy. 5. Continue every 15 minute checks for safety. 6. Encourage sober living treatment after discharge at at the highest level of care to which she is willing to commit. 7. Patient to enter [facility] program. Still showing slight improvement in last two weeks on invega. B. Obtain REBECCA evaluation for assessment of cognitive functioning to assist in determination of readiness for discharge. REBECCA shows needs in 11 of 13 domains and so we will file for level 2 and likely pursue guardianship. PDMP PDMP Reviewed: Not Reviewed Involuntary Hold Information 2 Hold Status: Legal Status: 21 Day Hold Date/Time Hold Expires: 01/24/25 96 Hour Hold: 96 Hour Involuntary Admission: No Attestations NPU 2 Medical Necessity Statement*: Inpatient hospitalization is medically necessary and the clinically appropriate intervention at this time. We will monitor medications and make changes as indicated. The patient's likely length of stay 7-10 days. Coding Level of Care Code Acute Code for Chg Fwd Diagnoses Psychosis F29 Adjustment disorder F43.20 Cluster B personality disorder F60.89 Chronic post-traumatic stress disorder F43.12 Amphetamine addiction F15.20 Anxiety and depression F41.9; F32.9 Withdrawal from methamphetamine F15.93 Methamphetamine intoxication F15.929
[2025-01-20 19:38] VITALS: BP 118/77; PULSE 78; RESP 16; TEMP 36.4; O2SAT 100
[2025-01-21] MEDS: acetaminophen 325 mg Tablet 650 MG PO (04:54)
[2025-01-21 06:00] VITALS: BP 98/71; PULSE 88; RESP 18; O2SAT 100
[2025-01-21] MEDS: nicotine 4 mg lozenge MUCOUS MEM ×5 (06:35→19:13)
[2025-01-21] MEDS: paliperidone ER 6 mg Tablet PO (07:22)
[2025-01-21 14:00] VITALS: BP 105/73; PULSE 95; RESP 16; TEMP 37.2; O2SAT 98
--- NOTE | 2025-01-21 15:27 | P.NPUPN_ITS ---
Subjective NPU 2 Subjective: Patient presented today reporting she is doing okay. She was wandering around at 1 point and looking in the crevices of the chair rails. When asked why she was doing that she said something told her to look in there and maybe there would be money. Otherwise she continued this purposeless aimless meandering per staff reports and direct observation. She denied any side effects to her medication. Mental Status Exam 2 MSE Comments: This is a slender white female in hospital scrubs with poor grooming and eye contact. Poor dentition/absent teeth no abnormal movements except for psychomotor retardation. Cooperative with exam in mild distress. Speech was more normal rate and volume and limited productivity. Mood described as a little better, affect congruent. Thought process organized. Thought content: Patient denied any suicidal or homicidal ideation, though there were no reports of delusions but patient was quite guarded, she endorses auditory hallucinations and occasional visual hallucinations. Attention and concentration appeared limited and memory appeared unreliable but none were formally tested. She is alert and oriented x person and place. Insight, judgment and impulse control were impaired. Vitals/I&O/Wt Last Vital Signs Temp 99 F 01/21/25 14:00 Pulse 95 01/21/25 14:00 Resp 16 01/21/25 14:00 BP 105/73 01/21/25 14:00 Pulse Ox 98 01/21/25 14:00 O2 Del Method Room Air 01/21/25 14:00 Weight last 48 hrs Weight 68.946 kg Data NPU 12/26/24 19:27 12/26/24 19:27 A&P Assessment and plan (1) Psychosis: (2) Adjustment disorder: (3) Cluster B personality disorder: (4) Chronic post-traumatic stress disorder: (5) Amphetamine addiction: (6) Anxiety and depression: (7) Withdrawal from methamphetamine: (8) Methamphetamine intoxication: Plan This is a 44-year-old white female known from past admissions with reported extended history of trauma, intellectual disability, significant addiction and 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 Continue invega 6mg daily. Patient given invega IM 234mg on 01/07/25. Next Invega IM 156mg given 01/13/25. 2. Patient now on 21 day hold. 3. Obtain collateral information. 4. Encourage individual, group and milieu therapy. 5. Continue every 15 minute checks for safety. 6. Encourage sober living treatment after discharge at at the highest level of care to which she is willing to commit. 7. Patient to enter [facility] program. Still showing slight improvement in last two weeks on invega. B. Obtain REBECCA evaluation for assessment of cognitive functioning to assist in determination of readiness for discharge. REBECCA shows needs in 11 of 13 domains and so we will file for level 2 and likely pursue guardianship. PDMP PDMP Reviewed: Not Reviewed Involuntary Hold Information 2 Hold Status: Legal Status: 21 Day Hold Date/Time Hold Expires: 01/24/25 96 Hour Hold: 96 Hour Involuntary Admission: No Attestations NPU 2 Medical Necessity Statement*: Inpatient hospitalization is medically necessary and the clinically appropriate intervention at this time. We will monitor medications and make changes as indicated. The patient's likely length of stay 7-10 days. Coding Level of Care Code Acute Code for [facility] Fwd Diagnoses Psychosis F29 Adjustment disorder F43.20 Cluster B personality disorder F60.89 Chronic post-traumatic stress disorder F43.12 Amphetamine addiction F15.20 Anxiety and depression F41.9; F32.9 Withdrawal from methamphetamine F15.93 Methamphetamine intoxication F15.929
[2025-01-21 19:35] VITALS: BP 111/74; PULSE 83; RESP 18; TEMP 36.4; O2SAT 98
[2025-01-21] MEDS: haloperidol 5 mg Tablet PO (20:04)
[2025-01-21] MEDS: trazodone 50 mg Tablet PO (20:04)
[2025-01-21] MEDS: hyDROXYzine 25 mg Capsule 50 MG PO (20:04)
[2025-01-22 06:00] VITALS: BP 109/64; PULSE 112; RESP 18; TEMP 36.5; O2SAT 98
--- NOTE | 2025-01-22 07:41 | W.PM.NPUPNS ---
Subjective NPU Subjective: Patient presented today reporting that she is doing okay. We discussed the need to work with the social work team on her level 2 as well as looking at guardianship excetra. She is reporting that she would like to go home and we discussed the fact that based on her REBECCA screening we need to be diligent about discharge because it suggest that she would not fare well independently. She denied any side effects of the medications. Mental Status Exam MSE Comments: This is a slender white female in hospital scrubs with poor grooming and eye contact. Poor dentition/absent teeth no abnormal movements except for psychomotor retardation. Cooperative with exam in mild distress. Speech was more normal rate and volume and limited productivity. Mood described as a little better, affect congruent. Thought process organized. Thought content: Patient denied any suicidal or homicidal ideation, though there were no reports of delusions but patient was quite guarded, she endorses auditory hallucinations and occasional visual hallucinations. Attention and concentration appeared limited and memory appeared unreliable but none were formally tested. She is alert and oriented x person and place. Insight, judgment and impulse control were impaired. Vitals/I&O/Wt Last Vital Signs Temp 97.7 F 01/22/25 06:00 Pulse 112 H 01/22/25 06:00 Resp 18 01/22/25 06:00 BP 109/64 01/22/25 06:00 Pulse Ox 98 01/22/25 06:00 O2 Del Method Room Air 01/21/25 14:00 Weight last 48 hrs Weight 68.946 kg Data NPU 12/26/24 19:27 12/26/24 19:27 A&P Assessment and plan (1) Psychosis: (2) Adjustment disorder: (3) Cluster B personality disorder: (4) Chronic post-traumatic stress disorder: (5) Amphetamine addiction: (6) Anxiety and depression: (7) Withdrawal from methamphetamine: (8) Methamphetamine intoxication: Plan This is a 44-year-old white female known from past admissions with reported extended history of trauma, intellectual disability, significant addiction and 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 Continue invega 6mg daily. Patient given invega IM 234mg on 01/07/25. Next Invega IM 156mg given 01/13/25. 2. Patient now on 21 day hold. 3. Obtain collateral information. 4. Encourage individual, group and milieu therapy. 5. Continue every 15 minute checks for safety. 6. Encourage sober living treatment after discharge at at the highest level of care to which she is willing to commit. 7. Patient to enter [facility] program. Still showing slight improvement in last two weeks on invega. B. Obtain REBECCA evaluation for assessment of cognitive functioning to assist in determination of readiness for discharge. REBECCA shows needs in 11 of 13 domains and so we will file for level 2 and likely pursue guardianship. PDMP PDMP Reviewed: Not Reviewed Involuntary Hold Information Hold Status: Legal Status: 21 Day Hold Date/Time Hold Expires: 01/24/25 96 Hour Hold: 96 Hour Involuntary Admission: No Attestations NPU Medical Necessity Statement*: Inpatient hospitalization is medically necessary and the clinically appropriate intervention at this time. We will monitor medications and make changes as indicated. The patient's likely length of stay 7-10 days. Coding Level of Care Code Acute Code for [facility] Fwd Diagnoses Psychosis F29 Adjustment disorder F43.20 Cluster B personality disorder F60.89 Chronic post-traumatic stress disorder F43.12 Amphetamine addiction F15.20 Anxiety and depression F41.9; F32.9 Withdrawal from methamphetamine F15.93 Methamphetamine intoxication F15.929
[2025-01-22] MEDS: paliperidone ER 6 mg Tablet PO (08:26)
[2025-01-22] MEDS: nicotine 4 mg lozenge MUCOUS MEM (13:09)
[2025-01-22 14:00] VITALS: BP 104/70; PULSE 92; RESP 18; TEMP 36.8; O2SAT 99
[2025-01-22] MEDS: nicotine 2 mg Gum BUCCAL (14:00)
[2025-01-22] MEDS: hyDROXYzine 25 mg Capsule 50 MG PO (16:17)
[2025-01-22] MEDS: acetaminophen 325 mg Tablet 650 MG PO (17:05)
[2025-01-22] MEDS: haloperidol 5 mg Tablet PO (20:03)
[2025-01-22] MEDS: trazodone 50 mg Tablet PO (20:03)
[2025-01-22 20:32] VITALS: BP 112/63; PULSE 100; RESP 18; TEMP 36.7; O2SAT 98
[2025-01-23 06:00] VITALS: BP 101/62; PULSE 93; RESP 17; TEMP 36.7; O2SAT 98
[2025-01-23] MEDS: paliperidone ER 6 mg Tablet PO (09:06)
[2025-01-23] MEDS: OLANZapine 5 mg ODT PO (10:17)
--- NOTE | 2025-01-23 12:56 | PC.NURSE ---
Pt was served 90day paperwork from deputies of the law, security was called to the unit and present during the exchange.
[2025-01-23 14:00] VITALS: BP 101/71; PULSE 106; RESP 17; O2SAT 100
--- NOTE | 2025-01-23 14:38 | P.NPUPN_ITS ---
Subjective NPU 2 Subjective: Patient presented today reporting that things are going all right. She continued to have what seemed to be limited appreciation of her circumstance per staff report and direct observation. She continued to be pleasant. She was asking whether she could be put on Adderall as her energy was low. We discussed concerns about giving her any medication because her energy is low and concerns that Adderall would be a bad choice in general based on her addiction history. Otherwise she had no complaints and denied any side effects of the medication. Mental Status Exam 2 MSE Comments: This is a slender white female in hospital scrubs with poor grooming and eye contact. Poor dentition/absent teeth no abnormal movements except for psychomotor retardation. Cooperative with exam in mild distress. Speech was more normal rate and volume and limited productivity. Mood described as a little better, affect congruent. Thought process organized. Thought content: Patient denied any suicidal or homicidal ideation, though there were no reports of delusions but patient was quite guarded, she endorses auditory hallucinations and occasional visual hallucinations. Attention and concentration appeared limited and memory appeared unreliable but none were formally tested. She is alert and oriented x person and place. Insight, judgment and impulse control were impaired. Vitals/I&O/Wt Last Vital Signs Temp 98.0 F 01/23/25 06:00 Pulse 93 01/23/25 06:00 Resp 17 01/23/25 06:00 BP 101/62 01/23/25 06:00 Pulse Ox 98 01/23/25 06:00 O2 Del Method Room Air 01/23/25 06:00 Data NPU 12/26/24 19:27 12/26/24 19:27 A&P Assessment and plan (1) Psychosis: (2) Adjustment disorder: (3) Cluster B personality disorder: (4) Chronic post-traumatic stress disorder: (5) Amphetamine addiction: (6) Anxiety and depression: (7) Withdrawal from methamphetamine: (8) Methamphetamine intoxication: Plan This is a 44-year-old white female known from past admissions with reported extended history of trauma, intellectual disability, significant addiction and 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 Continue invega 6mg daily. Patient given invega IM 234mg on 01/07/25. Last Invega IM 156mg given 01/13/25. Next injection due 02/11/2025. 2. Patient now on 21 day hold. 3. Obtain collateral information. 4. Encourage individual, group and milieu therapy. 5. Continue every 15 minute checks for safety. 6. Encourage sober living treatment after discharge at at the highest level of care to which she is willing to commit. 7. Patient to enter [facility] program. Still showing slight improvement in last two weeks on invega. B. Obtain REBECCA evaluation for assessment of cognitive functioning to assist in determination of readiness for discharge. REBECCA shows needs in 11 of 13 domains and so we will file for level 2 and likely pursue guardianship. PDMP PDMP Reviewed: Not Reviewed Involuntary Hold Information 2 Hold Status: Legal Status: 21 Day Hold Date/Time Hold Expires: 01/24/25 96 Hour Hold: 96 Hour Involuntary Admission: No Attestations NPU 2 Medical Necessity Statement*: Inpatient hospitalization is medically necessary and the clinically appropriate intervention at this time. We will monitor medications and make changes as indicated. The patient's likely length of stay 7-10 days. Coding Level of Care Code Acute Code for [facility] Fwd Diagnoses Psychosis F29 Adjustment disorder F43.20 Cluster B personality disorder F60.89 Chronic post-traumatic stress disorder F43.12 Amphetamine addiction F15.20 Anxiety and depression F41.9; F32.9 Withdrawal from methamphetamine F15.93 Methamphetamine intoxication F15.929
[2025-01-23] MEDS: acetaminophen 325 mg Tablet 650 MG PO (16:40)
[2025-01-23] MEDS: hyDROXYzine 25 mg Capsule 50 MG PO (16:52)
[2025-01-23 20:14] VITALS: BP 105/66; PULSE 119; RESP 18; TEMP 36.9; O2SAT 96
[2025-01-24 05:07] VITALS: BP 98/69; PULSE 104; RESP 18; TEMP 36.7; O2SAT 99
[2025-01-24] MEDS: paliperidone ER 6 mg Tablet PO (08:44)
[2025-01-24] MEDS: OLANZapine 5 mg ODT PO (11:25)
[2025-01-24] MEDS: hyDROXYzine 25 mg Capsule 50 MG PO ×2 (11:25→21:16)
--- NOTE | 2025-01-24 11:27 | PC.NURSE ---
Pt is actively hallucinating up at the nurses station, placing unseen items on the desk. Pt asked for a bible, handed it to the pt and she looked stunned and stated Hand that back, hand it back to the nurse . Blankly starring into the nurses station. Pt has been walking around the halls and in and out of her room.
[2025-01-24 14:00] VITALS: BP 135/78; PULSE 96; RESP 16; TEMP 37; O2SAT 98
--- NOTE | 2025-01-24 15:47 | PC.NURSE ---
1255 Pt escorted off the unit by the deputies [address]
--- NOTE | 2025-01-24 17:13 | P.NPUPN_ITS ---
Subjective NPU 2 Subjective: Patient presented today reporting that she is okay. She was not happy about being placed on a hold extension and was inquiring of the court as to why she needs to be on a 90-day hold not understanding the stepwise progression of the length of time of the holds. She denied any side effects of the medication. Mental Status Exam 2 MSE Comments: This is a slender white female in hospital scrubs with poor grooming and eye contact. Poor dentition/absent teeth no abnormal movements except for psychomotor retardation. Cooperative with exam in mild distress. Speech was more normal rate and volume and limited productivity. Mood described as a little better, affect congruent. Thought process organized. Thought content: Patient denied any suicidal or homicidal ideation, though there were no reports of delusions but patient was quite guarded, she endorses auditory hallucinations and occasional visual hallucinations. Attention and concentration appeared limited and memory appeared unreliable but none were formally tested. She is alert and oriented x person and place. Insight, judgment and impulse control were impaired. Vitals/I&O/Wt Last Vital Signs Temp 98.0 F 01/24/25 05:07 Pulse 104 H 01/24/25 05:07 Resp 18 01/24/25 05:07 BP 98/69 01/24/25 05:07 Pulse Ox 99 01/24/25 05:07 O2 Del Method Room Air 01/24/25 05:07 01/24/25 01/24/25 01/24/25 06:59 14:59 22:59 Intake Total 240 / 240 Balance 240 / 240 Data NPU 12/26/24 19:27 12/26/24 19:27 A&P Assessment and plan (1) Psychosis: (2) Adjustment disorder: (3) Cluster B personality disorder: (4) Chronic post-traumatic stress disorder: (5) Amphetamine addiction: (6) Anxiety and depression: (7) Withdrawal from methamphetamine: (8) Methamphetamine intoxication: Plan This is a 44-year-old white female known from past admissions with reported extended history of trauma, intellectual disability, significant addiction and 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 Continue invega 6mg daily. Patient given invega IM 234mg on 01/07/25. Last Invega IM 156mg given 01/13/25. Next injection due 02/11/2025. 2. Patient now on 21 day hold. 3. Obtain collateral information. 4. Encourage individual, group and milieu therapy. 5. Continue every 15 minute checks for safety. 6. Encourage sober living treatment after discharge at at the highest level of care to which she is willing to commit. 7. Patient to enter [facility] program. Still showing slight improvement in last two weeks on invega. B. Obtain REBECCA evaluation for assessment of cognitive functioning to assist in determination of readiness for discharge. REBECCA shows needs in 11 of 13 domains and so we will file for level 2 and likely pursue guardianship. 90-day hold hearing today and patient placed on hold. PDMP PDMP Reviewed: Not Reviewed Involuntary Hold Information 2 Hold Status: Legal Status: 90 Day Hold Date/Time Hold Expires: filed 01/23/25 96 Hour Hold: 96 Hour Involuntary Admission: No Attestations NPU 2 Medical Necessity Statement*: Inpatient hospitalization is medically necessary and the clinically appropriate intervention at this time. We will monitor medications and make changes as indicated. The patient's likely length of stay 7-10 days. Coding Level of Care Code Acute Code for [facility] Fwd Diagnoses Psychosis F29 Adjustment disorder F43.20 Cluster B personality disorder F60.89 Chronic post-traumatic stress disorder F43.12 Amphetamine addiction F15.20 Anxiety and depression F41.9; F32.9 Withdrawal from methamphetamine F15.93 Methamphetamine intoxication F15.929
[2025-01-24] MEDS: nicotine 2 mg Gum BUCCAL (18:02)
[2025-01-24] MEDS: haloperidol 5 mg Tablet PO (18:02)
[2025-01-24] MEDS: diphenhydrAMINE 50 mg Capsule PO (18:02)
[2025-01-24 20:20] VITALS: BP 102/64; PULSE 102; RESP 16; TEMP 36.7; O2SAT 97
[2025-01-24] MEDS: trazodone 50 mg Tablet PO (21:16)
--- NOTE | 2025-01-25 04:49 | PC.NURSE ---
Pt. just came up to the nurses station requesting a drink, but then left the drink at the nurses station.
[2025-01-25 04:53] VITALS: BP 105/70; PULSE 108; RESP 18; TEMP 36.8; O2SAT 95
--- NOTE | 2025-01-25 04:54 | PC.NURSE ---
After pt. came back up to the nurses station to get her drink she had left. She then came back asking for another drink. Signee informed her she had just been given a drink, pt. returned to her room, then just a min or two later came back again requesting a drink. Signee again told her she had just been given a drink. Pt. said thank you.
--- NOTE | 2025-01-25 05:11 | PC.NURSE ---
Pt. name bracelet had been removed d/t it was too tight and pt. wrist swells. A new band was made and pt. moved the band up above her elbow. OPERATING ROOM ORDERLY told pt. not to do this because it was very tight where pt. had it. Pt. again had the band above her elbow and it was removed to prevent swelling again.
--- NOTE | 2025-01-25 05:46 | PC.NURSE ---
Pt. came up to nurses station asking if she could get her medication from [facility], her Klonopin, and some other medications. Signee informed pt. she has been here for several weeks and if the DrLexx was going to restart those medications he would have done so by now.
[2025-01-25] MEDS: paliperidone ER 6 mg Tablet PO (08:12)
[2025-01-25] MEDS: nicotine 4 mg lozenge MUCOUS MEM ×3 (09:50→18:05)
[2025-01-25 14:00] VITALS: BP 118/76; PULSE 121; RESP 16; TEMP 36.4; O2SAT 99
--- NOTE | 2025-01-25 17:01 | P.NPUPN_ITS ---
Subjective NPU 2 Subjective: Patient presented today reporting that things are going well. She seemed to be more cogent and was asking questions about the process. Asking with seeming intent about whether she would go to a placement or go home. We discussed our desire that she have continued incremental improvement and that ultimately she is assigned a guardian that could help her with some of this decision making if she were to get well enough to discharge. We also discussed the fact that her methamphetamine use has been a horrible introduction to her brain and that we need to be able to trust that she will be sober if there is any chance that she could live outside the hospital and be independent. She denied any side effects to the medication. Mental Status Exam 2 MSE Comments: This is a slender white female in hospital scrubs with poor grooming and eye contact. Poor dentition/absent teeth no abnormal movements except for psychomotor retardation. Cooperative with exam in mild distress. Speech was more normal rate and volume and limited productivity. Mood described as a little better, affect congruent. Thought process organized. Thought content: Patient denied any suicidal or homicidal ideation, though there were no reports of delusions but patient was quite guarded, she endorses auditory hallucinations and occasional visual hallucinations. Attention and concentration appeared limited and memory appeared unreliable but none were formally tested. She is alert and oriented x person and place. Insight, judgment and impulse control were impaired. Vitals/I&O/Wt Last Vital Signs Temp 97.6 F 01/25/25 14:00 Pulse 121 H 01/25/25 14:00 Resp 16 01/25/25 14:00 BP 118/76 01/25/25 14:00 Pulse Ox 99 01/25/25 14:00 O2 Del Method Room Air 01/25/25 14:00 Data NPU 12/26/24 19:27 12/26/24 19:27 A&P Assessment and plan (1) Psychosis: (2) Adjustment disorder: (3) Cluster B personality disorder: (4) Chronic post-traumatic stress disorder: (5) Amphetamine addiction: (6) Anxiety and depression: (7) Withdrawal from methamphetamine: (8) Methamphetamine intoxication: Plan This is a 44-year-old white female known from past admissions with reported extended history of trauma, intellectual disability, significant addiction and 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 Continue invega 6mg daily. Patient given invega IM 234mg on 01/07/25. Last Invega IM 156mg given 01/13/25. Next injection due 02/11/2025. 2. Patient now on 21 day hold. 3. Obtain collateral information. 4. Encourage individual, group and milieu therapy. 5. Continue every 15 minute checks for safety. 6. Encourage sober living treatment after discharge at at the highest level of care to which she is willing to commit. 7. Patient to enter [facility] program. Still showing slight improvement in last two weeks on invega. B. Obtain REBECCA evaluation for assessment of cognitive functioning to assist in determination of readiness for discharge. REBECCA shows needs in 11 of 13 domains and so we will file for level 2 and likely pursue guardianship. 90-day hold hearing 01/24/2025 and patient placed on hold. PDMP PDMP Reviewed: Not Reviewed Involuntary Hold Information 2 Hold Status: Legal Status: 90 Day Hold Date/Time Hold Expires: 04/24/25 96 Hour Hold: 96 Hour Involuntary Admission: No Attestations NPU 2 Medical Necessity Statement*: Inpatient hospitalization is medically necessary and the clinically appropriate intervention at this time. We will monitor medications and make changes as indicated. The patient's likely length of stay 7-10 days. Coding Level of Care Code Acute Code for [facility] Fwd Diagnoses Psychosis F29 Adjustment disorder F43.20 Cluster B personality disorder F60.89 Chronic post-traumatic stress disorder F43.12 Amphetamine addiction F15.20 Anxiety and depression F41.9; F32.9 Withdrawal from methamphetamine F15.93 Methamphetamine intoxication F15.929
[2025-01-25 19:37] VITALS: BP 107/73; PULSE 88; RESP 16; TEMP 36.6; O2SAT 100
[2025-01-25] MEDS: hyDROXYzine 25 mg Capsule 50 MG PO (21:01)
[2025-01-25] MEDS: trazodone 50 mg Tablet PO (21:01)
[2025-01-25] MEDS: diphenhydrAMINE 50 mg Capsule PO (21:01)
[2025-01-26 06:00] VITALS: BP 106/73; RESP 17; TEMP 36.4; O2SAT 100
[2025-01-26] MEDS: nicotine 2 mg Gum BUCCAL (06:05)
[2025-01-26] MEDS: paliperidone ER 6 mg Tablet PO (07:16)
--- NOTE | 2025-01-26 07:17 | PC.NURSE ---
pt requesting medication early.
--- NOTE | 2025-01-26 08:38 | P.NPUPN_ITS ---
Subjective NPU 2 Subjective: Patient presented today denying any changes or any concerns. She continues to be hopeful for discharge and not needing placement but seems to understand at this point she is moving towards guardianship and placement she denied any other issues or problems at this time. She denied any side effects to her medications. Mental Status Exam 2 MSE Comments: This is a slender white female in hospital scrubs with poor grooming and eye contact. Poor dentition/absent teeth no abnormal movements except for psychomotor retardation. Cooperative with exam in mild distress. Speech was more normal rate and volume and limited productivity. Mood described as a little better, affect congruent. Thought process organized. Thought content: Patient denied any suicidal or homicidal ideation, though there were no reports of delusions but patient was quite guarded, she endorses auditory hallucinations and occasional visual hallucinations. Attention and concentration appeared limited and memory appeared unreliable but none were formally tested. She is alert and oriented x person and place. Insight, judgment and impulse control were impaired. Vitals/I&O/Wt Last Vital Signs Temp 97.5 F L 01/26/25 06:00 Pulse 88 01/25/25 19:37 Resp 17 01/26/25 06:00 BP 106/73 01/26/25 06:00 Pulse Ox 100 01/26/25 06:00 O2 Del Method Room Air 01/26/25 06:00 Data NPU 12/26/24 19:27 12/26/24 19:27 A&P Assessment and plan (1) Psychosis: (2) Adjustment disorder: (3) Cluster B personality disorder: (4) Chronic post-traumatic stress disorder: (5) Amphetamine addiction: (6) Anxiety and depression: (7) Withdrawal from methamphetamine: (8) Methamphetamine intoxication: Plan This is a 44-year-old white female known from past admissions with reported extended history of trauma, intellectual disability, significant addiction and 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 Continue invega 6mg daily. Patient given invega IM 234mg on 01/07/25. Last Invega IM 156mg given 01/13/25. Next injection due 02/11/2025. 2. Patient now on 21 day hold. 3. Obtain collateral information. 4. Encourage individual, group and milieu therapy. 5. Continue every 15 minute checks for safety. 6. Encourage sober living treatment after discharge at at the highest level of care to which she is willing to commit. 7. Patient to enter [facility] program. Still showing slight improvement in last two weeks on invega. B. Obtain REBECCA evaluation for assessment of cognitive functioning to assist in determination of readiness for discharge. REBECCA shows needs in 11 of 13 domains and so we will file for level 2 and likely pursue guardianship. 90-day hold hearing 01/24/2025 and patient placed on hold. PDMP PDMP Reviewed: Not Reviewed Involuntary Hold Information 2 Hold Status: Legal Status: 90 Day Hold Date/Time Hold Expires: 04/24/25 96 Hour Hold: 96 Hour Involuntary Admission: No Attestations NPU 2 Medical Necessity Statement*: Inpatient hospitalization is medically necessary and the clinically appropriate intervention at this time. We will monitor medications and make changes as indicated. The patient's likely length of stay 7-10 days. Coding Level of Care Code Acute Code for Chg Fwd Diagnoses Psychosis F29 Adjustment disorder F43.20 Cluster B personality disorder F60.89 Chronic post-traumatic stress disorder F43.12 Amphetamine addiction F15.20 Anxiety and depression F41.9; F32.9 Withdrawal from methamphetamine F15.93 Methamphetamine intoxication F15.929
[2025-01-26 14:00] VITALS: BP 142/74; PULSE 88; RESP 16; TEMP 36.9; O2SAT 98
[2025-01-26] MEDS: nicotine 4 mg lozenge MUCOUS MEM ×2 (16:13→19:14)
[2025-01-26] MEDS: haloperidol 5 mg Tablet PO (20:13)
[2025-01-26 21:28] VITALS: BP 97/64; PULSE 96; RESP 16; TEMP 36.7; O2SAT 99
[2025-01-27] MEDS: nicotine 2 mg Gum BUCCAL (05:44)
[2025-01-27 06:00] VITALS: BP 99/72; PULSE 85; RESP 16; TEMP 36.7; O2SAT 100
[2025-01-27] MEDS: hyDROXYzine 25 mg Capsule 50 MG PO (07:54)
[2025-01-27] MEDS: paliperidone ER 6 mg Tablet PO (07:54)
--- NOTE | 2025-01-27 11:18 | P.NPUPN_ITS ---
Subjective NPU 2 Subjective: Patient presented today with no changes reported and denying any issues. We discussed the importance of her continuing to maintain her sobriety moving forward as the concerns would be that any additional use might take her to a place of no return from the standpoint of cognitive ability. She continues to have difficulties cognitively per staff reports and direct observation but also seem to be a little more able to hold a conversation. We discussed the possibility of repeating her REBECCA maybe in a week or so if she seems to have additional clarity to be able to determine whether there is possibility for a better outcome than it has been appearing. She denied any side effects to medication. Mental Status Exam 2 MSE Comments: This is a slender white female in hospital scrubs with poor grooming and eye contact. Poor dentition/absent teeth no abnormal movements except for psychomotor retardation. Cooperative with exam in mild distress. Speech was more normal rate and volume and limited productivity. Mood described as a little better, affect congruent. Thought process organized. Thought content: Patient denied any suicidal or homicidal ideation, though there were no reports of delusions but patient was quite guarded, she endorses auditory hallucinations and occasional visual hallucinations. Attention and concentration appeared limited and memory appeared unreliable but none were formally tested. She is alert and oriented x person and place. Insight, judgment and impulse control were impaired. Vitals/I&O/Wt Last Vital Signs Temp 98.1 F 01/27/25 06:00 Pulse 85 01/27/25 06:00 Resp 16 01/27/25 06:00 BP 99/72 01/27/25 06:00 Pulse Ox 100 01/27/25 06:00 O2 Del Method Room Air 01/26/25 14:00 Data NPU 12/26/24 19:27 12/26/24 19:27 A&P Assessment and plan (1) Psychosis: (2) Adjustment disorder: (3) Cluster B personality disorder: (4) Chronic post-traumatic stress disorder: (5) Amphetamine addiction: (6) Anxiety and depression: (7) Withdrawal from methamphetamine: (8) Methamphetamine intoxication: Plan This is a 44-year-old white female known from past admissions with reported extended history of trauma, intellectual disability, significant addiction and 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 Continue invega 6mg daily. Patient given invega IM 234mg on 01/07/25. Last Invega IM 156mg given 01/13/25. Next injection due 02/11/2025. 2. Patient now on 21 day hold. 3. Obtain collateral information. 4. Encourage individual, group and milieu therapy. 5. Continue every 15 minute checks for safety. 6. Encourage sober living treatment after discharge at at the highest level of care to which she is willing to commit. 7. Patient to enter [facility] program. Still showing slight improvement in last two weeks on invega. B. Obtain REBECCA evaluation for assessment of cognitive functioning to assist in determination of readiness for discharge. REBECCA shows needs in 11 of 13 domains and so we will file for level 2 and likely pursue guardianship. 90-day hold hearing 01/24/2025 and patient placed on hold. PDMP PDMP Reviewed: Not Reviewed Involuntary Hold Information 2 Hold Status: Legal Status: 90 Day Hold Date/Time Hold Expires: 04/24/25 96 Hour Hold: 96 Hour Involuntary Admission: No Attestations NPU 2 Medical Necessity Statement*: Inpatient hospitalization is medically necessary and the clinically appropriate intervention at this time. We will monitor medications and make changes as indicated. The patient's likely length of stay 7-10 days. Coding Level of Care Code Acute Code for Chg Fwd Diagnoses Psychosis F29 Adjustment disorder F43.20 Cluster B personality disorder F60.89 Chronic post-traumatic stress disorder F43.12 Amphetamine addiction F15.20 Anxiety and depression F41.9; F32.9 Withdrawal from methamphetamine F15.93 Methamphetamine intoxication F15.929
[2025-01-27 14:00] VITALS: BP 101/68; PULSE 93; RESP 17; TEMP 36.8; O2SAT 100
[2025-01-27] MEDS: nicotine 4 mg lozenge MUCOUS MEM ×2 (15:35→17:47)
[2025-01-27] MEDS: haloperidol 5 mg Tablet PO (20:14)
[2025-01-27 20:28] VITALS: BP 106/68; PULSE 100; RESP 18; TEMP 36.6; O2SAT 99
[2025-01-28 06:00] VITALS: BP 106/78; PULSE 99; RESP 18; TEMP 36.6; O2SAT 100
[2025-01-28] MEDS: paliperidone ER 6 mg Tablet PO (09:48)
[2025-01-28] MEDS: hyDROXYzine 25 mg Capsule 50 MG PO (09:48)
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
[2025-01-28 14:00] VITALS: BP 98/67; PULSE 109; RESP 17; TEMP 37.1; O2SAT 96
--- NOTE | 2025-01-28 14:40 | P.NPUPN_ITS ---
Subjective NPU 2 Subjective: 44-year-old female with history of metha mphetamine abuse and psychosis currently on a 90-day hold. The patient stated that she was hopeful about leaving the hospital. She appeared more accepting of the idea that she may need additional support and a potential place to live indefinitely where others could help her. She denied any side effects from her current medication regimen. The patient was redirectable and did not appear to have any significant issues other than being prompted to engage in her self-care more. Mental Status Exam 2 MSE Comments: This is a slender, white female in hospital scrubs with poor grooming and eye contact. Poor dentition/absent teeth no abnormal movements except for psychomotor retardation. She was cooperative with exam in mild distress. Speech was more normal rate and volume and limited productivity. Mood described as a little better, affect was subdued. Thought process was organized but superficial. Thought content: Patient denied any suicidal or homicidal ideation, though there were no reports of delusions but patient was quite guarded, she endorses auditory hallucinations and occasional visual hallucinations. Attention and concentration appeared limited and memory appeared unreliable but none were formally tested. She is alert and oriented x person and place. Insight, judgment and impulse control were impaired. Vitals/I&O/Wt Last Vital Signs Temp 97.9 F 01/28/25 06:00 Pulse 99 01/28/25 06:00 Resp 18 01/28/25 06:00 BP 106/78 01/28/25 06:00 Pulse Ox 100 01/28/25 06:00 O2 Del Method Room Air 01/26/25 14:00 Weight last 48 hrs Weight 68.765 kg Data NPU 12/26/24 19:27 12/26/24 19:27 A&P Assessment and plan (1) Psychosis: (2) Adjustment disorder: (3) Cluster B personality disorder: (4) Chronic post-traumatic stress disorder: (5) Amphetamine addiction: (6) Anxiety and depression: (7) Withdrawal from methamphetamine: (8) Methamphetamine intoxication: Plan This is a 44-year-old white female known from past admissions with reported extended history of trauma, intellectual disability, significant addiction and 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 Continue invega 6mg daily. Patient given invega IM 234mg on 01/07/25. Last Invega IM 156mg given 01/13/25. Next injection due 02/11/2025. 2. Patient now on 21 day hold. 3. Obtain collateral information. 4. Encourage individual, group and milieu therapy. 5. Continue every 15 minute checks for safety. 6. Encourage sober living treatment after discharge at at the highest level of care to which she is willing to commit. 7. Patient to enter [facility] program. Still showing slight improvement in last two weeks on invega. B. Obtain REBECCA evaluation for assessment of cognitive functioning to assist in determination of readiness for discharge. REBECCA shows needs in 11 of 13 domains and so we will file for level 2 and likely pursue guardianship. 90-day hold hearing 01/24/2025 and patient placed on hold. PDMP PDMP Reviewed: Not Reviewed Involuntary Hold Information 2 Hold Status: Legal Status: 90 Day Hold Date/Time Hold Expires: 04/24/25 96 Hour Hold: 96 Hour Involuntary Admission: No Attestations NPU 2 Medical Necessity Statement*: Inpatient hospitalization is medically necessary and the clinically appropriate intervention at this time. We will monitor medications and make changes as indicated. The patient's likely length of stay 7-10 days. Coding Level of Care Code Acute Code for Chg Fwd Diagnoses Psychosis F29 Adjustment disorder F43.20 Cluster B personality disorder F60.89 Chronic post-traumatic stress disorder F43.12 Amphetamine addiction F15.20 Anxiety and depression F41.9; F32.9 Withdrawal from methamphetamine F15.93 Methamphetamine intoxication F15.929
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
[2025-01-28] MEDS: haloperidol 5 mg Tablet PO (20:14)
[2025-01-28 20:51] VITALS: BP 105/69; PULSE 104; RESP 16; TEMP 37.1; O2SAT 97
[2025-01-29 06:00] VITALS: BP 102/71; PULSE 108; RESP 16; TEMP 36.8; O2SAT 98
[2025-01-29] MEDS: hyDROXYzine 25 mg Capsule 50 MG PO (08:54)
[2025-01-29] MEDS: nicotine 4 mg lozenge MUCOUS MEM ×3 (08:55→20:17)
[2025-01-29] MEDS: paliperidone ER 6 mg Tablet PO (08:57)
[2025-01-29 14:00] VITALS: BP 135/74; PULSE 65; RESP 16; TEMP 37; O2SAT 98
--- NOTE | 2025-01-29 16:00 | P.NPUPN_ITS ---
Subjective NPU 2 Subjective: 44-year-old female with history of metha mphetamine abuse and psychosis currently on a 90-day hold. The patient had remained compliant on the milieu. She had remained forgetful and required some prompting for completion of activities of daily living. She had appeared to wander on the unit but was redirectable. She had not engaged in any self-injurious behavior. She had acknowledged having used methamphetamine in the past and stated that she had continued problems with concentration. She reported no side effects from her medication regimen. Mental Status Exam 2 MSE Comments: This is a slender, white female in hospital scrubs with poor grooming and eye contact. Poor dentition/absent teeth no abnormal movements except for psychomotor retardation. She was cooperative with exam in mild distress. Speech was more normal rate and volume and limited productivity. Mood described as okay. Her affect was odd and subdued. Thought process was organized but superficial. Thought content: Patient denied any suicidal or homicidal ideation, though there were no reports of delusions but patient was quite guarded, she endorses auditory hallucinations and denied visual hallucinations. Attention and concentration appeared limited and memory appeared unreliable but none were formally tested. She is alert and oriented x person and place. Insight, judgment and impulse control were impaired. Vitals/I&O/Wt Last Vital Signs Temp 98.6 F 01/29/25 14:00 Pulse 65 01/29/25 14:00 Resp 16 01/29/25 14:00 BP 135/74 01/29/25 14:00 Pulse Ox 98 01/29/25 14:00 O2 Del Method Room Air 01/29/25 14:00 Weight last 48 hrs Weight 68.765 kg Data NPU 12/26/24 19:27 12/26/24 19:27 A&P Assessment and plan (1) Psychosis: (2) Adjustment disorder: (3) Cluster B personality disorder: (4) Chronic post-traumatic stress disorder: (5) Amphetamine addiction: (6) Anxiety and depression: (7) Withdrawal from methamphetamine: (8) Methamphetamine intoxication: Plan This is a 44-year-old white female known from past admissions with reported extended history of trauma, intellectual disability, significant addiction and 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 Continue invega 6mg daily. Patient given invega IM 234mg on 01/07/25. Last Invega IM 156mg given 01/13/25. Next injection due 02/11/2025. 2. Patient now on 21 day hold. 3. Obtain collateral information. 4. Encourage individual, group and milieu therapy. 5. Continue every 15 minute checks for safety. 6. Encourage sober living treatment after discharge at at the highest level of care to which she is willing to commit. 7. Patient to enter [facility] program. B. Obtain REBECCA evaluation for assessment of cognitive functioning to assist in determination of readiness for discharge. REBECCA shows needs in 11 of 13 domains and so we will file for level 2 and likely pursue guardianship. 90-day hold hearing 01/24/2025 and patient placed on hold. PDMP PDMP Reviewed: Not Reviewed Involuntary Hold Information 2 Hold Status: Legal Status: 90 Day Hold Date/Time Hold Expires: 04/24/25 96 Hour Hold: 96 Hour Involuntary Admission: No Attestations NPU 2 Medical Necessity Statement*: Inpatient hospitalization is medically necessary and the clinically appropriate intervention at this time. We will monitor medications and make changes as indicated. The patient's likely length of stay 7-10 days. Coding Level of Care Code Acute Code for Chg Fwd Diagnoses Psychosis F29 Adjustment disorder F43.20 Cluster B personality disorder F60.89 Chronic post-traumatic stress disorder F43.12 Amphetamine addiction F15.20 Anxiety and depression F41.9; F32.9 Withdrawal from methamphetamine F15.93 Methamphetamine intoxication F15.929
[2025-01-29 19:23] VITALS: BP 109/72; PULSE 90; RESP 18; TEMP 36.6; O2SAT 98
[2025-01-30 06:00] VITALS: BP 103/66; PULSE 110; RESP 18; TEMP 37.6; O2SAT 99
[2025-01-30] MEDS: nicotine 4 mg lozenge MUCOUS MEM (06:48)
[2025-01-30] MEDS: haloperidol 5 mg Tablet PO (08:09)
[2025-01-30] MEDS: hyDROXYzine 25 mg Capsule 50 MG PO (08:09)
[2025-01-30] MEDS: paliperidone ER 6 mg Tablet PO (08:09)
--- NOTE | 2025-01-30 11:20 | PC.NURSE ---
EVS was cleaning pt's room and swept up what appeared to be pieces of Nicotine Lozenges that were skilled nursing dissolved and broken into pieces. This nurse inspected the pieces and had EVS dispose of them.
[2025-01-30 14:00] VITALS: BP 111/66; PULSE 100; RESP 18; TEMP 36.8; O2SAT 96
--- NOTE | 2025-01-30 15:05 | P.NPUPN_ITS ---
Subjective NPU 2 Subjective: 44-year-old female with history of metha mphetamine abuse and psychosis currently on a 90-day hold. The patient continue to isolate herself on the milieu. She had appeared confused again asking when she was going home. She had reported sleeping well. She continued to report that she felt fine. She had asked staff numerous times the same question several minutes after asking at the first time. She reported that she did not require any help with her home and did continue to minimize the significance of her methamphetamine use and causing her continued decline in her mental health. She reported no side effects from her medication. Mental Status Exam 2 MSE Comments: This is a slender, white female in hospital scrubs with poor grooming and eye contact. Poor dentition/absent teeth no abnormal movements except for psychomotor retardation. She was cooperative with exam in mild distress. Speech was more normal rate and volume and limited productivity and spontaneity. Mood described as allright. Her affect was odd and subdued. Thought process was organized but superficial. Thought content: Patient denied any suicidal or homicidal ideation, though there were no reports of delusions but patient was quite guarded, she endorses auditory hallucinations and denied visual hallucinations. Attention and concentration appeared limited and memory appeared unreliable but none were formally tested. She is alert and oriented x person and place. Insight, judgment and impulse control were impaired. Vitals/I&O/Wt Last Vital Signs Temp 99.6 F 01/30/25 06:00 Pulse 110 H 01/30/25 06:00 Resp 18 01/30/25 06:00 BP 103/66 01/30/25 06:00 Pulse Ox 99 01/30/25 06:00 O2 Del Method Room Air 01/30/25 06:00 01/30/25 01/30/25 01/30/25 06:59 14:59 22:59 Intake Total 480 / 480 Balance 480 / 480 Data NPU 12/26/24 19:27 12/26/24 19:27 A&P Assessment and plan (1) Psychosis: (2) Adjustment disorder: (3) Cluster B personality disorder: (4) Chronic post-traumatic stress disorder: (5) Amphetamine addiction: (6) Anxiety and depression: (7) Withdrawal from methamphetamine: (8) Methamphetamine intoxication: Plan This is a 44-year-old white female known from past admissions with reported extended history of trauma, intellectual disability, significant addiction and 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 Continue invega 6mg daily. Patient given invega IM 234mg on 01/07/25. Last Invega IM 156mg given 01/13/25. Next injection due 02/11/2025. 2. Patient now on 21 day hold. 3. Obtain collateral information. 4. Encourage individual, group and milieu therapy. 5. Continue every 15 minute checks for safety. 6. Encourage sober living treatment after discharge at at the highest level of care to which she is willing to commit. 7. Patient to enter [facility] program. B. Obtain REBECCA evaluation for assessment of cognitive functioning to assist in determination of readiness for discharge. REBECCA shows needs in 11 of 13 domains and so we will file for level 2 and likely pursue guardianship. 90-day hold hearing 01/24/2025 and patient placed on hold. Awaiting Level 2 hearing. PDMP PDMP Reviewed: Not Reviewed Involuntary Hold Information 2 Hold Status: Legal Status: 90 Day Hold Date/Time Hold Expires: 04/24/25 96 Hour Hold: 96 Hour Involuntary Admission: No Attestations NPU 2 Medical Necessity Statement*: Inpatient hospitalization is medically necessary and the clinically appropriate intervention at this time. We will monitor medications and make changes as indicated. The patient's likely length of stay 7-10 days. Coding Level of Care Code Acute Code for g Fwd Diagnoses Psychosis F29 Adjustment disorder F43.20 Cluster B personality disorder F60.89 Chronic post-traumatic stress disorder F43.12 Amphetamine addiction F15.20 Anxiety and depression F41.9; F32.9 Withdrawal from methamphetamine F15.93 Methamphetamine intoxication F15.929
[2025-01-30 19:33] VITALS: BP 92/57; PULSE 105; RESP 16; TEMP 36.6; O2SAT 99
[2025-01-31 06:00] VITALS: BP 107/71; PULSE 102; RESP 16; TEMP 36.7; O2SAT 97
[2025-01-31] MEDS: paliperidone ER 6 mg Tablet PO (09:07)
[2025-01-31] MEDS: nicotine 4 mg lozenge MUCOUS MEM ×2 (09:37→11:23)
[2025-01-31] MEDS: haloperidol 5 mg Tablet PO (11:23)
[2025-01-31] MEDS: benztropine 1 mg Tablet PO (11:23)
[2025-01-31] MEDS: OLANZapine 5 mg ODT PO (11:23)
[2025-01-31 14:00] VITALS: BP 105/67; PULSE 109; RESP 18; TEMP 36.9; O2SAT 96
--- NOTE | 2025-01-31 16:14 | P.NPUPN_ITS ---
Subjective NPU 2 Subjective: 44-year-old female with history of metha mphetamine abuse and psychosis currently on a 90-day hold. The patient had her level 2 completed today. She continued to struggle with her memory and appeared confused at times. She appeared times to be engaged in a conversation with herself and remained compliant with her medication. She struggled with completion of activities of daily living without prompting. She had reported that she had struggled with her finances throughout her life and stated that her use of drugs had made her thinking worse. The patient continue to isolate herself on the milieu. Mental Status Exam 2 MSE Comments: This is a slender, white female in hospital scrubs with poor grooming and eye contact. Poor dentition/absent teeth no abnormal movements except for psychomotor retardation. She was cooperative with exam in mild distress. Speech was more diminished in rate and volume and limited productivity and spontaneity. Mood described as okay. Her affect was odd and subdued. Thought process was organized but superficial. Thought content: Patient denied any suicidal or homicidal ideation, though there were no reports of delusions but patient was quite guarded, she denied auditory hallucinations and denied visual hallucinations but did appear to be responding to internal stimuli. Attention and concentration appeared limited and memory appeared unreliable but none were formally tested. She is alert and oriented x person and place. Insight, judgment and impulse control were impaired. Vitals/I&O/Wt Last Vital Signs Temp 98.1 F 01/31/25 06:00 Pulse 102 H 01/31/25 06:00 Resp 16 01/31/25 06:00 BP 107/71 01/31/25 06:00 Pulse Ox 97 01/31/25 06:00 O2 Del Method Room Air 01/30/25 14:00 01/31/25 01/31/25 01/31/25 06:59 14:59 22:59 Intake Total 480 / 480 Balance 480 / 480 Data NPU 12/26/24 19:27 12/26/24 19:27 A&P Assessment and plan (1) Psychosis: (2) Adjustment disorder: (3) Cluster B personality disorder: (4) Chronic post-traumatic stress disorder: (5) Amphetamine addiction: (6) Anxiety and depression: (7) Withdrawal from methamphetamine: (8) Methamphetamine intoxication: Plan This is a 44-year-old white female known from past admissions with reported extended history of trauma, intellectual disability, significant addiction and 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 Reduce invega 3mg daily. Patient given invega IM 234mg on 01/07/25. Last Invega IM 156mg given 01/13/25. Next injection due 02/11/2025. 2. Patient now on 21 day hold. 3. Obtain collateral information. 4. Encourage individual, group and milieu therapy. 5. Continue every 15 minute checks for safety. 6. Encourage sober living treatment after discharge at at the highest level of care to which she is willing to commit. 7. Patient to enter [facility] program. B. Obtain REBECCA evaluation for assessment of cognitive functioning to assist in determination of readiness for discharge. REBECCA shows needs in 11 of 13 domains and so we will file for level 2 and likely pursue guardianship. 90-day hold hearing 01/24/2025 and patient placed on hold. Level 2 completed by Misbah and kathie today. Will continue seeking placement. PDMP PDMP Reviewed: Not Reviewed Involuntary Hold Information 2 Hold Status: Legal Status: 90 Day Hold Date/Time Hold Expires: 04/24/25 96 Hour Hold: 96 Hour Involuntary Admission: No Attestations NPU 2 Medical Necessity Statement*: Inpatient hospitalization is medically necessary and the clinically appropriate intervention at this time. We will monitor medications and make changes as indicated. The patient's likely length of stay 7-10 days. Coding Level of Care Code Acute Code for [facility] Fwd Diagnoses Psychosis F29 Adjustment disorder F43.20 Cluster B personality disorder F60.89 Chronic post-traumatic stress disorder F43.12 Amphetamine addiction F15.20 Anxiety and depression F41.9; F32.9 Withdrawal from methamphetamine F15.93 Methamphetamine intoxication F15.929
[2025-01-31 20:04] VITALS: BP 100/72; PULSE 88; RESP 16; TEMP 36.6; O2SAT 96
[2025-02-01 06:00] VITALS: BP 99/64; PULSE 107; RESP 16; TEMP 36.8; O2SAT 96
[2025-02-01] MEDS: nicotine 4 mg lozenge MUCOUS MEM (07:52)
[2025-02-01] MEDS: OLANZapine 5 mg ODT PO (07:52)
[2025-02-01] MEDS: paliperidone ER 3 mg Tablet PO (07:52)
[2025-02-01] MEDS: haloperidol 5 mg Tablet PO (09:07)
[2025-02-01] MEDS: hyDROXYzine 25 mg Capsule 50 MG PO (09:07)
[2025-02-01 14:00] VITALS: BP 98/68; PULSE 95; RESP 16; TEMP 36.7; O2SAT 97
--- NOTE | 2025-02-01 14:53 | P.NPUPN_ITS ---
Subjective NPU 2 Subjective: 44-year-old female with history of metha mphetamine abuse and psychosis currently on a 90-day hold. The patient reported no overall changes. She continued to remain confused on the milieu. She had made some attempt to elope today but was redirected. She had continued to wander along the milieu. She had continued to require redirection and prompting for completion of activities of daily living. She reported no side effects from her medication regimen. Mental Status Exam 2 MSE Comments: This is a slender, white female in hospital scrubs with poor grooming and eye contact. Poor dentition/absent teeth no abnormal movements except for psychomotor retardation. She was cooperative with exam in mild distress. Speech was more diminished in rate and volume and limited productivity and spontaneity. Mood described as good. Her affect was odd and subdued. Thought process was linear but superficial with some derailment noted. Thought content: Patient denied any suicidal or homicidal ideation, though there were no reports of delusions but patient was quite guarded, she denied auditory hallucinations and denied visual hallucinations but did appear to be responding to internal stimuli. Attention and concentration appeared limited and memory appeared unreliable but none were formally tested. She is alert and oriented x person and place. Insight, judgment and impulse control were impaired. Vitals/I&O/Wt Last Vital Signs Temp 98.3 F 02/01/25 06:00 Pulse 107 H 02/01/25 06:00 Resp 16 02/01/25 06:00 BP 99/64 02/01/25 06:00 Pulse Ox 96 02/01/25 06:00 O2 Del Method Room Air 01/31/25 14:00 Data NPU 12/26/24 19:27 12/26/24 19:27 A&P Assessment and plan (1) Psychosis: (2) Adjustment disorder: (3) Cluster B personality disorder: (4) Chronic post-traumatic stress disorder: (5) Amphetamine addiction: (6) Anxiety and depression: (7) Withdrawal from methamphetamine: (8) Methamphetamine intoxication: Plan This is a 44-year-old white female known from past admissions with reported extended history of trauma, intellectual disability, significant addiction and 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 Continue invega 3mg daily. Patient given invega IM 234mg on 01/07/25. Last Invega IM 156mg given 01/13/25. Next injection of invega 156mg IM due 02/11/2025. 2. Patient now on 21 day hold. 3. Obtain collateral information. 4. Encourage individual, group and milieu therapy. 5. Continue every 15 minute checks for safety. 6. Encourage sober living treatment after discharge at at the highest level of care to which she is willing to commit. 7. Patient to enter [facility] program. B. Obtain REBECCA evaluation for assessment of cognitive functioning to assist in determination of readiness for discharge. REBECCA shows needs in 11 of 13 domains and so we will file for level 2 and likely pursue guardianship. 90-day hold hearing 01/24/2025 and patient placed on hold. Level 2 completed by Misbah and kathie today. Patient accepted for placement at [facility], currently awaiting guardianship hearing now. PDMP PDMP Reviewed: Not Reviewed Involuntary Hold Information 2 Hold Status: Legal Status: 90 Day Hold Date/Time Hold Expires: 04/24/25 96 Hour Hold: 96 Hour Involuntary Admission: No Attestations NPU 2 Medical Necessity Statement*: Inpatient hospitalization is medically necessary and the clinically appropriate intervention at this time. We will monitor medications and make changes as indicated. The patient's likely length of stay 7-10 days. Coding Level of Care Code Acute Code for [facility] Fwd Diagnoses Psychosis F29 Adjustment disorder F43.20 Cluster B personality disorder F60.89 Chronic post-traumatic stress disorder F43.12 Amphetamine addiction F15.20 Anxiety and depression F41.9; F32.9 Withdrawal from methamphetamine F15.93 Methamphetamine intoxication F15.929
[2025-02-01 19:45] VITALS: BP 95/58; PULSE 86; RESP 17; TEMP 36.7; O2SAT 95
--- NOTE | 2025-02-02 06:18 | PC.NURSE ---
pt coffee pt came up to the nurses station and stated she spilled her coffee. this nurse went to clean it up, and pt states 'i poured my coffee on the floor because the bible told me to and i didn't want to lie'
[2025-02-02 06:32] VITALS: BP 111/70; PULSE 68; RESP 17; TEMP 36.7; O2SAT 95
[2025-02-02] MEDS: hyDROXYzine 25 mg Capsule 50 MG PO (08:30)
[2025-02-02] MEDS: paliperidone ER 3 mg Tablet PO (08:30)
[2025-02-02 14:00] VITALS: BP 118/78; PULSE 82; RESP 16; TEMP 36.8; O2SAT 100
--- NOTE | 2025-02-02 15:50 | P.NPUPN_ITS ---
Subjective NPU 2 Subjective: 44-year-old female with history of metha mphetamine abuse and psychosis currently on a 90-day hold. No substantial changes were appreciated today. She had appeared to be a good candidate for placement at [facility]. She was compliant and read up her directable with no attempts to elope. She had reported that she was feeling good. She had continued to have periods of time where she would be staring off in space in her room but minimized the presence of any distractions when asked whether she was seeing or hearing anything. She had denied any depressed mood at this time. She had reported having some problems with her memory as she stated that she had trouble remembering specific events from the past. Mental Status Exam 2 MSE Comments: This is a slender, white female in hospital scrubs with poor grooming and eye contact. Poor dentition/absent teeth no abnormal movements except for psychomotor retardation. She was cooperative with exam in mild distress. Speech was diminished in rate and volume and limited productivity and spontaneity. Mood described as okay. Her affect was odd and subdued. Thought process was linear but superficial with some derailment noted. Thought content: Patient denied any suicidal or homicidal ideation, though there were no reports of delusions but patient was quite guarded, she denied auditory hallucinations and denied visual hallucinations but did appear to be responding to internal stimuli. Attention and concentration appeared limited and memory appeared unreliable but none were formally tested. She is alert and oriented x person and place. Insight, judgment and impulse control were impaired. Vitals/I&O/Wt Last Vital Signs Temp 98.1 F 02/02/25 06:32 Pulse 68 02/02/25 06:32 Resp 17 02/02/25 06:32 BP 111/70 02/02/25 06:32 Pulse Ox 95 02/02/25 06:32 O2 Del Method Room Air 02/01/25 14:00 Data NPU 12/26/24 19:27 12/26/24 19:27 A&P Assessment and plan (1) Psychosis: (2) Adjustment disorder: (3) Cluster B personality disorder: (4) Chronic post-traumatic stress disorder: (5) Amphetamine addiction: (6) Anxiety and depression: (7) Withdrawal from methamphetamine: (8) Methamphetamine intoxication: Plan This is a 44-year-old white female known from past admissions with reported extended history of trauma, intellectual disability, significant addiction and 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 Continue invega 3mg daily. Patient given invega IM 234mg on 01/07/25. Last Invega IM 156mg given 01/13/25. Next injection of invega 156mg IM due 02/11/2025. 2. Patient now on 21 day hold. 3. Obtain collateral information. 4. Encourage individual, group and milieu therapy. 5. Continue every 15 minute checks for safety. 6. Encourage sober living treatment after discharge at at the highest level of care to which she is willing to commit. 7. Patient to enter [facility] program. B. Obtain REBECCA evaluation for assessment of cognitive functioning to assist in determination of readiness for discharge. REBECCA shows needs in 11 of 13 domains and so we will file for level 2 and likely pursue guardianship. 90-day hold hearing 01/24/2025 and patient placed on hold. Level 2 completed by Misbah and kathie on 01/30/25. Patient provisionally accepted for placement at [facility], currently awaiting guardianship hearing now. PDMP PDMP Reviewed: Not Reviewed Involuntary Hold Information 2 Hold Status: Legal Status: 90 Day Hold Date/Time Hold Expires: 04/24/25 96 Hour Hold: 96 Hour Involuntary Admission: No Attestations NPU 2 Medical Necessity Statement*: Inpatient hospitalization is medically necessary and the clinically appropriate intervention at this time. We will monitor medications and make changes as indicated. The patient's likely length of stay 7-10 days. Coding Level of Care Code Acute Code for [facility] Fwd Diagnoses Psychosis F29 Adjustment disorder F43.20 Cluster B personality disorder F60.89 Chronic post-traumatic stress disorder F43.12 Amphetamine addiction F15.20 Anxiety and depression F41.9; F32.9 Withdrawal from methamphetamine F15.93 Methamphetamine intoxication F15.929
[2025-02-02] MEDS: haloperidol 5 mg Tablet PO (20:27)
[2025-02-02 20:40] VITALS: BP 108/73; PULSE 87; RESP 15; TEMP 36.7; O2SAT 99
[2025-02-03] MEDS: nicotine 4 mg lozenge MUCOUS MEM ×2 (04:35→16:40)
[2025-02-03] MEDS: acetaminophen 325 mg Tablet 650 MG PO ×2 (04:43→16:42)
[2025-02-03 06:00] VITALS: BP 109/78; PULSE 98; RESP 18; TEMP 36.6; O2SAT 99
[2025-02-03] MEDS: paliperidone ER 3 mg Tablet PO (09:29)
[2025-02-03] MEDS: hyDROXYzine 25 mg Capsule 50 MG PO ×2 (09:29→20:19)
--- NOTE | 2025-02-03 13:50 | P.NPUPN_ITS ---
Subjective NPU 2 Subjective: 44-year-old female with history of metha mphetamine abuse and psychosis currently on a 90-day hold. The patient continue to isolate on the milieu. There was no acts of aggression. There was no evidence of elopement. She had continued to require assistance and prompting for completion of activities of daily living. She described her mood as fine. She had asked when she could go home but was informed that she would likely be going to another placement to stay for a longer period of time. She denied any cravings for any drugs or alcohol. She reported no side effects from her medications. Mental Status Exam 2 MSE Comments: This is a slender, white female in hospital scrubs with poor grooming and eye contact. Poor dentition/absent teeth no abnormal movements except for psychomotor retardation. She was cooperative with exam in mild distress. Speech was diminished in rate and volume and limited productivity and spontaneity. Mood described as good. Her affect was odd and subdued. Thought process was linear but superficial. Thought content: Patient denied any suicidal or homicidal ideation. She remained guarded and no overt delusions were reported. She denied auditory hallucinations and denied visual hallucinations but did appear to be responding to internal stimuli. Attention and concentration appeared limited and memory appeared unreliable but none were formally tested. She is alert and oriented x person and place. Insight, judgment and impulse control were impaired. Vitals/I&O/Wt Last Vital Signs Temp 97.8 F 02/03/25 06:00 Pulse 98 02/03/25 06:00 Resp 18 02/03/25 06:00 BP 109/78 02/03/25 06:00 Pulse Ox 99 02/03/25 06:00 O2 Del Method Room Air 02/03/25 06:00 Data NPU 12/26/24 19:27 12/26/24 19:27 A&P Assessment and plan (1) Psychosis: (2) Adjustment disorder: (3) Cluster B personality disorder: (4) Chronic post-traumatic stress disorder: (5) Amphetamine addiction: (6) Anxiety and depression: (7) Withdrawal from methamphetamine: (8) Methamphetamine intoxication: Plan This is a 44-year-old white female known from past admissions with reported extended history of trauma, intellectual disability, significant addiction and 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 Continue invega 3mg daily. Patient given invega IM 234mg on 01/07/25. Last Invega IM 156mg given 01/13/25. Next injection of invega 234mg IM due 02/12/2025. 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 2. Patient now on 21 day hold. 3. Obtain collateral information. 4. Encourage individual, group and milieu therapy. 5. Continue every 15 minute checks for safety. 6. Encourage sober living treatment after discharge at at the highest level of care to which she is willing to commit. 7. Patient to enter [facility] program. B. Obtain REBECCA evaluation for assessment of cognitive functioning to assist in determination of readiness for discharge. REBECCA shows needs in 11 of 13 domains and so we will file for level 2 and likely pursue guardianship. 90-day hold hearing 01/24/2025 and patient placed on hold. Level 2 completed by Misbah and kathie on 01/30/25. Patient provisionally accepted for placement at [facility], currently awaiting guardianship hearing now. PDMP PDMP Reviewed: Not Reviewed Involuntary Hold Information 2 Hold Status: Legal Status: 90 Day Hold Date/Time Hold Expires: 04/24/25 96 Hour Hold: 96 Hour Involuntary Admission: No Attestations NPU 2 Medical Necessity Statement*: Inpatient hospitalization is medically necessary and the clinically appropriate intervention at this time. We will monitor medications and make changes as indicated. The patient's likely length of stay 7-10 days. Coding Level of Care Code Acute Code for [facility] Fwd Diagnoses Psychosis F29 Adjustment disorder F43.20 Cluster B personality disorder F60.89 Chronic post-traumatic stress disorder F43.12 Amphetamine addiction F15.20 Anxiety and depression F41.9; F32.9 Withdrawal from methamphetamine F15.93 Methamphetamine intoxication F15.929
[2025-02-03 14:00] VITALS: BP 110/77; PULSE 107; RESP 16; TEMP 36.6; O2SAT 98
[2025-02-03 20:15] VITALS: BP 103/69; PULSE 81; RESP 17; TEMP 36.6; O2SAT 91; BMI 22.4
[2025-02-03] MEDS: haloperidol 5 mg Tablet PO (20:19)
[2025-02-04 06:00] VITALS: BP 109/71; PULSE 96; RESP 17; TEMP 36.7; O2SAT 98
[2025-02-04] MEDS: benztropine 1 mg Tablet PO (09:24)
[2025-02-04] MEDS: hyDROXYzine 25 mg Capsule 50 MG PO ×2 (09:24→20:21)
[2025-02-04] MEDS: paliperidone ER 3 mg Tablet PO (09:24)
[2025-02-04] MEDS: nicotine 4 mg lozenge MUCOUS MEM ×2 (09:24→14:03)
--- NOTE | 2025-02-04 10:33 | P.NPUPN_ITS ---
Subjective NPU 2 Subjective: 44-year-old female with history of metha mphetamine abuse and psychosis currently on a 90-day hold awaiting guardianship hearing. The patient continued to remain confused. She stated that she wanted to get on disability and at the same time she wanted to get a job. She reported that she wished to become a people person. Patient had continued to report feeling lonely at times as she had stated that she had not had any visitors recently. She reported no problems with sleep. She had continued to require some prompting for completion of activities of daily living. She had remained somewhat isolative on the milieu. She minimized any cravings for amphetamines at this time. Mental Status Exam 2 MSE Comments: This is a slender, white female in hospital scrubs with poor grooming and eye contact. Poor dentition/absent teeth no abnormal movements except for psychomotor retardation. She was cooperative with exam in mild distress. Speech was diminished in rate and volume but more spontaneous today. Mood described as fine. Her affect was subdued and mood incongruent. Thought process was linear but derailed later. Thought content: Patient denied any suicidal or homicidal ideation. She remained guarded and no overt delusions were reported. She denied auditory hallucinations and denied visual hallucinations but did appear to be responding to internal stimuli. Attention and concentration appeared limited and memory appeared unreliable but none were formally tested. She is alert and oriented x person and place. Insight, judgment and impulse control were impaired. Vitals/I&O/Wt Last Vital Signs Temp 98.0 F 02/04/25 06:00 Pulse 96 02/04/25 06:00 Resp 17 02/04/25 06:00 BP 109/71 02/04/25 06:00 Pulse Ox 98 02/04/25 06:00 O2 Del Method Room Air 02/04/25 06:00 Weight last 48 hrs Weight 68.946 kg Data NPU 12/26/24 19:27 12/26/24 19:27 A&P Assessment and plan (1) Psychosis: (2) Adjustment disorder: (3) Cluster B personality disorder: (4) Chronic post-traumatic stress disorder: (5) Amphetamine addiction: (6) Anxiety and depression: (7) Withdrawal from methamphetamine: (8) Methamphetamine intoxication: Plan This is a 44-year-old white female known from past admissions with reported extended history of trauma, intellectual disability, significant addiction and 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 Continue invega 3mg daily. Patient given invega IM 234mg on 01/07/25. Last Invega IM 156mg given 01/13/25. Next injection of invega 234mg IM due 02/12/2025. 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 2. Patient now on 21 day hold. 3. Obtain collateral information. 4. Encourage individual, group and milieu therapy. 5. Continue every 15 minute checks for safety. 6. Encourage sober living treatment after discharge at at the highest level of care to which she is willing to commit. 7. Patient to enter [facility] program. B. Obtain REBECCA evaluation for assessment of cognitive functioning to assist in determination of readiness for discharge. REBECCA shows needs in 11 of 13 domains and so we will file for level 2 and likely pursue guardianship. 90-day hold hearing 01/24/2025 and patient placed on hold. Level 2 completed by Misbah and associates on 01/30/25. Patient provisionally accepted for placement at [facility], currently awaiting guardianship hearing now. PDMP PDMP Reviewed: Not Reviewed Involuntary Hold Information 2 Hold Status: Legal Status: 90 Day Hold Date/Time Hold Expires: 04/24/25 96 Hour Hold: 96 Hour Involuntary Admission: No Attestations NPU 2 Medical Necessity Statement*: Inpatient hospitalization is medically necessary and the clinically appropriate intervention at this time. We will monitor medications and make changes as indicated. The patient's likely length of stay 7-10 days. Coding Level of Care Code Acute Code for [facility] Fwd Diagnoses Psychosis F29 Adjustment disorder F43.20 Cluster B personality disorder F60.89 Chronic post-traumatic stress disorder F43.12 Amphetamine addiction F15.20 Anxiety and depression F41.9; F32.9 Withdrawal from methamphetamine F15.93 Methamphetamine intoxication F15.929
[2025-02-04 14:00] VITALS: BP 112/72; PULSE 98; RESP 16; TEMP 36.6; O2SAT 99
[2025-02-04 20:13] VITALS: BP 99/64; PULSE 88; RESP 17; TEMP 36.8; O2SAT 98
[2025-02-04] MEDS: haloperidol 5 mg Tablet PO (20:21)
[2025-02-05 06:00] VITALS: BP 96/75; PULSE 90; RESP 18; TEMP 36.6; O2SAT 95
[2025-02-05] MEDS: paliperidone ER 3 mg Tablet PO (08:40)
[2025-02-05 13:45] VITALS: BP 97/59; PULSE 77; RESP 15; O2SAT 98
[2025-02-05] MEDS: nicotine 2 mg Gum BUCCAL (16:04)
--- NOTE | 2025-02-05 16:40 | P.NPUPN_ITS ---
Subjective NPU 2 Subjective: 44-year-old female with history of metha mphetamine abuse and psychosis currently on a 90-day hold awaiting guardianship hearing. The patient had been less isolative today. She had reported that she was feeling better. She continued to ask questions regarding where she may be going and stated that she wished to go home. She had reported no side effects from her current medication regimen. She had shown some improvement and completion of activities of daily living today. She reported no sleep continuity disruption or difficulties with falling asleep. Mental Status Exam 2 MSE Comments: This is a slender, tall white female in hospital scrubs with poor grooming and eye contact. Poor dentition/absent teeth no abnormal movements except for psychomotor retardation. She was cooperative with exam in mild distress. Speech was diminished in rate and volume but more spontaneous today. Mood described as okay. Her affect was subdued and mood incongruent. Thought process was linear but very superficial. Thought content: Patient denied any suicidal or homicidal ideation. She remained guarded and no overt delusions were reported. She denied auditory hallucinations and denied visual hallucinations and did appear to be responding to internal stimuli. Attention and concentration appeared limited and memory appeared unreliable but none were formally tested. She is alert and oriented x person and place. Insight, judgment and impulse control were impaired. Vitals/I&O/Wt Last Vital Signs Temp 97.9 F 02/05/25 06:00 Pulse 77 02/05/25 13:45 Resp 15 02/05/25 13:45 BP 97/59 02/05/25 13:45 Pulse Ox 98 02/05/25 13:45 O2 Del Method Room Air 02/05/25 06:00 Weight last 48 hrs Weight 68.946 kg Data NPU 12/26/24 19:27 12/26/24 19:27 A&P Assessment and plan (1) Psychosis: (2) Adjustment disorder: (3) Cluster B personality disorder: (4) Chronic post-traumatic stress disorder: (5) Amphetamine addiction: (6) Anxiety and depression: (7) Withdrawal from methamphetamine: (8) Methamphetamine intoxication: Plan This is a 44-year-old white female known from past admissions with reported extended history of trauma, intellectual disability, significant addiction and 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 Continue invega 3mg daily. Patient given invega IM 234mg on 5/11/25. Last Invega IM 156mg given 01/13/25. Next injection of invega 234mg IM due 02/12/2025. 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 2. Patient now on 21 day hold. 3. Obtain collateral information. 4. Encourage individual, group and milieu therapy. 5. Continue every 15 minute checks for safety. 6. Encourage sober living treatment after discharge at at the highest level of care to which she is willing to commit. 7. Patient to enter [facility] program. B. Obtain REBECCA evaluation for assessment of cognitive functioning to assist in determination of readiness for discharge. REBECCA shows needs in 11 of 13 domains and so we will file for level 2 and likely pursue guardianship. 90-day hold hearing 01/24/2025 and patient placed on hold. Level 2 completed by Misbah and kathie on 01/30/25. Patient provisionally accepted for placement at [facility], currently awaiting guardianship hearing now. PDMP PDMP Reviewed: Not Reviewed Involuntary Hold Information 2 Hold Status: Legal Status: 90 Day Hold Date/Time Hold Expires: 04/24/25 96 Hour Hold: 96 Hour Involuntary Admission: No Attestations NPU 2 Medical Necessity Statement*: Inpatient hospitalization is medically necessary and the clinically appropriate intervention at this time. We will monitor medications and make changes as indicated. The patient's likely length of stay based upon the guardianship hearing date but likely 10-14 days. Coding Level of Care Code Acute Code for g Fwd Diagnoses Psychosis F29 Adjustment disorder F43.20 Cluster B personality disorder F60.89 Chronic post-traumatic stress disorder F43.12 Amphetamine addiction F15.20 Anxiety and depression F41.9; F32.9 Withdrawal from methamphetamine F15.93 Methamphetamine intoxication F15.929
[2025-02-05 19:17] VITALS: BP 113/68; PULSE 80; RESP 18; TEMP 36.6
[2025-02-06 06:00] VITALS: BP 102/76; PULSE 98; RESP 18; TEMP 36.5; O2SAT 99
[2025-02-06] MEDS: nicotine 4 mg lozenge MUCOUS MEM ×2 (06:32→08:01)
[2025-02-06] MEDS: paliperidone ER 3 mg Tablet PO (08:01)
[2025-02-06] MEDS: hyDROXYzine 25 mg Capsule 50 MG PO ×2 (08:01→15:14)
--- NOTE | 2025-02-06 13:59 | P.NPUPN_ITS ---
Subjective NPU 2 Subjective: 44-year-old female with history of metha mphetamine abuse and psychosis currently on a 90-day hold awaiting guardianship hearing. The patient had reported no side effects from her medications. She had continued to isolate herself on the milieu. The patient was awaiting a potential hearing in [facility] for guardianship. The patient reported that she would like visitors. She had reported some feelings of loneliness. She had denied any depression. She appeared to understand that she would likely need to be staying indefinitely in a long-term due to the continued mental health issues associated with her previous methamphetamine use. She had denied any cravings for methamphetamine at this time. Mental Status Exam 2 MSE Comments: This is a slender, tall white female in hospital scrubs with poor grooming and eye contact. Poor dentition/absent teeth no abnormal movements except for psychomotor retardation. She was pleasant and cooperative with exam in mild distress. Speech was diminished in rate and volume but more spontaneous today. Mood described as allright. Her affect was subdued and mood incongruent. Thought process was linear but very superficial. Thought content: Patient denied any suicidal or homicidal ideation. She remained guarded and no overt delusions were reported. She denied auditory hallucinations and denied visual hallucinations and did not appear to be responding to internal stimuli. Attention and concentration appeared limited and memory appeared unreliable but none were formally tested. She is alert and oriented x person and place. Insight, judgment and impulse control were impaired. 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 Continue invega 3mg daily. Patient given invega IM 234mg on 01/07/25. Last Invega IM 156mg given 01/13/25. Next injection of invega 234mg IM due 02/12/2025. 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 2. Patient now on 21 day hold. 3. Obtain collateral information. 4. Encourage individual, group and milieu therapy. 5. Continue every 15 minute checks for safety. 6. Encourage sober living treatment after discharge at at the highest level of care to which she is willing to commit. 7. Patient to enter [facility] program. B. Obtain REBECCA evaluation for assessment of cognitive functioning to assist in determination of readiness for discharge. REBECCA shows needs in 11 of 13 domains and so we will file for level 2 and likely pursue guardianship. 90-day hold hearing 01/24/2025 and patient placed on hold. Level 2 completed by Yoav on 01/30/25. Patient provisionally accepted for placement at [facility], currently awaiting guardianship hearing scheduling. PDMP PDMP Reviewed: Not Reviewed Involuntary Hold Information 2 Hold Status: Legal Status: 90 Day Hold Date/Time Hold Expires: 04/24/25 96 Hour Hold: 96 Hour Involuntary Admission: No Attestations NPU 2 Medical Necessity Statement*: Inpatient hospitalization is medically necessary and the clinically appropriate intervention at this time. We will monitor medications and make changes as indicated. The patient's likely length of stay based upon the guardianship hearing date but likely 10-14 days. Coding Level of Care Code Acute Code for g Fwd Diagnoses Psychosis F29 Adjustment disorder F43.20 Cluster B personality disorder F60.89 Chronic post-traumatic stress disorder F43.12 Amphetamine addiction F15.20 Anxiety and depression F41.9; F32.9
[2025-02-06 14:00] VITALS: BP 103/70; PULSE 79; RESP 16; TEMP 36.6; O2SAT 97
[2025-02-06] MEDS: acetaminophen 325 mg Tablet 650 MG PO (15:14)
[2025-02-06 19:43] VITALS: BP 105/69; PULSE 90; RESP 16; TEMP 36.7; O2SAT 97
[2025-02-07 05:59] VITALS: BP 108/60; PULSE 80; RESP 16; O2SAT 98
[2025-02-07] MEDS: paliperidone ER 3 mg Tablet PO (08:06)
[2025-02-07] MEDS: acetaminophen 325 mg Tablet 650 MG PO ×2 (08:54→13:23)
[2025-02-07] MEDS: OLANZapine 5 mg ODT PO (08:55)
--- NOTE | 2025-02-07 12:28 | CT_ITS ---
WS: [id number] CT HEAD NONCONTRAST HISTORY: Headache and stiff neck TECHNIQUE: Contiguous axial imaging performed through the brain. Bone and soft tissue windows. Sagittal and coronal reformats reviewed. All CT scans at [facility] use at least one of these dose optimization techniques: automated exposure control; mA and/or kV adjustment per patient size (includes targeted exams where dose is matched to clinical indication); or iterative reconstruction. DLP: 1089.03 mGy.cm COMPARISON: 01/10/2019 No acute intracranial hemorrhage, midline shift or mass effect. Reidentified is the RIGHT basal ganglia lacunar infarct versus perivascular space. No new infarcts or masses. Ventricles: Normal size with no hydrocephalus. Mild ectopia of the cerebellar tonsils. No Chiari malformation. Paranasal sinuses: As visualized are clear. Mastoid air cells: Well pneumatized. Calvarium and scalp: Skull is intact with no soft tissue edema or swelling. CT/CT head wo con* 17607 IMPRESSION: 1. Stable noncontrast head CT. No acute interval change. 2. No paranasal sinus disease.
--- NOTE | 2025-02-07 13:04 | PC.NURSE ---
pt back on unit
[2025-02-07] MEDS: hyDROXYzine 25 mg Capsule 50 MG PO (13:23)
[2025-02-07 14:00] VITALS: BP 99/67; PULSE 93; TEMP 36.9; O2SAT 100
--- NOTE | 2025-02-07 15:11 | P.NPUPN_ITS ---
Subjective NPU 2 Subjective: 44-year-old female with history of metha mphetamine abuse and psychosis currently on a 90-day hold awaiting guardianship hearing. The patient had reported that she had hit her forehead and complained of pain in her forehead as well as in the back of her neck. She had reported that she had felt tired. She had been more isolative than usual on the milieu. She reported struggles with pain. The patient had reported no side effects from her medications. Patient denied any depressed mood at this time. She denied any feelings of hopelessness or worthlessness. She had continued to request having family come visit her but was nonspecific about who would come see her. Mental Status Exam 2 MSE Comments: This is a slender, tall white female in hospital scrubs with poor grooming and eye contact. She was seen lying in the bed in the dark with some signficant distress today. Poor dentition/absent teeth no abnormal movements except for psychomotor retardation. She was pleasant and cooperative with exam but appeared in some pain. Speech was diminished in rate and volume but more spontaneous today. Mood described as not good. Her affect was subdued and mood congruent. Thought process was linear but very superficial. Thought content: Patient denied any suicidal or homicidal ideation. She remained guarded and no overt delusions were reported. She denied auditory hallucinations and denied visual hallucinations and did not appear to be responding to internal stimuli. Attention and concentration appeared limited and memory appeared unreliable but none were formally tested. She is alert and oriented x person and place. Insight, judgment and impulse control were impaired. Vitals/I&O/Wt Last Vital Signs Temp 98.4 F 02/07/25 14:00 Pulse 93 02/07/25 14:00 Resp 16 02/07/25 05:59 BP 99/67 02/07/25 14:00 Pulse Ox 100 02/07/25 14:00 O2 Del Method Room Air 02/07/25 14:00 02/07/25 02/07/25 02/07/25 06:59 14:59 22:59 Intake Total 960 / 960 Balance 960 / 960 Data NPU 12/26/24 19:27 12/26/24 19:27 A&P Assessment and plan (1) Psychosis: (2) Adjustment disorder: (3) Cluster B personality disorder: (4) Chronic post-traumatic stress disorder: (5) Amphetamine addiction: (6) Anxiety and depression: Plan This is a 44-year-old white female known from past admissions with reported extended history of trauma, intellectual disability, significant addiction and 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 Continue invega 3mg daily. Patient given invega IM 234mg on 01/07/25. Last Invega IM 156mg given 01/13/25. Next injection of invega 234mg IM due 02/12/2025. 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 2. Patient now on 21 day hold. 3. Obtain collateral information. 4. Encourage individual, group and milieu therapy. 5. Continue every 15 minute checks for safety. 6. Encourage sober living treatment after discharge at at the highest level of care to which she is willing to commit. 7. Check CT head, restart gabapentin as previously prescribed.-begin gabapentin 200mg tid. B. Obtain REBECCA evaluation for assessment of cognitive functioning to assist in determination of readiness for discharge. REBECCA shows needs in 11 of 13 domains and so we will file for level 2 and likely pursue guardianship. 90-day hold hearing 01/24/2025 and patient placed on hold. Level 2 completed by Misbah and kathie on 01/30/25. Patient provisionally accepted for placement at [facility], currently awaiting guardianship hearing scheduling. PDMP PDMP Reviewed: Not Reviewed Involuntary Hold Information 2 Hold Status: Legal Status: 90 Day Hold Date/Time Hold Expires: 04/24/25 96 Hour Hold: 96 Hour Involuntary Admission: No Attestations NPU 2 Medical Necessity Statement*: Inpatient hospitalization is medically necessary and the clinically appropriate intervention at this time. We will monitor medications and make changes as indicated. The patient's likely length of stay based upon the guardianship hearing date but likely 10-14 days. Coding Level of Care Code Acute Code for g Fwd Diagnoses Psychosis F29 Adjustment disorder F43.20 Cluster B personality disorder F60.89 Chronic post-traumatic stress disorder F43.12 Amphetamine addiction F15.20 Anxiety and depression F41.9; F32.9
[2025-02-07 19:31] VITALS: BP 108/68; PULSE 88; RESP 16; TEMP 36.9; O2SAT 95
[2025-02-07] MEDS: gabapentin 100 mg Capsule 200 MG PO (19:51)
[2025-02-07] MEDS: nicotine 4 mg lozenge MUCOUS MEM (19:56)
[2025-02-08 06:00] VITALS: BP 93/71; PULSE 101; RESP 16; O2SAT 98
[2025-02-08] MEDS: nicotine 4 mg lozenge MUCOUS MEM ×2 (06:25→16:19)
[2025-02-08] MEDS: paliperidone ER 3 mg Tablet PO (08:55)
[2025-02-08] MEDS: gabapentin 100 mg Capsule 200 MG PO (08:55)
[2025-02-08] MEDS: hyDROXYzine 25 mg Capsule 50 MG PO ×2 (10:39→22:00)
[2025-02-08] MEDS: ibuprofen 600 mg Tablet PO (12:23)
--- NOTE | 2025-02-08 12:56 | P.NPUPN_ITS ---
Subjective NPU 2 Subjective: 44-year-old female with history of metha mphetamine abuse and psychosis currently on a 90-day hold awaiting guardianship hearing. The patient had not reported having neck pain or headaches today. She had reported good success at managing her anxiety with gabapentin along with her neck pain. She had reported no side effects from the initiation of gabapentin yesterday. She reported that she wished to have visitors and asked when she would be ready to go home. The patient was informed of the plan for her to be under guardianship due to her inability to care for herself. She continued to at times ask questions repeatedly to numerous staff members. She had requested that she see her ex- boyfriend and requested that the ad copy writer call him to have him come to visit. She had endorsed some feelings of loneliness. She had continued to require some prompting for tending to routine activities of daily living. Mental Status Exam 2 MSE Comments: This is a slender, tall white female in hospital scrubs with poor grooming and eye contact. She was pleasant and more cooperative today. Poor dentition/absent teeth no abnormal movements except for psychomotor retardation. She appeared in no acute distress today. Speech was diminished in rate and volume but more spontaneous today. Mood described as okay. Her affect was subdued and mood congruent. Thought process was linear but very superficial. Thought content: Patient denied any suicidal or homicidal ideation. She remained guarded and no overt delusions were reported. She denied auditory hallucinations and denied visual hallucinations and did not appear to be responding to internal stimuli. Attention and concentration appeared limited and memory appeared unreliable but none were formally tested. She is alert and oriented x person and place. Insight, judgment were poor and impulse control was poor. 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 Continue invega 3mg daily until 02/12/25 until Invega IM 234mg given on 02/12/25. Patient given invega IM 234mg on 01/07/25. Last Invega IM 156mg given 01/13/25. Next injection of invega 234mg IM due 02/12/2025. 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 2. Patient now on 21 day hold. 3. Obtain collateral information. 4. Encourage individual, group and milieu therapy. 5. Continue every 15 minute checks for safety. 6. Encourage sober living treatment after discharge at at the highest level of care to which she is willing to commit. 7. Check CT head, restart gabapentin as previously prescribed.-begin gabapentin 200mg tid. B. Obtain REBECCA evaluation for assessment of cognitive functioning to assist in determination of readiness for discharge. REBECCA shows needs in 11 of 13 domains and so we will file for level 2 and likely pursue guardianship. 90-day hold hearing 01/24/2025 and patient placed on hold. Level 2 completed by Misbah and associates on 01/30/25. Patient provisionally accepted for placement at [facility], currently awaiting guardianship hearing scheduling. PDMP PDMP Reviewed: Not Reviewed Involuntary Hold Information 2 Hold Status: Legal Status: 90 Day Hold Date/Time Hold Expires: 04/24/25 96 Hour Hold: 96 Hour Involuntary Admission: No Attestations NPU 2 Medical Necessity Statement*: Inpatient hospitalization is medically necessary and the clinically appropriate intervention at this time. We will monitor medications and make changes as indicated. The patient's likely length of stay based upon the guardianship hearing date but likely 10-14 days. Coding Level of Care Code Acute Code for [facility] Fwd Diagnoses Psychosis F29 Adjustment disorder F43.20 Cluster B personality disorder F60.89 Chronic post-traumatic stress disorder F43.12 Amphetamine addiction F15.20 Anxiety and depression F41.9; F32.9
[2025-02-08] MEDS: OLANZapine 5 mg ODT PO (13:11)
[2025-02-08] MEDS: gabapentin 100 mg Capsule 300 MG PO ×2 (13:44→22:00)
[2025-02-08 14:00] VITALS: BP 119/79; PULSE 97; RESP 18; TEMP 36.6
[2025-02-08] MEDS: acetaminophen 325 mg Tablet 650 MG PO (15:39)
[2025-02-08 20:54] VITALS: BP 103/63; PULSE 91; RESP 16; TEMP 36.7; O2SAT 96
[2025-02-08] MEDS: trazodone 50 mg Tablet PO (22:00)
[2025-02-09] MEDS: acetaminophen 325 mg Tablet 650 MG PO ×3 (04:12→13:29)
[2025-02-09 06:00] VITALS: BP 107/71; PULSE 98; RESP 16; O2SAT 97
[2025-02-09] MEDS: gabapentin 100 mg Capsule 300 MG PO ×3 (08:13→19:53)
[2025-02-09] MEDS: nicotine 4 mg lozenge MUCOUS MEM (08:13)
[2025-02-09] MEDS: paliperidone ER 3 mg Tablet PO (08:13)
--- NOTE | 2025-02-09 10:29 | W.PM.NPUPNS ---
Subjective NPU Subjective: Patient presented today reporting that she is doing all right. She endorsed having a headache but otherwise things were in the normal range. We talked about the conversation she had with Dr. Palmer about Clozaril and the possibility of making that change and she endorsed possibly being open to that. We discussed going in greater detail tomorrow about the blood draws excetra and possibly getting started. She denied any specific side effects to medications. Mental Status Exam MSE Comments: This is a slender, tall white female in hospital scrubs with poor grooming and eye contact. She was pleasant and more cooperative today. Poor dentition/absent teeth no abnormal movements except for psychomotor retardation. She appeared in no acute distress today. Speech was diminished in rate and volume but more spontaneous today. Mood described as okay. Her affect was subdued and mood congruent. Thought process was linear but very superficial. Thought content: Patient denied any suicidal or homicidal ideation. She remained guarded and no overt delusions were reported. She denied auditory hallucinations and denied visual hallucinations and did not appear to be responding to internal stimuli. Attention and concentration appeared limited and memory appeared unreliable but none were formally tested. She is alert and oriented x person and place. Insight, judgment were poor and impulse control was poor. 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 Continue invega 3mg daily until 02/12/25 until Invega IM 234mg given on 02/12/25. Patient given invega IM 234mg on 01/07/25. Last Invega IM 156mg given 01/13/25. Next injection of invega 234mg IM due 02/12/2025. 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 2. Patient now on 21 day hold. 3. Obtain collateral information. 4. Encourage individual, group and milieu therapy. 5. Continue every 15 minute checks for safety. 6. Encourage sober living treatment after discharge at at the highest level of care to which she is willing to commit. 7. Check CT head, restart gabapentin as previously prescribed.-begin gabapentin 200mg tid. B. Obtain REBECCA evaluation for assessment of cognitive functioning to assist in determination of readiness for discharge. REBECCA shows needs in 11 of 13 domains and so we will file for level 2 and likely pursue guardianship. 90-day hold hearing 01/24/2025 and patient placed on hold. Level 2 completed by Misbah and kathie on 01/30/25. Patient provisionally accepted for placement at [facility], currently awaiting guardianship hearing scheduling. PDMP PDMP Reviewed: Not Reviewed Involuntary Hold Information Hold Status: Legal Status: 90 Day Hold Date/Time Hold Expires: 04/24/25 96 Hour Hold: 96 Hour Involuntary Admission: No Attestations NPU Medical Necessity Statement*: Inpatient hospitalization is medically necessary and the clinically appropriate intervention at this time. We will monitor medications and make changes as indicated. The patient's likely length of stay based upon the guardianship hearing date but likely 10-14 days. Coding Level of Care Code Acute Code for [facility] Fwd Diagnoses Psychosis F29 Adjustment disorder F43.20 Cluster B personality disorder F60.89 Chronic post-traumatic stress disorder F43.12 Amphetamine addiction F15.20 Anxiety and depression F41.9; F32.9
[2025-02-09 14:00] VITALS: BP 94/63; PULSE 130; RESP 16; TEMP 36.8
[2025-02-09] MEDS: haloperidol 5 mg Tablet PO (19:53)
[2025-02-09 21:09] VITALS: BP 108/72; PULSE 104; RESP 16; TEMP 36.7; O2SAT 98
[2025-02-10] MEDS: acetaminophen 325 mg Tablet 650 MG PO ×2 (03:25→16:03)
[2025-02-10] MEDS: OLANZapine 5 mg ODT PO (03:25)
[2025-02-10 06:00] VITALS: RESP 16
[2025-02-10] MEDS: haloperidol 5 mg Tablet PO ×2 (09:31→20:02)
[2025-02-10] MEDS: gabapentin 100 mg Capsule 300 MG PO ×3 (09:31→20:03)
[2025-02-10] MEDS: paliperidone ER 3 mg Tablet PO (09:31)
[2025-02-10 14:00] VITALS: BP 103/69; PULSE 79; RESP 16; TEMP 36.8; O2SAT 98
--- NOTE | 2025-02-10 18:38 | P.NPUPN_ITS ---
Subjective NPU 2 Subjective: Patient presented today continuing to report issues of headache and neck pain. We discussed her working with the nurse for some relief. He continues to discuss Clozaril and likely getting a blood draw when determining whether there are any issues that would argue against that. She denied any side effects to medication. Mental Status Exam 2 MSE Comments: This is a slender, tall white female in hospital scrubs with poor grooming and eye contact. She was pleasant and more cooperative today. Poor dentition/absent teeth no abnormal movements except for psychomotor retardation. She appeared in no acute distress today. Speech was diminished in rate and volume but more spontaneous today. Mood described as okay. Her affect was subdued and mood congruent. Thought process was linear but very superficial. Thought content: Patient denied any suicidal or homicidal ideation. She remained guarded and no overt delusions were reported. She denied auditory hallucinations and denied visual hallucinations and did not appear to be responding to internal stimuli. Attention and concentration appeared limited and memory appeared unreliable but none were formally tested. She is alert and oriented x person and place. Insight, judgment were poor and impulse control was poor. 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 Continue invega 3mg daily until 02/12/25 until Invega IM 234mg given on 02/12/25. Patient given invega IM 234mg on 01/07/25. Last Invega IM 156mg given 01/13/25. Next injection of invega 234mg IM due 02/12/2025. 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 Will try to evaluate the significant other thought disorder to consider Clozaril. 2. Patient now on 21 day hold. 3. Obtain collateral information. 4. Encourage individual, group and milieu therapy. 5. Continue every 15 minute checks for safety. 6. Encourage sober living treatment after discharge at at the highest level of care to which she is willing to commit. 7. Check CT head, restart gabapentin as previously prescribed.-begin gabapentin 200mg tid. B. Obtain REBECCA evaluation for assessment of cognitive functioning to assist in determination of readiness for discharge. REBECCA shows needs in 11 of 13 domains and so we will file for level 2 and likely pursue guardianship. 90-day hold hearing 01/24/2025 and patient placed on hold. Level 2 completed by Misbah and kathie on 01/30/25. Patient provisionally accepted for placement at [facility], currently awaiting guardianship hearing scheduling. PDMP PDMP Reviewed: Not Reviewed Involuntary Hold Information 2 Hold Status: Legal Status: 90 Day Hold Date/Time Hold Expires: 04/24/25 96 Hour Hold: 96 Hour Involuntary Admission: No Attestations NPU 2 Medical Necessity Statement*: Inpatient hospitalization is medically necessary and the clinically appropriate intervention at this time. We will monitor medications and make changes as indicated. The patient's likely length of stay based upon the guardianship hearing date but likely 10-14 days. Coding Level of Care Code Acute Code for [facility] Fwd Diagnoses Psychosis F29 Adjustment disorder F43.20 Cluster B personality disorder F60.89 Chronic post-traumatic stress disorder F43.12 Amphetamine addiction F15.20 Anxiety and depression F41.9; F32.9
[2025-02-10 20:45] VITALS: BP 112/77; PULSE 84; RESP 16; TEMP 37.1; O2SAT 98
[2025-02-11] MEDS: hyDROXYzine 25 mg Capsule 50 MG PO ×3 (03:36→15:37)
[2025-02-11 06:00] VITALS: RESP 16
[2025-02-11] MEDS: haloperidol 5 mg Tablet PO ×4 (08:28→19:55)
[2025-02-11] MEDS: gabapentin 100 mg Capsule 300 MG PO ×3 (08:28→19:55)
--- NOTE | 2025-02-11 08:30 | PC.NURSE ---
Pt up at the nurses station waiting on medications, scanned pt's arm band and pt sat down on the floor. Pt stated that the picture on my badge told her to sit down. Pt was administered Haldol 5mg PO for visual hallucinations.
--- NOTE | 2025-02-11 08:53 | W.PM.NPUPNS ---
Subjective NPU Subjective: Patient presented today reporting that things are going fairly well. She continues to seem somewhat distressed and we discussed the risk benefits and alternatives of initiating lab work so we can initiate Clozaril and she understood and agreed to proceed as documented in this note. Mental Status Exam MSE Comments: This is a slender, tall white female in hospital scrubs with poor grooming and eye contact. She was pleasant and more cooperative today. Poor dentition/absent teeth no abnormal movements except for psychomotor retardation. She appeared in no acute distress today. Speech was diminished in rate and volume but more spontaneous today. Mood described as okay. Her affect was subdued and mood congruent. Thought process was linear but very superficial. Thought content: Patient denied any suicidal or homicidal ideation. She remained guarded and no overt delusions were reported. She denied auditory hallucinations and denied visual hallucinations and did not appear to be responding to internal stimuli. Attention and concentration appeared limited and memory appeared unreliable but none were formally tested. She is alert and oriented x person and place. Insight, judgment were poor and impulse control was poor. Vitals/I&O/Wt Last Vital Signs Temp 98.8 F 02/10/25 20:45 Pulse 84 02/10/25 20:45 Resp 16 02/11/25 06:00 BP 112/77 02/10/25 20:45 Pulse Ox 98 02/10/25 20:45 O2 Del Method Room Air 02/10/25 14:00 Weight last 48 hrs Weight 89.448 kg Data NPU 02/11/25 11:35 02/11/25 11:35 A&P Assessment and plan (1) Psychosis: (2) Adjustment disorder: (3) Cluster B personality disorder: (4) Chronic post-traumatic stress disorder: (5) Amphetamine addiction: (6) Anxiety and depression: Plan This is a 44-year-old white female known from past admissions with reported extended history of trauma, intellectual disability, significant addiction and 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 Continue invega 3mg daily until 02/12/25 until Invega IM 234mg given on 02/12/25. Patient given invega IM 234mg on 01/07/25. Last Invega IM 156mg given 01/13/25. Next injection of invega 234mg IM due 02/12/2025. 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 Will try to evaluate the significant other thought disorder to consider Clozaril. 2. Patient now on 21 day hold. Obtain lab to prepare for initiation of Clozaril. 3. Obtain collateral information. 4. Encourage individual, group and milieu therapy. 5. Continue every 15 minute checks for safety. 6. Encourage sober living treatment after discharge at at the highest level of care to which she is willing to commit. 7. Check CT head, restart gabapentin as previously prescribed.-begin gabapentin 200mg tid. B. Obtain REBECCA evaluation for assessment of cognitive functioning to assist in determination of readiness for discharge. REBECCA shows needs in 11 of 13 domains and so we will file for level 2 and likely pursue guardianship. 90-day hold hearing 01/24/2025 and patient placed on hold. Level 2 completed by Misbah and kathie on 01/30/25. Patient provisionally accepted for placement at [facility], currently awaiting guardianship hearing scheduling. PDMP PDMP Reviewed: Not Reviewed Involuntary Hold Information Hold Status: Legal Status: 90 Day Hold Date/Time Hold Expires: 04/24/25 96 Hour Hold: 96 Hour Involuntary Admission: No Attestations NPU Medical Necessity Statement*: Inpatient hospitalization is medically necessary and the clinically appropriate intervention at this time. We will monitor medications and make changes as indicated. The patient's likely length of stay based upon the guardianship hearing date but likely 10-14 days. Coding Level of Care Code Acute Code for [facility] Fwd Diagnoses Psychosis F29 Adjustment disorder F43.20 Cluster B personality disorder F60.89 Chronic post-traumatic stress disorder F43.12 Amphetamine addiction F15.20 Anxiety and depression F41.9; F32.9
[2025-02-11] MEDS: acetaminophen 325 mg Tablet 650 MG PO ×2 (09:16→15:37)
[2025-02-11 11:43] LABS: Basophils % 0.2 %; Eosinophils % 0.8 %; Hematocrit 40.2 % (36-47); Lymphocytes # 1.3 10^3/uL (0.8-4.8); Lymphocytes % 25.3 %; Mean Corpuscular HGB Conc 32.1 g/dL (30-55); Mean Corpuscular Hemoglobin 29.4 pg (27-33); Mean Corpuscular Volume 91.6 fl (85-98); Mean Platelet Volume 10.6 fL (7.4-10.4); Monocytes # 0.4 10^3/uL (0.2-0.9); Monocytes % 6.6 %; Neutrophils # 3.54 10^3/uL (1.8-7.7); Neutrophils % 66.9 %; Nucleated Red Blood Cells % 0 %; Platelet Count 153 10^3/cmm (157-399); Red Blood Count 4.39 10^6/uL (3.85-5.65); Red Cell Distribution Width 12.7 % (12.1-15.1); White Blood Count 5.29 10^3/uL (3.29-11.43)
--- NOTE | 2025-02-11 11:45 | PC.NURSE ---
Pt all of the sudden got down on the floor in the hallway and licked the floor. Pt was encouraged by nursing staff to make better choices and that the floor is very dirty.
--- NOTE | 2025-02-11 11:47 | PC.NURSE ---
Pt was wandering into other pt's rooms and hovering over a sleeping pt. Pt also took a book from the other pt's room.
[2025-02-11 12:01] LABS: Alanine Aminotransferase 190 U/L (0-33); Albumin Level 4.2 g/dL (3.5-5.2); Alkaline Phosphatase 58 U/L (35-105); Anion Gap 14.8 (5-19); Aspartate Amino Transferase 96 U/L (0-32); Blood Urea Nitrogen 19 mg/dL (6-20); Calcium 9.2 mg/dL (8.5-10.5); Carbon Dioxide 24 mmol/L (22-29); Chloride 104 mmol/L (98-107); Creatinine Clr Calc Pharmacy 144.0951; Globulin 3.2 g/dL (1.3-4.6); Glomerular Filtration Rate 109.1 mL/min (90-130); Glucose 112 mg/dL (65-115); Osmolality Calculated 291 mOsm/kg (285-295); Potassium 3.8 mmol/L (3.5-5.1); Sodium 139 mmol/L (136-145); Total Bilirubin 0.4 mg/dL (0.15-1.2); Total Protein 7.4 g/dL (6.6-8.7)
[2025-02-11] MEDS: ibuprofen 600 mg Tablet PO (12:35)
[2025-02-11] MEDS: OLANZapine 5 mg ODT PO (12:35)
[2025-02-11] MEDS: diphenhydrAMINE 50 mg Capsule PO (12:35)
[2025-02-11 14:00] VITALS: BP 104/71; PULSE 102; RESP 16; TEMP 36.8; O2SAT 94
[2025-02-11] MEDS: paliperidone palmitate 234 mg Syringe IM (14:27)
[2025-02-11] MEDS: nicotine 4 mg lozenge MUCOUS MEM (15:33)
[2025-02-11] MEDS: benztropine 1 mg Tablet PO (19:55)
[2025-02-11 20:55] VITALS: BP 95/61; PULSE 89; RESP 16; TEMP 36.8; O2SAT 96
[2025-02-12 06:00] VITALS: BP 95/59; PULSE 87; RESP 16; O2SAT 97
[2025-02-12] MEDS: gabapentin 100 mg Capsule 300 MG PO ×3 (08:14→20:33)
[2025-02-12] MEDS: OLANZapine 5 mg ODT PO (08:43)
[2025-02-12 14:00] VITALS: BP 107/70; PULSE 80; RESP 16; TEMP 36.5; O2SAT 98
--- NOTE | 2025-02-12 14:35 | P.NPUPN_ITS ---
Subjective NPU 2 Subjective: Patient presented today reporting no changes. She actually appeared to be less isolative being seen out of her room more often per staff reports and direct observation. We continue to discuss initiating Clozaril and discussed the risks, benefits and alternatives of starting it tomorrow morning and she understood and agreed to proceed as is documented in this note. She denied any side effects of her current medication. Mental Status Exam 2 MSE Comments: This is a slender, tall white female in hospital scrubs with poor grooming and eye contact. She was pleasant and more cooperative today. Poor dentition/absent teeth no abnormal movements except for psychomotor retardation. She appeared in no acute distress today. Speech was diminished in rate and volume but more spontaneous today. Mood described as okay. Her affect was subdued and mood congruent. Thought process was linear but very superficial. Thought content: Patient denied any suicidal or homicidal ideation. She remained guarded and no overt delusions were reported. She denied auditory hallucinations and denied visual hallucinations and did not appear to be responding to internal stimuli. Attention and concentration appeared limited and memory appeared unreliable but none were formally tested. She is alert and oriented x person and place. Insight, judgment were poor and impulse control was poor. Vitals/I&O/Wt Last Vital Signs Temp 97.7 F 02/12/25 14:00 Pulse 80 02/12/25 14:00 Resp 16 02/12/25 14:00 BP 107/70 02/12/25 14:00 Pulse Ox 98 02/12/25 14:00 O2 Del Method Room Air 02/12/25 14:00 02/11/25 02/12/25 02/12/25 22:59 06:59 14:59 Intake Total 0 / 0 Balance 0 / 0 Weight last 48 hrs Weight 89.448 kg Data NPU 02/11/25 11:35 02/11/25 11:35 A&P Assessment and plan (1) Psychosis: (2) Adjustment disorder: (3) Cluster B personality disorder: (4) Chronic post-traumatic stress disorder: (5) Amphetamine addiction: (6) Anxiety and depression: Plan This is a 44-year-old white female known from past admissions with reported extended history of trauma, intellectual disability, significant addiction and 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 Continue invega 3mg daily until 02/12/25 until Invega IM 234mg given on 02/12/25. Patient given invega IM 234mg on 01/07/25. Last Invega IM 156mg given 01/13/25. Next injection of invega 234mg IM due 02/12/2025. 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 Will try to evaluate the significant other thought disorder to consider Clozaril. Studies suggest that Invega and clozapine can work well together. Will start clozapine 25 mg every morning tomorrow and have increases the more likely in the evening dose. Her CBC did show platelets at borderline low. Will continue to monitor and would recommend discontinuing clozapine if platelets get to 100,000 or less. Next lab draw 02/18/2025. 2. Patient now on 21 day hold. 3. Obtain collateral information. 4. Encourage individual, group and milieu therapy. 5. Continue every 15 minute checks for safety. 6. Encourage sober living treatment after discharge at at the highest level of care to which she is willing to commit. 7. Check CT head, restart gabapentin as previously prescribed.-begin gabapentin 200mg tid. B. Obtain REBECCA evaluation for assessment of cognitive functioning to assist in determination of readiness for discharge. REBECCA shows needs in 11 of 13 domains and so we will file for level 2 and likely pursue guardianship. 90-day hold hearing 01/24/2025 and patient placed on hold. Level 2 completed by Misbah and kathie on 01/30/25. Patient provisionally accepted for placement at [facility], currently awaiting guardianship hearing scheduling. PDMP PDMP Reviewed: Not Reviewed Involuntary Hold Information 2 Hold Status: Legal Status: 90 Day Hold Date/Time Hold Expires: 04/24/25 96 Hour Hold: 96 Hour Involuntary Admission: No Attestations NPU 2 Medical Necessity Statement*: Inpatient hospitalization is medically necessary and the clinically appropriate intervention at this time. We will monitor medications and make changes as indicated. The patient's likely length of stay based upon the guardianship hearing date but likely 10-14 days. Coding Level of Care Code Acute Code for [facility] Fwd Diagnoses Psychosis F29 Adjustment disorder F43.20 Cluster B personality disorder F60.89 Chronic post-traumatic stress disorder F43.12 Amphetamine addiction F15.20 Anxiety and depression F41.9; F32.9
[2025-02-12 20:12] VITALS: BP 106/70; PULSE 70; RESP 18; TEMP 36.8; O2SAT 97
[2025-02-13 06:00] VITALS: RESP 16
[2025-02-13] MEDS: cloZAPine 25 mg Tablet PO (07:43)
[2025-02-13] MEDS: gabapentin 100 mg Capsule 300 MG PO ×3 (07:43→19:20)
[2025-02-13] MEDS: OLANZapine 5 mg ODT PO (08:01)
[2025-02-13 08:06] VITALS: BP 99/62; PULSE 96; RESP 16; TEMP 37.4; O2SAT 97
[2025-02-13] MEDS: acetaminophen 325 mg Tablet 650 MG PO (09:46)
[2025-02-13] MEDS: nicotine 4 mg lozenge MUCOUS MEM (13:25)
[2025-02-13 13:44] VITALS: BP 97/64; PULSE 127; RESP 18; TEMP 36.6
--- NOTE | 2025-02-13 14:55 | W.PM.NPUPNS ---
Subjective NPU Subjective: Patient presented today reporting that she is doing okay. She reports that there were no problems with the initial dose of Clozaril. We discussed continuing to titrate the dose in hopes of getting some improvement given how she is shown very limited improvement after early gains with the Invega. She denies any side effects to the medication. Mental Status Exam MSE Comments: This is a slender, tall white female in hospital scrubs with poor grooming and eye contact. She was pleasant and more cooperative today. Poor dentition/absent teeth no abnormal movements except for psychomotor retardation. She appeared in no acute distress today. Speech was diminished in rate and volume but more spontaneous today. Mood described as okay. Her affect was subdued and mood congruent. Thought process was linear but very superficial. Thought content: Patient denied any suicidal or homicidal ideation. She remained guarded and no overt delusions were reported. She denied auditory hallucinations and denied visual hallucinations and did not appear to be responding to internal stimuli. Attention and concentration appeared limited and memory appeared unreliable but none were formally tested. She is alert and oriented x person and place. Insight, judgment were poor and impulse control was poor. 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 Continue invega 3mg daily until 02/12/25 until Invega IM 234mg given on 02/12/25. Patient given invega IM 234mg on 01/07/25. Last Invega IM 156mg given 01/13/25. Next injection of invega 234mg IM due 02/12/2025. 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 Will try to evaluate the significant other thought disorder to consider Clozaril. Studies suggest that Invega and clozapine can work well together. Will start clozapine 25 mg every morning tomorrow and have increases the more likely in the evening dose. Her CBC did show platelets at borderline low. Will continue to monitor and would recommend discontinuing clozapine if platelets get to 100,000 or less. Next lab draw 02/18/2025. Patient denied any problem with medication. Will add an evening dose tomorrow likely. 2. Patient now on 21 day hold. 3. Obtain collateral information. 4. Encourage individual, group and milieu therapy. 5. Continue every 15 minute checks for safety. 6. Encourage sober living treatment after discharge at at the highest level of care to which she is willing to commit. 7. Check CT head, restart gabapentin as previously prescribed.-begin gabapentin 200mg tid. B. Obtain REBECCA evaluation for assessment of cognitive functioning to assist in determination of readiness for discharge. REBECCA shows needs in 11 of 13 domains and so we will file for level 2 and likely pursue guardianship. 90-day hold hearing 01/24/2025 and patient placed on hold. Level 2 completed by Misbah and kathie on 01/30/25. Patient provisionally accepted for placement at [facility], currently awaiting guardianship hearing scheduling. PDMP PDMP Reviewed: Not Reviewed Involuntary Hold Information Hold Status: Legal Status: 90 Day Hold Date/Time Hold Expires: 04/24/25 96 Hour Hold: 96 Hour Involuntary Admission: No Attestations NPU Medical Necessity Statement*: Inpatient hospitalization is medically necessary and the clinically appropriate intervention at this time. We will monitor medications and make changes as indicated. The patient's likely length of stay based upon the guardianship hearing date but likely 10-14 days. Coding Level of Care Code Acute Code for [facility] Fwd Diagnoses Psychosis F29 Adjustment disorder F43.20 Cluster B personality disorder F60.89 Chronic post-traumatic stress disorder F43.12 Amphetamine addiction F15.20 Anxiety and depression F41.9; F32.9
[2025-02-13] MEDS: ibuprofen 600 mg Tablet PO (17:34)
[2025-02-13 19:18] VITALS: BP 112/51; PULSE 73; RESP 18; TEMP 37; O2SAT 95
[2025-02-14] MEDS: acetaminophen 325 mg Tablet 650 MG PO (05:20)
[2025-02-14 06:00] VITALS: BP 103/62; PULSE 70; RESP 18; O2SAT 100
[2025-02-14] MEDS: nicotine 4 mg lozenge MUCOUS MEM ×2 (06:53→08:30)
[2025-02-14] MEDS: cloZAPine 25 mg Tablet PO (08:14)
[2025-02-14] MEDS: gabapentin 100 mg Capsule 300 MG PO ×3 (08:14→20:59)
[2025-02-14] MEDS: nicotine 21 mg Patch 1 PATCH TRANSDERMA (11:04)
[2025-02-14 14:00] VITALS: BP 103/70; PULSE 109; RESP 16; TEMP 36.9; O2SAT 96
[2025-02-14] MEDS: hyDROXYzine 25 mg Capsule 50 MG PO (16:29)
--- NOTE | 2025-02-14 17:59 | P.NPUPN_ITS ---
Subjective NPU 2 Subjective: Patient presented today reporting that things are going okay. For the second day in a row she was lobbying to be placed back on methadone. Part of this was related to her saying that she was having some pain but she was asking the same question yesterday without any reports of significant pain. We discussed wanting to get her mental health situation managed before we even consider anything like that. Otherwise she denied any side effects to the medication and we discussed the risks, benefits and alternatives of increasing her Clozaril tomorrow and she understood and agreed to proceed as is documented in this note. Mental Status Exam 2 MSE Comments: This is a slender, tall white female in hospital scrubs with poor grooming and eye contact. She was pleasant and more cooperative today. Poor dentition/absent teeth no abnormal movements except for psychomotor retardation. She appeared in no acute distress today. Speech was diminished in rate and volume but more spontaneous today. Mood described as okay. Her affect was subdued and mood congruent. Thought process was linear but very superficial. Thought content: Patient denied any suicidal or homicidal ideation. She remained guarded and no overt delusions were reported. She denied auditory hallucinations and denied visual hallucinations and did not appear to be responding to internal stimuli. Attention and concentration appeared limited and memory appeared unreliable but none were formally tested. She is alert and oriented x person and place. Insight, judgment were poor and impulse control was poor. Vitals/I&O/Wt Last Vital Signs Temp 98.4 F 02/14/25 20:10 Pulse 88 02/14/25 20:10 Resp 16 02/14/25 20:10 BP 109/81 02/14/25 20:10 Pulse Ox 95 02/14/25 20:10 O2 Del Method Room Air 02/14/25 14:00 Intake Total 0 / 0 0 / 0 Balance 0 / 0 0 / 0 Data NPU 02/11/25 11:35 02/11/25 11:35 A&P Assessment and plan (1) Psychosis: (2) Adjustment disorder: (3) Cluster B personality disorder: (4) Chronic post-traumatic stress disorder: (5) Amphetamine addiction: (6) Anxiety and depression: Plan This is a 44-year-old white female known from past admissions with reported extended history of trauma, intellectual disability, significant addiction and 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 Continue invega 3mg daily until 02/12/25 until Invega IM 234mg given on 02/12/25. Patient given invega IM 234mg on 01/07/25. Last Invega IM 156mg given 01/13/25. Next injection of invega 234mg IM due 02/12/2025. 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 Will try to evaluate the significant other thought disorder to consider Clozaril. Studies suggest that Invega and clozapine can work well together. Will start clozapine 25 mg every morning tomorrow and have increases the more likely in the evening dose. Her CBC did show platelets at borderline low. Will continue to monitor and would recommend discontinuing clozapine if platelets get to 100,000 or less. Next lab draw 02/18/2025. Patient denied any problem with medication. Will add Clozaril 50 mg p.o. nightly tomorrow. 2. Patient now on 21 day hold. 3. Obtain collateral information. 4. Encourage individual, group and milieu therapy. 5. Continue every 15 minute checks for safety. 6. Encourage sober living treatment after discharge at at the highest level of care to which she is willing to commit. 7. Check CT head, restart gabapentin as previously prescribed.-begin gabapentin 200mg tid. B. Obtain REBECCA evaluation for assessment of cognitive functioning to assist in determination of readiness for discharge. REBECCA shows needs in 11 of 13 domains and so we will file for level 2 and likely pursue guardianship. 90-day hold hearing 01/24/2025 and patient placed on hold. Level 2 completed by Misbah and kathie on 01/30/25. Patient provisionally accepted for placement at [facility], currently awaiting guardianship hearing scheduling. PDMP PDMP Reviewed: Not Reviewed Involuntary Hold Information 2 Hold Status: Legal Status: 90 Day Hold Date/Time Hold Expires: 04/24/25 96 Hour Hold: 96 Hour Involuntary Admission: No Attestations NPU 2 Medical Necessity Statement*: Inpatient hospitalization is medically necessary and the clinically appropriate intervention at this time. We will monitor medications and make changes as indicated. The patient's likely length of stay based upon the guardianship hearing date but likely 10-14 days. Coding Level of Care Code Acute Code for [facility] Fwd Diagnoses Psychosis F29 Adjustment disorder F43.20 Cluster B personality disorder F60.89 Chronic post-traumatic stress disorder F43.12 Amphetamine addiction F15.20 Anxiety and depression F41.9; F32.9
[2025-02-14 20:10] VITALS: BP 109/81; PULSE 88; RESP 16; TEMP 36.9; O2SAT 95
[2025-02-15] MEDS: acetaminophen 325 mg Tablet 650 MG PO ×3 (04:45→22:44)
[2025-02-15 06:00] VITALS: BP 93/64; PULSE 98; RESP 16; O2SAT 96
[2025-02-15] MEDS: gabapentin 100 mg Capsule 300 MG PO ×3 (08:24→22:40)
[2025-02-15] MEDS: cloZAPine 25 mg Tablet PO (08:24)
--- NOTE | 2025-02-15 10:28 | PC.NURSE ---
Verbal order from Dr. Borges for weekly lab draw.
[2025-02-15] MEDS: hyDROXYzine 25 mg Capsule 50 MG PO ×3 (11:24→22:40)
[2025-02-15] MEDS: ibuprofen 600 mg Tablet PO (12:24)
[2025-02-15] MEDS: benztropine 1 mg Tablet PO (13:24)
[2025-02-15] MEDS: nicotine 4 mg lozenge MUCOUS MEM (13:24)
[2025-02-15] MEDS: haloperidol 5 mg Tablet PO (13:24)
[2025-02-15 14:00] VITALS: BP 113/74; PULSE 111; RESP 17; TEMP 36.8; O2SAT 98
--- NOTE | 2025-02-15 17:42 | W.PM.NPUPNS ---
Subjective NPU Subjective: Patient presented today reporting that she is doing okay. She denied any problems or side effects with her introduction to Clozaril. We discussed the fact that she would get a 50 mg dose tonight which would be the first increase. We discussed that she would get blood draws every week on the same day in the beginning prior to moving to every 2 weeks in about 6 months. We reviewed the social work notes and the fact that we might be closer to her having a guardianship hearing. She denied any side effects to her medications. Mental Status Exam MSE Comments: This is a slender, tall white female in hospital scrubs with poor grooming and eye contact. She was pleasant and more cooperative today. Poor dentition/absent teeth no abnormal movements except for psychomotor retardation. She appeared in no acute distress today. Speech was diminished in rate and volume but more spontaneous today. Mood described as okay. Her affect was subdued and mood congruent. Thought process was linear but very superficial. Thought content: Patient denied any suicidal or homicidal ideation. She remained guarded and no overt delusions were reported. She denied auditory hallucinations and denied visual hallucinations and did not appear to be responding to internal stimuli. Attention and concentration appeared limited and memory appeared unreliable but none were formally tested. She is alert and oriented x person and place. Insight, judgment were poor and impulse control was poor. Vitals/I&O/Wt Last Vital Signs Temp 98.2 F 02/15/25 14:00 Pulse 91 02/15/25 19:43 Resp 17 02/15/25 19:43 BP 110/70 02/15/25 19:43 Pulse Ox 97 02/15/25 19:43 O2 Del Method Room Air 02/15/25 14:00 02/15/25 14:59 Intake Total 480 / 480 Balance 480 / 480 Data NPU 02/11/25 11:35 02/11/25 11:35 A&P Assessment and plan (1) Psychosis: (2) Adjustment disorder: (3) Cluster B personality disorder: (4) Chronic post-traumatic stress disorder: (5) Amphetamine addiction: (6) Anxiety and depression: Plan This is a 44-year-old white female known from past admissions with reported extended history of trauma, intellectual disability, significant addiction and 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 Continue invega 3mg daily until 02/12/25 until Invega IM 234mg given on 02/12/25. Patient given invega IM 234mg on 01/07/25. Last Invega IM 156mg given 01/13/25. Next injection of invega 234mg IM due 02/12/2025. 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 Will try to evaluate the significant other thought disorder to consider Clozaril. Studies suggest that Invega and clozapine can work well together. Will start clozapine 25 mg every morning tomorrow and have increases the more likely in the evening dose. Her CBC did show platelets at borderline low. Will continue to monitor and would recommend discontinuing clozapine if platelets get to 100,000 or less. Next lab draw 02/18/2025. Patient denied any problem with medication. Will add Clozaril 50 mg p.o. nightly tomorrow. 2. Patient now on 21 day hold. 3. Obtain collateral information. 4. Encourage individual, group and milieu therapy. 5. Continue every 15 minute checks for safety. 6. Encourage sober living treatment after discharge at at the highest level of care to which she is willing to commit. 7. Check CT head, restart gabapentin as previously prescribed.-begin gabapentin 200mg tid. B. Obtain REBECCA evaluation for assessment of cognitive functioning to assist in determination of readiness for discharge. REBECCA shows needs in 11 of 13 domains and so we will file for level 2 and likely pursue guardianship. 90-day hold hearing 01/24/2025 and patient placed on hold. Level 2 completed by Misbah and kathie on 01/30/25. Patient provisionally accepted for placement at [facility], currently awaiting guardianship hearing scheduling. PDMP PDMP Reviewed: Not Reviewed Involuntary Hold Information Hold Status: Legal Status: 90 Day Hold Date/Time Hold Expires: 04/24/25 96 Hour Hold: 96 Hour Involuntary Admission: No Attestations NPU Medical Necessity Statement*: Inpatient hospitalization is medically necessary and the clinically appropriate intervention at this time. We will monitor medications and make changes as indicated. The patient's likely length of stay based upon the guardianship hearing date but likely 10-14 days. Coding Level of Care Code Acute Code for Chg Fwd Diagnoses Psychosis F29 Adjustment disorder F43.20 Cluster B personality disorder F60.89 Chronic post-traumatic stress disorder F43.12 Amphetamine addiction F15.20 Anxiety and depression F41.9; F32.9
[2025-02-15 19:43] VITALS: BP 110/70; PULSE 91; RESP 17; O2SAT 97
[2025-02-15] MEDS: cloZAPine 25 mg Tablet 50 MG PO (22:41)
[2025-02-16] MEDS: OLANZapine 5 mg ODT PO (02:42)
[2025-02-16] MEDS: ibuprofen 600 mg Tablet PO (02:50)
[2025-02-16 06:00] VITALS: RESP 16
[2025-02-16] MEDS: gabapentin 100 mg Capsule 300 MG PO ×3 (09:00→20:23)
[2025-02-16] MEDS: cloZAPine 25 mg Tablet PO (09:00)
[2025-02-16] MEDS: acetaminophen 325 mg Tablet 650 MG PO ×2 (09:00→16:52)
[2025-02-16] MEDS: hyDROXYzine 25 mg Capsule 50 MG PO (09:00)
[2025-02-16 14:00] VITALS: BP 81/58; PULSE 123; RESP 16; TEMP 37; O2SAT 98
--- NOTE | 2025-02-16 15:57 | P.NPUPN_ITS ---
Subjective NPU 2 Subjective: Patient presented today reporting that she is doing all right. She reports she tolerated the increase in the Clozaril without any concerns. She endorsed feeling all right in general and denied any side effects to any of her medications. We discussed the fact that she might have a hearing for her guardianship next week. Mental Status Exam 2 MSE Comments: This is a slender, tall white female in hospital scrubs with poor grooming and eye contact. She was pleasant and more cooperative today. Poor dentition/absent teeth no abnormal movements except for psychomotor retardation. She appeared in no acute distress today. Speech was diminished in rate and volume but more spontaneous today. Mood described as okay. Her affect was subdued and mood congruent. Thought process was linear but very superficial. Thought content: Patient denied any suicidal or homicidal ideation. She remained guarded and no overt delusions were reported. She denied auditory hallucinations and denied visual hallucinations and did not appear to be responding to internal stimuli. Attention and concentration appeared limited and memory appeared unreliable but none were formally tested. She is alert and oriented x person and place. Insight, judgment were poor and impulse control was poor. 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 Continue invega 3mg daily until 02/12/25 until Invega IM 234mg given on 02/12/25. Patient given invega IM 234mg on 01/07/25. Last Invega IM 156mg given 01/13/25. Next injection of invega 234mg IM due 02/12/2025. 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 Will try to evaluate the significant other thought disorder to consider Clozaril. Studies suggest that Invega and clozapine can work well together. Will start clozapine 25 mg every morning tomorrow and have increases the more likely in the evening dose. Her CBC did show platelets at borderline low. Will continue to monitor and would recommend discontinuing clozapine if platelets get to 100,000 or less. Next lab draw 02/18/2025. Patient denied any problem with medication. Increased Clozaril to 50 mg p.o. nightly. Will consider next increase in the next 48 hours. 2. Patient now on 21 day hold. 3. Obtain collateral information. 4. Encourage individual, group and milieu therapy. 5. Continue every 15 minute checks for safety. 6. Encourage sober living treatment after discharge at at the highest level of care to which she is willing to commit. 7. Check CT head, restart gabapentin as previously prescribed.-begin gabapentin 200mg tid. B. Obtain REBECCA evaluation for assessment of cognitive functioning to assist in determination of readiness for discharge. REBECCA shows needs in 11 of 13 domains and so we will file for level 2 and likely pursue guardianship. 90-day hold hearing 01/24/2025 and patient placed on hold. Level 2 completed by Misbah and associates on 01/30/25. Patient provisionally accepted for placement at [facility], currently awaiting guardianship hearing scheduling. PDMP PDMP Reviewed: Not Reviewed Involuntary Hold Information 2 Hold Status: Legal Status: 90 Day Hold Date/Time Hold Expires: 04/24/25 96 Hour Hold: 96 Hour Involuntary Admission: No Attestations NPU 2 Medical Necessity Statement*: Inpatient hospitalization is medically necessary and the clinically appropriate intervention at this time. We will monitor medications and make changes as indicated. The patient's likely length of stay based upon the guardianship hearing date but likely 10-14 days. Coding Level of Care Code Acute Code for g Fwd Diagnoses Psychosis F29 Adjustment disorder F43.20 Cluster B personality disorder F60.89 Chronic post-traumatic stress disorder F43.12 Amphetamine addiction F15.20 Anxiety and depression F41.9; F32.9
[2025-02-16] MEDS: cloZAPine 25 mg Tablet 50 MG PO (20:23)
[2025-02-16] MEDS: haloperidol 5 mg Tablet PO (20:23)
[2025-02-16 22:00] VITALS: BP 105/68; PULSE 98; RESP 16; TEMP 36.7; O2SAT 95
[2025-02-17 06:00] VITALS: BP 105/75; PULSE 88; RESP 16; TEMP 36.8; O2SAT 97
[2025-02-17] MEDS: gabapentin 100 mg Capsule 300 MG PO ×3 (09:01→20:00)
[2025-02-17] MEDS: cloZAPine 25 mg Tablet PO (09:01)
[2025-02-17] MEDS: hyDROXYzine 25 mg Capsule 50 MG PO ×2 (09:01→13:50)
[2025-02-17] MEDS: ibuprofen 600 mg Tablet PO (09:01)
[2025-02-17] MEDS: acetaminophen 325 mg Tablet 650 MG PO (12:53)
[2025-02-17 14:00] VITALS: BP 100/69; PULSE 91; RESP 16; TEMP 36.6; O2SAT 98
--- NOTE | 2025-02-17 15:25 | W.PM.NPUPNS ---
Subjective NPU Subjective: Patient presented today reporting that things are going fine. She reports that she is tolerating the Clozaril well and denied any specific side effects to it. We discussed the fact that it is our understanding that she might have her guardianship hearing this week and that she has a likely destination for discharge as soon as that is out of the way. She denied any side effects to her overall medications. She has complained of some headaches but she reports that related to some back and neck problems that she has and that she is asking for Tylenol or Motrin as required. Mental Status Exam MSE Comments: This is a slender, tall white female in hospital scrubs with poor grooming and eye contact. She was pleasant and more cooperative today. Poor dentition/absent teeth no abnormal movements except for psychomotor retardation. She appeared in no acute distress today. Speech was diminished in rate and volume but more spontaneous today. Mood described as okay. Her affect was subdued and mood congruent. Thought process was linear but very superficial. Thought content: Patient denied any suicidal or homicidal ideation. She remained guarded and no overt delusions were reported. She denied auditory hallucinations and denied visual hallucinations and did not appear to be responding to internal stimuli. Attention and concentration appeared limited and memory appeared unreliable but none were formally tested. She is alert and oriented x person and place. Insight, judgment were poor and impulse control was poor. Vitals/I&O/Wt Last Vital Signs Temp 97.9 F 02/17/25 14:00 Pulse 91 02/17/25 14:00 Resp 16 02/17/25 14:00 BP 100/69 02/17/25 14:00 Pulse Ox 98 02/17/25 14:00 O2 Del Method Room Air 02/17/25 14:00 Weight last 48 hrs Weight 74.843 kg Data NPU 02/18/25 10:05 02/11/25 11:35 A&P Assessment and plan (1) Psychosis: (2) Adjustment disorder: (3) Cluster B personality disorder: (4) Chronic post-traumatic stress disorder: (5) Amphetamine addiction: (6) Anxiety and depression: Plan This is a 44-year-old white female known from past admissions with reported extended history of trauma, intellectual disability, significant addiction and 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 Continue invega 3mg daily until 02/12/25 until Invega IM 234mg given on 02/12/25. Patient given invega IM 234mg on 01/07/25. Last Invega IM 156mg given 01/13/25. Next injection of invega 234mg IM due 02/12/2025. 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 Will try to evaluate the significant other thought disorder to consider Clozaril. Studies suggest that Invega and clozapine can work well together. Will start clozapine 25 mg every morning tomorrow and have increases the more likely in the evening dose. Her CBC did show platelets at borderline low. Will continue to monitor and would recommend discontinuing clozapine if platelets get to 100,000 or less. Next lab draw 02/18/2025. Patient denied any problem with medication. Increased Clozaril to 50 mg p.o. nightly. Will consider next increase in the next 48 hours. 2. Patient now on 21 day hold. 3. Obtain collateral information. 4. Encourage individual, group and milieu therapy. 5. Continue every 15 minute checks for safety. 6. Encourage sober living treatment after discharge at at the highest level of care to which she is willing to commit. 7. Check CT head, restart gabapentin as previously prescribed.-begin gabapentin 200mg tid. B. Obtain REBECCA evaluation for assessment of cognitive functioning to assist in determination of readiness for discharge. REBECCA shows needs in 11 of 13 domains and so we will file for level 2 and likely pursue guardianship. 90-day hold hearing 01/24/2025 and patient placed on hold. Level 2 completed by Misbah and kathie on 01/30/25. Patient provisionally accepted for placement at [facility], currently awaiting guardianship hearing scheduling. PDMP PDMP Reviewed: Not Reviewed Involuntary Hold Information Hold Status: Legal Status: 90 Day Hold Date/Time Hold Expires: 04/24/25 96 Hour Hold: 96 Hour Involuntary Admission: No Attestations NPU Medical Necessity Statement*: Inpatient hospitalization is medically necessary and the clinically appropriate intervention at this time. We will monitor medications and make changes as indicated. The patient's likely length of stay based upon the guardianship hearing date but likely 10-14 days. Coding Level of Care Code Acute Code for Chg Fwd Diagnoses Psychosis F29 Adjustment disorder F43.20 Cluster B personality disorder F60.89 Chronic post-traumatic stress disorder F43.12 Amphetamine addiction F15.20 Anxiety and depression F41.9; F32.9
[2025-02-17] MEDS: nicotine 4 mg lozenge MUCOUS MEM (16:14)
[2025-02-17] MEDS: haloperidol 5 mg Tablet PO (20:00)
[2025-02-17] MEDS: cloZAPine 25 mg Tablet 50 MG PO (20:00)
[2025-02-17 21:31] VITALS: BP 102/73; PULSE 101; RESP 16; TEMP 36.7; O2SAT 96
[2025-02-18 06:00] VITALS: BP 97/74; PULSE 75; RESP 16; O2SAT 98
[2025-02-18] MEDS: hyDROXYzine 25 mg Capsule 50 MG PO (09:29)
[2025-02-18] MEDS: ibuprofen 600 mg Tablet PO ×2 (09:29→14:35)
[2025-02-18] MEDS: gabapentin 100 mg Capsule 300 MG PO ×3 (09:29→20:13)
[2025-02-18] MEDS: cloZAPine 25 mg Tablet PO (09:30)
[2025-02-18 10:17] LABS: Eosinophils # 0.1 10^3/uL (0.0-0.8); Eosinophils % 2.1 %; Hematocrit 40.1 % (36-47); Lymphocytes # 1.3 10^3/uL (0.8-4.8); Lymphocytes % 32.9 %; Mean Corpuscular HGB Conc 31.7 g/dL (30-55); Mean Corpuscular Hemoglobin 29.7 pg (27-33); Mean Corpuscular Volume 93.7 fl (85-98); Mean Platelet Volume 10.5 fL (7.4-10.4); Monocytes # 0.3 10^3/uL (0.2-0.9); Monocytes % 8.9 %; Neutrophils # 2.13 10^3/uL (1.8-7.7); Neutrophils % 56.1 %; Nucleated Red Blood Cells % 0 %; Platelet Count 154 10^3/cmm (157-399); Red Blood Count 4.28 10^6/uL (3.85-5.65); Red Cell Distribution Width 13.1 % (12.1-15.1)
[2025-02-18] MEDS: acetaminophen 325 mg Tablet 650 MG PO ×2 (13:15→20:14)
[2025-02-18 14:00] VITALS: BP 112/74; PULSE 105; RESP 18; TEMP 36.9; O2SAT 97
[2025-02-18] MEDS: OLANZapine 5 mg ODT PO (14:35)
--- NOTE | 2025-02-18 17:46 | P.NPUPN_ITS ---
Subjective NPU 2 Subjective: Patient presented today reporting that things are going fairly well. She denied any issues or challenges overall. She is identified as unchanged per staff from the standpoint of any complaints or challenges. They do report that she seems more calm on the Clozaril. She denied any side effects to medication. Mental Status Exam 2 MSE Comments: This is a slender, tall white female in hospital scrubs with poor grooming and eye contact. She was pleasant and more cooperative today. Poor dentition/absent teeth no abnormal movements except for psychomotor retardation. She appeared in no acute distress today. Speech was diminished in rate and volume but more spontaneous today. Mood described as okay. Her affect was subdued and mood congruent. Thought process was linear but very superficial. Thought content: Patient denied any suicidal or homicidal ideation. She remained guarded and no overt delusions were reported. She denied auditory hallucinations and denied visual hallucinations and did not appear to be responding to internal stimuli. Attention and concentration appeared limited and memory appeared unreliable but none were formally tested. She is alert and oriented x person and place. Insight, judgment were poor and impulse control was poor. Vitals/I&O/Wt Last Vital Signs Temp 98.4 F 02/18/25 21:58 Pulse 112 H 02/18/25 21:58 Resp 16 02/18/25 21:58 BP 118/80 02/18/25 21:58 Pulse Ox 98 02/18/25 21:58 O2 Del Method Room Air 02/18/25 14:00 02/18/25 14:59 Intake Total 480 / 480 Balance 480 / 480 Weight last 48 hrs Weight 74.843 kg Data NPU 02/18/25 10:05 02/11/25 11:35 A&P Assessment and plan (1) Psychosis: (2) Adjustment disorder: (3) Cluster B personality disorder: (4) Chronic post-traumatic stress disorder: (5) Amphetamine addiction: (6) Anxiety and depression: Plan This is a 44-year-old white female known from past admissions with reported extended history of trauma, intellectual disability, significant addiction and 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 Continue invega 3mg daily until 02/12/25 until Invega IM 234mg given on 02/12/25. Patient given invega IM 234mg on 01/07/25. Last Invega IM 156mg given 01/13/25. Next injection of invega 234mg IM due 02/12/2025. 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 Will try to evaluate the significant other thought disorder to consider Clozaril. Studies suggest that Invega and clozapine can work well together. Will start clozapine 25 mg every morning tomorrow and have increases the more likely in the evening dose. Her CBC did show platelets at borderline low. Will continue to monitor and would recommend discontinuing clozapine if platelets get to 100,000 or less. Next lab draw 02/18/2025. Patient denied any problem with medication. Increased Clozaril to 50 mg p.o. nightly. Will likely increase Clozaril to 25 mg in the morning and 100 mg at night tomorrow. 2. Patient now on 21 day hold. 3. Obtain collateral information. 4. Encourage individual, group and milieu therapy. 5. Continue every 15 minute checks for safety. 6. Encourage sober living treatment after discharge at at the highest level of care to which she is willing to commit. 7. Check CT head, restart gabapentin as previously prescribed.-begin gabapentin 200mg tid. B. Obtain REBECCA evaluation for assessment of cognitive functioning to assist in determination of readiness for discharge. REBECCA shows needs in 11 of 13 domains and so we will file for level 2 and likely pursue guardianship. 90-day hold hearing 01/24/2025 and patient placed on hold. Level 2 completed by Misbah and kathie on 01/30/25. Patient provisionally accepted for placement at [facility], currently awaiting guardianship hearing scheduling. PDMP PDMP Reviewed: Not Reviewed Involuntary Hold Information 2 Hold Status: Legal Status: 90 Day Hold Date/Time Hold Expires: 04/24/25 96 Hour Hold: 96 Hour Involuntary Admission: No Attestations NPU 2 Medical Necessity Statement*: Inpatient hospitalization is medically necessary and the clinically appropriate intervention at this time. We will monitor medications and make changes as indicated. The patient's likely length of stay based upon the guardianship hearing date but likely 10-14 days. Coding Level of Care Code Acute Code for Chg Fwd Diagnoses Psychosis F29 Adjustment disorder F43.20 Cluster B personality disorder F60.89 Chronic post-traumatic stress disorder F43.12 Amphetamine addiction F15.20 Anxiety and depression F41.9; F32.9
[2025-02-18] MEDS: haloperidol 5 mg Tablet PO (20:13)
[2025-02-18] MEDS: cloZAPine 25 mg Tablet 50 MG PO (20:14)
[2025-02-18 21:58] VITALS: BP 118/80; PULSE 112; RESP 16; TEMP 36.9; O2SAT 98
[2025-02-19 06:00] VITALS: BP 109/78; PULSE 92; RESP 16; TEMP 36.7; O2SAT 98
[2025-02-19] MEDS: gabapentin 100 mg Capsule 300 MG PO ×3 (08:00→19:46)
[2025-02-19] MEDS: cloZAPine 25 mg Tablet PO (08:00)
[2025-02-19] MEDS: nicotine 4 mg lozenge MUCOUS MEM (08:33)
[2025-02-19] MEDS: acetaminophen 325 mg Tablet 650 MG PO (08:33)
[2025-02-19] MEDS: OLANZapine 5 mg ODT PO (09:57)
--- NOTE | 2025-02-19 11:32 | P.NPUPN_ITS ---
Subjective NPU 2 Subjective: Patient presented today reporting that she is feeling all right. She continues to be fairly isolative in her room. We discussed the risks, benefits and alternatives of increasing her Clozaril to 25 mg in the morning and 100 mg at night and she understood and agreed to proceed as documented in this note. We discussed that moving forward we would probably make increases of 50 mg that would be split daily so 25 mg p.o. twice daily increases instead of the increase at bedtime. She may have 1 more increase prior to likely discharge. We discussed that plan. She denied any side effects to medications. We discussed the likelihood of discharge on and if she has other guardianship hearing then. Mental Status Exam 2 MSE Comments: This is a slender, tall white female in hospital scrubs with poor grooming and eye contact. She was pleasant and more cooperative today. Poor dentition/absent teeth no abnormal movements except for psychomotor retardation. She appeared in no acute distress today. Speech was diminished in rate and volume but more spontaneous today. Mood described as okay. Her affect was subdued and mood congruent. Thought process was linear but very superficial. Thought content: Patient denied any suicidal or homicidal ideation. She remained guarded and no overt delusions were reported. She denied auditory hallucinations and denied visual hallucinations and did not appear to be responding to internal stimuli. Attention and concentration appeared limited and memory appeared unreliable but none were formally tested. She is alert and oriented x person and place. Insight, judgment were poor and impulse control was poor. Vitals/I&O/Wt Last Vital Signs Temp 98.0 F 02/19/25 06:00 Pulse 92 02/19/25 06:00 Resp 16 02/19/25 06:00 BP 109/78 02/19/25 06:00 Pulse Ox 98 02/19/25 06:00 O2 Del Method Room Air 02/18/25 14:00 02/18/25 02/19/25 02/19/25 22:59 06:59 14:59 Intake Total 240 / 720 Balance 240 / 720 Weight last 48 hrs Weight 74.843 kg Data NPU 02/18/25 10:05 02/11/25 11:35 A&P Assessment and plan (1) Psychosis: (2) Adjustment disorder: (3) Cluster B personality disorder: (4) Chronic post-traumatic stress disorder: (5) Amphetamine addiction: (6) Anxiety and depression: Plan This is a 44-year-old white female known from past admissions with reported extended history of trauma, intellectual disability, significant addiction and 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 Continue invega 3mg daily until 02/12/25 until Invega IM 234mg given on 02/12/25. Patient given invega IM 234mg on 01/07/25. Last Invega IM 156mg given 01/13/25. Next injection of invega 234mg IM due 02/12/2025. 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 Will try to evaluate the significant other thought disorder to consider Clozaril. Studies suggest that Invega and clozapine can work well together. Will start clozapine 25 mg every morning tomorrow and have increases the more likely in the evening dose. Her CBC did show platelets at borderline low. Will continue to monitor and would recommend discontinuing clozapine if platelets get to 100,000 or less. Next lab draw 02/18/2025. Patient denied any problem with medication. Increased Clozaril to 50 mg p.o. nightly. Will increase Clozaril to 25 mg in the morning and 100 mg at night. 2. Patient now on 21 day hold. 3. Obtain collateral information. 4. Encourage individual, group and milieu therapy. 5. Continue every 15 minute checks for safety. 6. Encourage sober living treatment after discharge at at the highest level of care to which she is willing to commit. 7. Check CT head, restart gabapentin as previously prescribed.-begin gabapentin 200mg tid. B. Obtain REBECCA evaluation for assessment of cognitive functioning to assist in determination of readiness for discharge. REBECCA shows needs in 11 of 13 domains and so we will file for level 2 and likely pursue guardianship. 90-day hold hearing 01/24/2025 and patient placed on hold. Level 2 completed by Misbah and kathie on 01/30/25. Patient provisionally accepted for placement at [facility], currently awaiting guardianship hearing scheduling. Guardianship hearing on we will attempt to get her discharge afternoon. PDMP PDMP Reviewed: Not Reviewed Involuntary Hold Information 2 Hold Status: Legal Status: 90 Day Hold Date/Time Hold Expires: 04/24/25 96 Hour Hold: 96 Hour Involuntary Admission: No Attestations NPU 2 Medical Necessity Statement*: Inpatient hospitalization is medically necessary and the clinically appropriate intervention at this time. We will monitor medications and make changes as indicated. The patient's likely length of stay based upon the guardianship hearing date but likely 3-5 days. Coding Level of Care Code Acute Code for Chg Fwd Diagnoses Psychosis F29 Adjustment disorder F43.20 Cluster B personality disorder F60.89 Chronic post-traumatic stress disorder F43.12 Amphetamine addiction F15.20 Anxiety and depression F41.9; F32.9
[2025-02-19 14:00] VITALS: BP 127/78; PULSE 109; RESP 18; TEMP 36.6; O2SAT 97
[2025-02-19 19:28] VITALS: BP 109/72; PULSE 86; RESP 17; TEMP 37.1; O2SAT 97
[2025-02-19] MEDS: cloZAPine 25 mg Tablet 100 MG PO (19:46)
[2025-02-20 06:00] VITALS: BP 114/81; PULSE 100; RESP 17; O2SAT 98
[2025-02-20] MEDS: cloZAPine 25 mg Tablet PO (08:37)
[2025-02-20] MEDS: hyDROXYzine 25 mg Capsule 50 MG PO (08:37)
[2025-02-20] MEDS: gabapentin 100 mg Capsule 300 MG PO ×3 (08:37→19:58)
[2025-02-20] MEDS: nicotine 4 mg lozenge MUCOUS MEM (08:37)
[2025-02-20] MEDS: ibuprofen 600 mg Tablet PO (08:37)
--- NOTE | 2025-02-20 09:57 | P.NPUPN_ITS ---
Subjective NPU 2 Subjective: Patient presented today reporting that she is doing okay. We discussed that her hearing will be in 2 days desire will be to help her discharge after her hearing at all possible. She denied any issues with the medications. We discussed the possibility of maybe increasing her Clozaril 1 more time before discharge. She denied any side effects of the medication. Mental Status Exam 2 MSE Comments: This is a slender, tall white female in hospital scrubs with poor grooming and eye contact. She was pleasant and more cooperative today. Poor dentition/absent teeth no abnormal movements except for psychomotor retardation. She appeared in no acute distress today. Speech was diminished in rate and volume but more spontaneous today. Mood described as okay. Her affect was subdued and mood congruent. Thought process was linear but very superficial. Thought content: Patient denied any suicidal or homicidal ideation. She remained guarded and no overt delusions were reported. She denied auditory hallucinations and denied visual hallucinations and did not appear to be responding to internal stimuli. Attention and concentration appeared limited and memory appeared unreliable but none were formally tested. She is alert and oriented x person and place. Insight, judgment were poor and impulse control was poor. Vitals/I&O/Wt Last Vital Signs Temp 98.7 F 02/19/25 19:28 Pulse 100 02/20/25 06:00 Resp 17 02/20/25 06:00 BP 114/81 02/20/25 06:00 Pulse Ox 98 02/20/25 06:00 O2 Del Method Room Air 02/19/25 14:00 02/19/25 02/20/25 02/20/25 22:59 06:59 14:59 Intake Total 240 / 240 Balance 240 / 240 Data NPU 02/18/25 10:05 02/11/25 11:35 A&P Assessment and plan (1) Psychosis: (2) Adjustment disorder: (3) Cluster B personality disorder: (4) Chronic post-traumatic stress disorder: (5) Amphetamine addiction: (6) Anxiety and depression: Plan This is a 44-year-old white female known from past admissions with reported extended history of trauma, intellectual disability, significant addiction and 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 Continue invega 3mg daily until 02/12/25 until Invega IM 234mg given on 02/12/25. Patient given invega IM 234mg on 01/07/25. Last Invega IM 156mg given 01/13/25. Next injection of invega 234mg IM due 02/12/2025. 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 Will try to evaluate the significant other thought disorder to consider Clozaril. Studies suggest that Invega and clozapine can work well together. Will start clozapine 25 mg every morning tomorrow and have increases the more likely in the evening dose. Her CBC did show platelets at borderline low. Will continue to monitor and would recommend discontinuing clozapine if platelets get to 100,000 or less. Next lab draw 02/18/2025. Patient denied any problem with medication. Increased Clozaril to 50 mg p.o. nightly. Will increase Clozaril to 25 mg in the morning and 100 mg at night. 2. Patient now on 21 day hold. 3. Obtain collateral information. 4. Encourage individual, group and milieu therapy. 5. Continue every 15 minute checks for safety. 6. Encourage sober living treatment after discharge at at the highest level of care to which she is willing to commit. 7. Check CT head, restart gabapentin as previously prescribed.-begin gabapentin 200mg tid. B. Obtain REBECCA evaluation for assessment of cognitive functioning to assist in determination of readiness for discharge. REBECCA shows needs in 11 of 13 domains and so we will file for level 2 and likely pursue guardianship. 90-day hold hearing 01/24/2025 and patient placed on hold. Level 2 completed by Misbah and kathie on 01/30/25. Patient provisionally accepted for placement at [facility], currently awaiting guardianship hearing scheduling. Guardianship hearing on we will attempt to get her discharge afternoon. PDMP PDMP Reviewed: Not Reviewed Involuntary Hold Information 2 Hold Status: Legal Status: 90 Day Hold Date/Time Hold Expires: 04/24/25 96 Hour Hold: 96 Hour Involuntary Admission: No Attestations NPU 2 Medical Necessity Statement*: Inpatient hospitalization is medically necessary and the clinically appropriate intervention at this time. We will monitor medications and make changes as indicated. The patient's likely length of stay based upon the guardianship hearing date but likely 2-4 days. Coding Level of Care Code Acute Code for [facility] Fwd Diagnoses Psychosis F29 Adjustment disorder F43.20 Cluster B personality disorder F60.89 Chronic post-traumatic stress disorder F43.12 Amphetamine addiction F15.20 Anxiety and depression F41.9; F32.9
[2025-02-20 14:00] VITALS: BP 114/77; PULSE 97; RESP 18; TEMP 36.7; O2SAT 96
[2025-02-20] MEDS: acetaminophen 325 mg Tablet 650 MG PO (15:14)
[2025-02-20 19:46] VITALS: BP 122/84; PULSE 107; RESP 17; TEMP 36.7; O2SAT 98
[2025-02-20] MEDS: cloZAPine 25 mg Tablet 100 MG PO (19:57)
[2025-02-21 06:00] VITALS: BP 112/81; PULSE 88; RESP 18; TEMP 37; O2SAT 95
[2025-02-21] MEDS: cloZAPine 25 mg Tablet PO (07:44)
[2025-02-21] MEDS: nicotine 4 mg lozenge MUCOUS MEM (07:44)
[2025-02-21] MEDS: gabapentin 100 mg Capsule 300 MG PO ×3 (07:45→19:19)
[2025-02-21] MEDS: acetaminophen 325 mg Tablet 650 MG PO ×2 (07:45→13:49)
[2025-02-21] MEDS: haloperidol 5 mg Tablet PO (09:36)
[2025-02-21] MEDS: diphenhydrAMINE 50 mg Capsule PO (09:37)
[2025-02-21] MEDS: benztropine 1 mg Tablet PO (09:37)
[2025-02-21] MEDS: nicotine 21 mg Patch 1 PATCH TRANSDERMA (09:37)
[2025-02-21] MEDS: ibuprofen 600 mg Tablet PO ×2 (12:04→19:16)
[2025-02-21] MEDS: OLANZapine 5 mg ODT PO (13:49)
[2025-02-21 14:00] VITALS: BP 111/71; PULSE 93; RESP 18; TEMP 36.6; O2SAT 99
--- NOTE | 2025-02-21 18:29 | W.PM.NPUPNS ---
Subjective NPU Subjective: Patient presented today reporting that things are going okay. She identified that they may be told her she would be able to participate by [employer]. Otherwise we discussed that the plan is for her to go to [facility] tomorrow after the hearing as long as Elizabeth Hickey can get court paperwork that the guardianship was initiated. She denied any new or pressing issues and denied any side effects of the medication and we discussed trying to decide whether we would increase her Clozaril dose prior to discharge. Mental Status Exam MSE Comments: This is a slender, tall white female in hospital scrubs with poor grooming and eye contact. She was pleasant and more cooperative today. Poor dentition/absent teeth no abnormal movements except for psychomotor retardation. She appeared in no acute distress today. Speech was diminished in rate and volume but more spontaneous today. Mood described as okay. Her affect was subdued and mood congruent. Thought process was linear but very superficial. Thought content: Patient denied any suicidal or homicidal ideation. She remained guarded and no overt delusions were reported. She denied auditory hallucinations and denied visual hallucinations and did not appear to be responding to internal stimuli. Attention and concentration appeared limited and memory appeared unreliable but none were formally tested. She is alert and oriented x person and place. Insight, judgment were poor and impulse control was poor. 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 Continue invega 3mg daily until 02/12/25 until Invega IM 234mg given on 02/12/25. Patient given invega IM 234mg on 01/07/25. Last Invega IM 156mg given 01/13/25. Next injection of invega 234mg IM due 02/12/2025. 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 Will try to evaluate the significant other thought disorder to consider Clozaril. Studies suggest that Invega and clozapine can work well together. Will start clozapine 25 mg every morning tomorrow and have increases the more likely in the evening dose. Her CBC did show platelets at borderline low. Will continue to monitor and would recommend discontinuing clozapine if platelets get to 100,000 or less. Next lab draw 02/18/2025. Patient denied any problem with medication. Increased Clozaril to 50 mg p.o. nightly. Will increase Clozaril to 25 mg in the morning and 100 mg at night. 2. Patient now on 21 day hold. 3. Obtain collateral information. 4. Encourage individual, group and milieu therapy. 5. Continue every 15 minute checks for safety. 6. Encourage sober living treatment after discharge at at the highest level of care to which she is willing to commit. 7. Check CT head, restart gabapentin as previously prescribed.-begin gabapentin 200mg tid. B. Obtain REBECCA evaluation for assessment of cognitive functioning to assist in determination of readiness for discharge. REBECCA shows needs in 11 of 13 domains and so we will file for level 2 and likely pursue guardianship. 90-day hold hearing 01/24/2025 and patient placed on hold. Level 2 completed by Misbah and kathie on 01/30/25. Patient provisionally accepted for placement at [facility], currently awaiting guardianship hearing scheduling. Guardianship hearing on we will attempt to get her discharge afternoon. PDMP PDMP Reviewed: Not Reviewed Involuntary Hold Information Hold Status: Legal Status: 90 Day Hold Date/Time Hold Expires: 04/24/25 96 Hour Hold: 96 Hour Involuntary Admission: No Attestations NPU Medical Necessity Statement*: Inpatient hospitalization is medically necessary and the clinically appropriate intervention at this time. We will monitor medications and make changes as indicated. The patient's likely length of stay based upon the guardianship hearing date but likely 2-4 days. Coding Level of Care Code Acute Code for [facility] Fwd Diagnoses Psychosis F29 Adjustment disorder F43.20 Cluster B personality disorder F60.89 Chronic post-traumatic stress disorder F43.12 Amphetamine addiction F15.20 Anxiety and depression F41.9; F32.9
[2025-02-21] MEDS: cloZAPine 25 mg Tablet 100 MG PO (19:18)
[2025-02-21 20:50] VITALS: BP 128/83; PULSE 100; RESP 18; TEMP 36.4; O2SAT 98
[2025-02-22] MEDS: acetaminophen 325 mg Tablet 650 MG PO ×2 (01:48→09:32)
[2025-02-22 06:00] VITALS: BP 115/74; PULSE 99; RESP 16; O2SAT 97
[2025-02-22] MEDS: cloZAPine 25 mg Tablet PO ×2 (08:15→19:13)
[2025-02-22] MEDS: gabapentin 100 mg Capsule 300 MG PO ×3 (08:16→19:12)
[2025-02-22] MEDS: hyDROXYzine 25 mg Capsule 50 MG PO (09:04)
[2025-02-22] MEDS: ibuprofen 600 mg Tablet PO ×2 (11:30→19:08)
[2025-02-22] MEDS: OLANZapine 5 mg ODT PO (11:30)
[2025-02-22 14:00] VITALS: BP 121/79; PULSE 88; RESP 16; TEMP 36.3; O2SAT 97
[2025-02-22] MEDS: nicotine 21 mg Patch 1 PATCH TRANSDERMA (14:59)
--- NOTE | 2025-02-22 16:52 | P.NPUPN_ITS ---
Subjective NPU 2 Subjective: Patient presented today feeling a little down because she interpreted not leaving today as meaning she was going be here a lot longer. We discussed that the paperwork should be able to be there in the morning for morning discharge but that we will keep her posted as to what is going on. She denied any changes and was looking forward to being able to go to a new facility. She denied any side effects to her medication. Mental Status Exam 2 MSE Comments: This is a slender, tall white female in hospital scrubs with poor grooming and eye contact. She was pleasant and more cooperative today. Poor dentition/absent teeth no abnormal movements except for psychomotor retardation. She appeared in no acute distress today. Speech was diminished in rate and volume but more spontaneous today. Mood described as okay. Her affect was subdued and mood congruent. Thought process was linear but very superficial. Thought content: Patient denied any suicidal or homicidal ideation. She remained guarded and no overt delusions were reported. She denied auditory hallucinations and denied visual hallucinations and did not appear to be responding to internal stimuli. Attention and concentration appeared limited and memory appeared unreliable but none were formally tested. She is alert and oriented x person and place. Insight, judgment were poor and impulse control was poor. 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 Continue invega 3mg daily until 02/12/25 until Invega IM 234mg given on 02/12/25. Patient given invega IM 234mg on 01/07/25. Last Invega IM 156mg given 01/13/25. Next injection of invega 234mg IM due 02/12/2025. 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 Will try to evaluate the significant other thought disorder to consider Clozaril. Studies suggest that Invega and clozapine can work well together. Will start clozapine 25 mg every morning tomorrow and have increases the more likely in the evening dose. Her CBC did show platelets at borderline low. Will continue to monitor and would recommend discontinuing clozapine if platelets get to 100,000 or less. Next lab draw 02/18/2025. Patient denied any problem with medication. Increased Clozaril to 50 mg p.o. nightly. Increased Clozaril to 25 mg in the morning and 100 mg at night. Will increase Clozaril to 50 mg in the morning and 125 mg at night. She will discharge on this dose and outpatient will need to continue to titrate this to effect. 2. Patient now on 21 day hold. 3. Obtain collateral information. 4. Encourage individual, group and milieu therapy. 5. Continue every 15 minute checks for safety. 6. Encourage sober living treatment after discharge at at the highest level of care to which she is willing to commit. 7. Check CT head, restart gabapentin as previously prescribed.-begin gabapentin 200mg tid. B. Obtain REBECCA evaluation for assessment of cognitive functioning to assist in determination of readiness for discharge. REBECCA shows needs in 11 of 13 domains and so we will file for level 2 and likely pursue guardianship. 90-day hold hearing 01/24/2025 and patient placed on hold. Level 2 completed by Misbah and associates on 01/30/25. Patient provisionally accepted for placement at [facility], currently awaiting guardianship hearing scheduling. Guardianship hearing today, and we will attempt to get her discharge this afternoon. We are waiting to see if that paperwork reaches the facility but is looking like her likely discharge will be tomorrow. PDMP PDMP Reviewed: Not Reviewed Involuntary Hold Information 2 Hold Status: Legal Status: 90 Day Hold Date/Time Hold Expires: 04/24/25 96 Hour Hold: 96 Hour Involuntary Admission: No Attestations NPU 2 Medical Necessity Statement*: Inpatient hospitalization is medically necessary and the clinically appropriate intervention at this time. We will monitor medications and make changes as indicated. The patient's likely length of stay based upon the guardianship hearing date but likely 1-3 days. Coding Level of Care Code Acute Code for [facility] Fwd Diagnoses Psychosis F29 Adjustment disorder F43.20 Cluster B personality disorder F60.89 Chronic post-traumatic stress disorder F43.12 Amphetamine addiction F15.20 Anxiety and depression F41.9; F32.9
[2025-02-22] MEDS: cloZAPine 100 mg Tablet PO (19:14)
[2025-02-22 19:46] VITALS: BP 116/79; PULSE 93; RESP 17; TEMP 36.4; O2SAT 95
[2025-02-23 06:00] VITALS: BP 111/72; PULSE 103; RESP 17; TEMP 36.9; O2SAT 96
[2025-02-23] MEDS: acetaminophen 325 mg Tablet 650 MG PO ×2 (06:22→13:23)
[2025-02-23] MEDS: cloZAPine 25 mg Tablet 50 MG PO (09:09)
[2025-02-23] MEDS: ibuprofen 600 mg Tablet PO (09:09)
[2025-02-23] MEDS: gabapentin 100 mg Capsule 300 MG PO ×2 (09:10→14:47)
[2025-02-23 10:30] VITALS: BP 111/72; PULSE 103; RESP 17; TEMP 36.9; O2SAT 96
[2025-02-23 14:00] VITALS: BP 121/79; PULSE 107; RESP 16; TEMP 36.6; O2SAT 94
--- NOTE | 2025-02-23 14:11 | PC.NURSE ---
Signee called [facility] and gave report to Kely. Signee let nurse know that pt.'s next CBC was scheduled for 02/25/25. Nurse stated that all we needed to do was fax a current medication list and the group home would order her medications from their pharmacy.
--- NOTE | 2025-02-23 15:36 | W.PM.NPUDCS ---
Diagnoses at Discharge Discharge Diagnosis (1) Psychosis: Status: Acute (2) Adjustment disorder: Status: Chronic (3) Cluster B personality disorder: Status: Acute (4) Chronic post-traumatic stress disorder: Status: Acute (5) Amphetamine addiction: Status: Chronic (6) Anxiety and depression: Status: Chronic Reason for Visit Reason for Visit: 96 hour hold Involuntary Hold Information Hold Status: Legal Status: 90 Day Hold Date/Time Hold Expires: 04/24/25 96 Hour Hold: 96 Hour Involuntary Admission: No Mental Status Exam MSE Comments: This is a slender, tall white female in hospital scrubs with poor grooming and eye contact. She was pleasant and more cooperative today. Poor dentition/absent teeth no abnormal movements except for psychomotor retardation. She appeared in no acute distress today. Speech was diminished in rate and volume but more spontaneous today. Mood described as okay. Her affect was subdued and mood congruent. Thought process was linear but very superficial. Thought content: Patient denied any suicidal or homicidal ideation. She remained guarded and no overt delusions were reported. She denied auditory hallucinations and denied visual hallucinations and did not appear to be responding to internal stimuli. Attention and concentration appeared limited and memory appeared unreliable but none were formally tested. She is alert and oriented x person and place. Insight, judgment were poor and impulse control was poor. Discharge Data Studies Completed and Pending: Completed Studies During Hospitalization Category Date Time Status CT head wo con* [id number] Routine Cat Scan 02/07/25 12:28 Completed Radiology Impressions Head CT 02/07/25 12:28 IMPRESSION: 1. Stable noncontrast head CT. No acute interval change. 2. No paranasal sinus disease. Laboratory Results WBC 3.80 10^3/uL (3.2 9-11.43) 02/18/25 10:05 Corrected WBC Cancelled 02/18/25 09:10 RBC 4.28 10^6/uL (3.8 5-5.65) 02/18/25 10:05 Hgb 12.70 g/dL (11.27 -16.99) 02/18/25 10:05 Hct 40.1 % (36-47) 02/18/25 10:05 MCV 93.7 fl (85-98) 02/18/25 10:05 MCH 29.7 pg (27-33) 02/18/25 10:05 MCHC 31.7 g/dL (30-55) 02/18/25 10:05 RDW 13.1 % (12.1-15.1 ) 02/18/25 10:05 Plt Count 154 10^3/cmm (157 -399) L 02/18/25 10:05 MPV 10.5 fL (7.4-10.4 ) H 02/18/25 10:05 Gran % Cancelled 02/18/25 09:10 Neut % (Auto) 56.1 % 02/18/25 10:05 Lymph % (Auto) 32.9 % 02/18/25 10:05 Pennington % (Auto) 8.9 % 02/18/25 10:05 Eos % (Auto) 2.1 % 02/18/25 10:05 Baso % (Auto) 0.0 % 02/18/25 10:05 Neut # (Auto) 2.13 10^3/uL (1.8 -7.7) 02/18/25 10:05 Lymph # (Auto) 1.3 10^3/uL (0.8- 4.8) 02/18/25 10:05 Pennington # (Auto) 0.3 10^3/uL (0.2- 0.9) 02/18/25 10:05 Eos # (Auto) 0.1 10^3/uL (0.0- 0.8) 02/18/25 10:05 Baso # (Auto) 0.0 10^3/uL (0.0- 0.1) 02/18/25 10:05 Absolute Gran (aut o) Cancelled 02/18/25 09:10 Nucleated RBC % (a uto) 0 % 02/18/25 10:05 Nucleated RBCs # 0.0 /100WBC 02/18/25 10:05 Sodium 139 mmol/L (136-1 45) 02/11/25 11:35 Potassium 3.8 mmol/L (3.5-5 .1) 02/11/25 11:35 Chloride 104 mmol/L (98-10 7) 02/11/25 11:35 Carbon Dioxide 24 mmol/L (22-29) 02/11/25 11:35 Anion Gap 14.8 (5-19) 02/11/25 11:35 BUN 19 mg/dL (6-20) 02/11/25 11:35 Creatinine 0.6 mg/dL (0.5-0. 9) 02/11/25 11:35 GFR Calculation 109.1 mL/min (90- 130) 02/11/25 11:35 Glucose 112 mg/dL (65-115 ) 02/11/25 11:35 Calculated Osmolal ity 291 mOsm/kg (285- 295) 02/11/25 11:35 Calcium 9.2 mg/dL (8.5-10 .5) 02/11/25 11:35 Total Bilirubin 0.4 mg/dL (0.15-1 .2) 02/11/25 11:35 AST 96 U/L (0-32) H 02/11/25 11:35 ALT 190 U/L (0-33) H 02/11/25 11:35 Alkaline Phosphata se 58 U/L (35-105) 02/11/25 11:35 Total Protein 7.4 g/dL (6.6-8.7 ) 02/11/25 11:35 Albumin 4.2 g/dL (3.5-5.2 ) 02/11/25 11:35 Globulin 3.2 g/dL (1.3-4.6 ) 02/11/25 11:35 TSH 2.47 uIU/mL (0.27 -4.20) 12/26/24 19:27 HCG, Qual Negative (Negati ve) 01/16/25 09:30 Urine Color Yellow (Yellow) 01/15/25 09:30 Urine Appearance Clear (CLEAR) 01/15/25 09:30 Urine pH 6.0 (5-7) 01/15/25 09:30 Ur Specific Gravit y 1.013 (1.005-1.0 30) 01/15/25 09:30 Urine Protein Negative (Negati ve) 01/15/25 09:30 Urine Glucose (UA) Negative (Normal ) 01/15/25 09:30 Urine Ketones Negative (Negati ve) 01/15/25 09:30 Urine Blood Negative (Negati ve) 01/15/25 09:30 Urine Nitrate Negative (Negati ve) 01/15/25 09:30 Urine Bilirubin Negative (Negati ve) 01/15/25 09:30 Prot Sulfosalicyli c Acd Cancelled 01/12/25 09:30 Urine Urobilinogen 1.0 mg/dL (Negati ve) 01/15/25 09:30 Ur Leukocyte Carmela ase Negative (Negati ve) 01/15/25 09:30 Urine RBC 0-2 /hpf (0-2) 01/15/25 09:30 Urine WBC 0-5 /hpf (0-5) 01/15/25 09:30 Ur Squamous Epith Cells 0-5 /hpf (0-5) 01/15/25 09:30 Ur Transition Epit h Cell Cancelled 01/12/25 09:30 Ur Renal Epithelia l Cell Cancelled 01/12/25 09:30 Calcium Oxalate Cr ystal Cancelled 01/12/25 09:30 Uric Acid Crystals Cancelled 01/12/25 09:30 Triple Phos Alice ls Cancelled 01/12/25 09:30 Other Crystals Cancelled 01/12/25 09:30 Amorphous Sediment Not Reportable 01/15/25 09:30 Urine Bacteria None seen /hpf (N ONE) 01/15/25 09:30 Hyaline Casts 2.05 /lpf 01/15/25 09:30 Fine Granular Cast s Cancelled 01/12/25 09:30 Coarse Granular Ca sts Cancelled 01/12/25 09:30 RBC Casts Cancelled 01/12/25 09:30 Other Casts Cancelled 01/12/25 09:30 Urine Mucus Cancelled 01/12/25 09:30 Urine Trichomonas Cancelled 01/12/25 09:30 Urine Yeast Cancelled 01/12/25 09:30 Urine Sperm Cancelled 01/12/25 09:30 Ur Oval Fat Bodies Cancelled 01/12/25 09:30 Salicylates 0.4 mg/dL (3-10) L 12/26/24 19:27 Urine Opiates Scre en Negative ng/mL (N egative) 12/26/24 19:18 Acetaminophen < 5.0 ug/mL (10-3 0) L 12/26/24 19:27 Ur Barbiturates Sc reen Negative ng/mL (N egative) 12/26/24 19:18 Ur Phencyclidine S crn Negative ng/mL (N egative) 12/26/24 19:18 Ur Amphetamines Sc reen Positive ng/mL (N egative) H 12/26/24 19:18 U Benzodiazepines Scrn Negative ng/mL (N egative) 12/26/24 19:18 Urine Cocaine Scre en Negative ng/mL (N egative) 12/26/24 19:18 U Marijuana (THC) Screen Negative ng/mL (N egative) 12/26/24 19:18 Ethyl Alcohol < 10 mg/dL (0-10) 12/26/24 19:27 Vitals: Last Vital Signs Temp 97.9 F 02/23/25 14:00 Pulse 107 H 02/23/25 14:00 Resp 16 02/23/25 14:00 BP 121/79 02/23/25 14:00 Pulse Ox 94 02/23/25 14:00 O2 Del Method Room Air 02/23/25 14:00 Discharge Plan Discharge Patient Disposition: Home Condition: Stable Prescriptions: New gabapentin 300 mg capsule 300 mg PO TID 30 Days Qty: 90 1RF clozapine 25 mg Tablet 50 mg PO BID 7 Days Qty: 21 1RF Rx Instructions: Take 2 tabs in the morning and 1 tab at bedtime with 100 mg dose at bedtime hydroxyzine pamoate 25 mg Capsule 50 mg PO Q6H PRN (Reason: Anxiety) 30 Days Qty: 120 1RF clozapine 100 mg tablet 100 mg PO BEDTIME 7 Days Qty: 7 1RF Rx Instructions: Take 1 tab at bedtime along with a 25 mg tab for total of 125 mg at bedtime. Invega Sustenna 234 mg/1.5 mL syringe 234 mg IM Q30D 30 Days Qty: 1.5 1RF Rx Instructions: Next injection 03/14/2025 then as directed Continued imiquimod [Aldara] 5 % cream in packet 1 applic topical .at bedtime M-F Qty: 12 0RF spinosad [Natroba] 0.9 % suspension 30 ml topical Q7D Qty: 240 0RF Rx Instructions: apply enough to thoroughly wet hair; shampoo in; leave on for 10 mins ; rinse completely nicotine [Nicoderm CQ] 21 mg/24 hr patch 24 hour 1 patch transdermal DAILY Qty: 28 0RF medroxyprogesterone [Depo-Provera] 150 mg/mL syringe 150 mg IM .every 12 weeks Qty: 1 0RF Discontinued hydroxyzine pamoate 25 mg capsule 25 mg PO BID Qty: 60 2RF gabapentin 800 mg tablet 800 mg PO TID Qty: 90 2RF duloxetine [Cymbalta] 20 mg capsule,delayed release(DR/EC) 20 mg PO BID Qty: 60 2RF Discharge Orders: Discharge Order (Routine); Ordered 02/23/25 Ordered By: Stiven Borges Referrals: [facility] [Other] Honorio Solares FNP-C [Primary Care Provider, [facility]] Discharge Diet: Regular Discharge Activity: Resume usual activity Patient Instructions: Borderline Personality Disorder (DC), Opioid Safety Discharge Attestations NPU Time Spent in Discharge Care*: less than 30 min Specific Discharge Activities: Specific discharge activities: educating patient, discussing with adult protective caseworker/social workers/dc planners, documenting/other paperwork and evaluating patient/reviewing data Coding Level of Care Code Acute Code for [facility] Fwd Diagnoses Psychosis F29 Adjustment disorder F43.20 Cluster B personality disorder F60.89 Chronic post-traumatic stress disorder F43.12 Amphetamine addiction F15.20 Anxiety and depression F41.9; F32.9
--- NOTE | 2025-02-24 14:27 | PC.NURSE ---
Faxed most recent CBC to [facility]. Spoke with a Alyson CATES stating they could not get a certain medication without a CBC.
== END 2025-02-23 15:15 | disposition home or self-care (01) | DRG 897 ==
LOC: ER 20:22 → NP 20:52
PROVIDERS: Admitting Provider Psychiatry & Neurology Psychiatry; Emergency Provider Emergency Medicine; PCP Nurse Practitioner; Visit Provider Psychiatry & Neurology Psychiatry
DX: F15.23 Other stimulant dependence with withdrawal (principal); F15.288 Other stimulant dependence with other stimulant-induced disorder; F43.20 Adjustment disorder, unspecified; F60.89 Other specific personality disorders; F43.12 Post-traumatic stress disorder, chronic; F32.A Depression, unspecified; F32.9 Major depressive disorder, single episode, unspecified; F29 Unspecified psychosis not due to a substance or known physiological condition; F79 Unspecified intellectual disabilities; F17.210 Nicotine dependence, cigarettes, uncomplicated; T43.596A Underdosing of other antipsychotics and neuroleptics, initial encounter; R51.9 Headache, unspecified; M54.2 Cervicalgia
CPT/HCPCS: 36415; 70450; 80048; 80053; 80306; 80307; 81001; 81025; 84443; 85025; 93005; 96372; 97150; 97165; 97167; 99285; J2060; J3486; J9999; Q0162; Q0163